=== PATIENT | female | born 1960 | race Caucasian/White ===

== ENCOUNTER → 2016-09-27 | Outpatient (CLI) | payer OTHER ==
--- NOTE | 2016-09-27 16:10 | BD ---
EXAMINATION TYPE: MG DEXA axial skeleton. DATE OF EXAM: 09/27/2016 COMPARISON: NONE CLINICAL HISTORY: post menopausal Height: 5'5 Weight: 189 FRAX RISK QUESTIONS: Alcohol (3 or more units per day): no Family History (Parent hip fracture): no Glucocorticoids (More than 3mos): no (Ex: prednisone, prednisolone, methylprednisolone, dexamethasone, and hydrocortisone). History of Fracture in Adulthood: no Secondary Osteoporosis: 1. Type 1 Diabetes: no 2. Hyperthyroidism: no 3. Menopause before 45: yes 4. Malnutrition: no 5. Chronic liver disease: no Rheumatoid Arthritis: no Current Tobacco Use: yes RISK FACTORS HISTORY OF: Surgery to Spine/ C 45 fusion When: 2006 Postmenopausal woman: MEDICATIONS: Additional Medications: blood pressure, Paxil, albuterin, Additional History: post menopausal EXAM MEASUREMENTS: Bone mineral densitometry was performed using the [facility] System. Bone mineral density as measured about the Lumbar spine is: ----- L1-L4(G/cm2): 1.206 T Score Values are as follows: ----- L2: -0.4 ----- L3: -0.1 ----- L4: 0.5 ----- L1-L4:0.1 Bone mineral density about the R hip (g/cm2): 0.781 Bone mineral density about the L hip (g/cm2): 0.756 T Score values are as follows: -----R Neck: -1.9 -----L Neck: -2.0 -----R Total: -1.6 -----L Total: -1.8 IMPRESSION: Osteopenia (T Score between -2.5 and -1 as noted by T score values: [place] Hips There is slightly increased risk of fracture and the patient may be considered for treatment. Re-Screen 2-5 years. NOTE: T-SCORE=SD OF THE YOUNG ADULT MEAN.
--- NOTE | 2016-09-28 13:11 | MM ---
Reason for exam: screening (asymptomatic). Last mammogram was performed 2 years and 8 months ago. History: Patient is postmenopausal. Family history of breast cancer in maternal grandmother, breast cancer in paternal aunt, and breast cancer in paternal grandmother. Took estrogen for 7 years. Physical Findings: A clinical breast exam by your physician is recommended on an annual basis and results should be correlated with mammographic findings. MG Screening Mammo w CAD Bilateral CC and MLO view(s) were taken. Prior study comparison: January 29, 2014, bilateral MG screening mammo w CAD. April 21, 2011, bilateral digital screening mammo w/CAD. There are scattered fibroglandular densities. No significant changes when compared with prior studies. ASSESSMENT: Negative, BI-RAD 1 RECOMMENDATION: Routine screening mammogram of both breasts in 1 year.
== END | disposition home or self-care (01) ==
LOC: RADMAMWWP 15:14
PROVIDERS: ATTEND Family Medicine
DX: Z12.31 Encounter for screening mammogram for malignant neoplasm of breast (principal); N95.1 Menopausal and female climacteric states; M85.80 Other specified disorders of bone density and structure, unspecified site
CPT/HCPCS: 77080; G0202

== ENCOUNTER 2017-05-11 20:27 | Inpatient (IN) | payer MEDICAID, OTHER ==
[2017-05-11] MEDS ORDERED: SODIUM CHLORIDE 0.9% 1,000 ML IV STA (20:42)
[2017-05-11] MEDS: SODIUM CHLORIDE 0.9% 1,000 ML IV SCH (20:55)
[2017-05-11 20:56] LABS: Basophils % (A) 1 %; Eosinophils # (A) 0.1 k/uL (0-0.7); Eosinophils % (A) 3 %; HGB 12.3 gm/dL (11.4-16.0); Lymphocytes # (A) 2.2 k/uL (1.0-4.8); Lymphocytes % (A) 43 %; MCH 31.4 pg (25.0-35.0); MCHC 33.3 g/dL (31.0-37.0); MCV 94.4 fL (80.0-100.0); Mean Platelet Volume 7.9; Monocytes # (A) 0.3 k/uL (0-1.0); Monocytes % (A) 5 %; Neutrophils # (A) 2.4 k/uL (1.3-7.7); Neutrophils % (A) 47 %; Platelet Count 135 k/uL (150-450); RBC 3.92 m/uL (3.80-5.40); RDW 13.2 % (11.5-15.5); WBC 5.1 k/uL (3.8-10.6)
--- NOTE | 2017-05-11 20:57 | ED ---
General Adult HPI - General Source: patient, EMS, RN notes reviewed, old records reviewed Mode of arrival: EMS Limitations: altered mental status <Rd Concepcion - Last Filed: 05/11/17 21:59> <Giancarlo Cornell - Last Filed: 05/12/17 06:51> - General Chief complaint: Overdose Stated complaint: overdose Time Seen by Provider: 05/11/17 20:36 - History of Present Illness Initial comments: 57-year-old female presents with suspected overdose. Patient To her boyfriend lisette walden, she was found by EMS with an empty prescription bottle for trazodone. These were 100 mg tablets, initial troponin was 30. Patient admits that she took 3 or 4 tablets. She also admits to drinking alcohol. At the time my evaluation she states this was an attempt to sleep. She denies any pain complaints. She is alert and oriented 3. (Rd Concepcion) - Related Data Home Medications Medication Instructions Recorded Confirmed Bisoprolol-Hctz 2.5-6.25 mg [Ziac 1 tab PO DAILY 05/11/17 05/11/17 2.5-6.25] Ergocalciferol (Vitamin D2) 50,000 unit PO Q30D 05/11/17 05/11/17 [Vitamin D2] Ibuprofen [Motrin] 800 mg PO TID PRN 05/11/17 05/11/17 Loratadine [Claritin] 10 mg PO DAILY 05/11/17 05/11/17 PARoxetine HCL [Paxil] 40 mg PO DAILY 05/11/17 05/11/17 traZODone HCL [Desyrel] 100 mg PO HS 05/11/17 05/11/17 Allergies Allergy/AdvReac Type Severity Reaction Status Date / Time codeine Allergy Unknown Verified 05/11/17 20:30 Sulfa (Sulfonamide Allergy Unknown Verified 05/11/17 20:30 Antibiotics) Review of Systems ROS Other: All systems not noted in ROS Statement are negative. <Rd Concepcion - Last Filed: 05/11/17 21:59> ROS Other: All systems not noted in ROS Statement are negative. <Giancarlo Cornell - Last Filed: 05/12/17 06:51> ROS Statement: Those systems with pertinent positive or pertinent negative responses have been documented in the HPI. Past Medical History Past Medical History: Hypertension Additional Past Medical History / Comment(s): gastric by pass in 2001 History of Any Multi-Drug Resistant Organisms: None Reported Past Surgical History: Cholecystectomy Additional Past Surgical History / Comment(s): GASTRIC BYPASS. Past Anesthesia/Blood Transfusion Reactions: No Reported Reaction Past Psychological History: Depression Smoking Status: Unknown if ever smoked Past Alcohol Use History: Heavy, Occasional Past Drug Use History: Unable to Obtain - Past Family History Father Family Medical History: Cancer Additional Family Medical History / Comment(s): both mom and dad of CA and sister has diabetes <Rd Concepcion - Last Filed: 05/11/17 21:59> General Exam Limitations: altered mental status General appearance: lethargic Head exam: Present: atraumatic, normocephalic Eye exam: Present: normal appearance, PERRL ENT exam: Present: mucous membranes dry Neck exam: Present: normal inspection. Absent: tenderness, meningismus Respiratory exam: Present: normal lung sounds bilaterally. Absent: respiratory distress Cardiovascular Exam: Present: regular rate, normal rhythm GI/Abdominal exam: Present: soft. Absent: distended, tenderness Extremities exam: Present: normal inspection, full ROM. Absent: tenderness, normal capillary refill Neurological exam: Present: alert, oriented X3, CN II-XII intact. Absent: motor sensory deficit Psychiatric exam: Present: depressed, flat affect, suicidal ideation Skin exam: Present: warm, dry, intact. Absent: cyanosis, diaphoretic <Rd Concepcion - Last Filed: 05/11/17 21:59> Course <Rd Concepcion - Last Filed: 05/11/17 21:59> <Giancarlo Cornell - Last Filed: 05/12/17 06:51> Vital Signs 05/11/17 05/11/17 05/11/17 20:30 22:01 23:18 Temperature 97.0 F L Pulse Rate 81 87 73 Respiratory 18 18 18 Rate Blood Pressure 128/70 127/75 95/57 O2 Sat by Pulse 100 95 98 Oximetry 05/12/17 05/12/17 02:00 04:15 Temperature 76 F L Pulse Rate 77 Respiratory 18 18 Rate Blood Pressure 92/50 108/55 O2 Sat by Pulse 95 94 L Oximetry - Reevaluation(s) Reevaluation #1: 05/11/17 22:00 Case discussed with poison control, recommend monitoring of QT, recommending giving magnesium sulfate for QT greater than 500. Repeat EKG does show QT at 511, she received 2 g of IV magnesium. Patient did try recommends 6 hours monitoring for trazodone overdose, and patient will be observed awaiting clinical sobriety. She will be evaluated by EPS (Rd Concepcion) Reevaluation #2: 05/12/17 0100 Patient's care is signed out to Dr. Cornell at shift change, awaiting sobriety, medical clearance, and EPS evaluation for suicide attempt. (Rd Concepcion) 05/12/17 02:45 Repeat EKG shows normal sinus rhythm 79. IA 152. QRS 90. QT or 28. QTC 490. Normal axis. Normal QRS. No acute ST change. (Giancarlo Cornell) EKG Findings - EKG Comments: EKG Findings:: Sinus rhythm with occasional PVC, ventricular rate 78, IA interval 172, QRS duration 108, QTC is prolonged at 501. No signs of acute ischemia. Repeat EKG at 2156 shows normal sinus rhythm with prolonged QT, ventricular rate 75, IA interval 166, QRS duration 100, QTC 511 which is prolonged. <Rd Concepcion - Last Filed: 05/11/17 21:59> Medical Decision Making - Lab Data Result diagrams: 05/11/17 20:40 05/11/17 20:40 <Rd Concepcion - Last Filed: 05/11/17 21:59> - Lab Data Result diagrams: 05/11/17 20:40 05/11/17 20:40 <Giancarlo Cornell - Last Filed: 05/12/17 06:51> - Medical Decision Making Patient was seen by mental health services, who will admit. (Giancarlo Cornell) - Lab Data Lab Results 05/11/17 05/11/17 05/11/17 Range/Units 20:40 20:40 20:40 WBC 5.1 (3.8-10.6) k/uL RBC 3.92 (3.80-5.40) m/uL Hgb 12.3 (11.4-16.0) gm/dL Hct 37.0 (34.0-46.0) % MCV 94.4 (80.0-100.0) fL MCH 31.4 (25.0-35.0) pg MCHC 33.3 (31.0-37.0) g/dL RDW 13.2 (11.5-15.5) % Plt Count 135 L (150-450) k/uL Neutrophils % 47 % Lymphocytes % 43 % Monocytes % 5 % Eosinophils % 3 % Basophils % 1 % Neutrophils # 2.4 (1.3-7.7) k/uL Lymphocytes # 2.2 (1.0-4.8) k/uL Monocytes # 0.3 (0-1.0) k/uL Eosinophils # 0.1 (0-0.7) k/uL Basophils # 0.0 (0-0.2) k/uL PT (9.0-12.0) sec INR (<1.2) Sodium 141 (137-145) mmol/L Potassium 3.3 L (3.5-5.1) mmol/L Chloride 104 (98-107) mmol/L Carbon Dioxide 21 L (22-30) mmol/L Anion Gap 16 mmol/L BUN 17 (7-17) mg/dL Creatinine 0.50 L (0.52-1.04) mg/dL Est GFR (CKD-EPI)AfAm >90 (>60 ml/min/1.73 sqM) Est GFR (CKD-EPI)NonAf >90 (>60 ml/min/1.73 sqM) Glucose 124 H (74-99) mg/dL Lactic Ac Sepsis Rflx Plasma Lactic Acid Jet 2.4 H* (0.7-2.0) mmol/L Calcium 8.2 L (8.4-10.2) mg/dL Phosphorus 4.3 (2.5-4.5) mg/dL Magnesium 2.0 (1.6-2.3) mg/dL Total Bilirubin <0.1 L (0.2-1.3) mg/dL AST 33 (14-36) U/L ALT 32 (9-52) U/L Alkaline Phosphatase 92 (38-126) U/L Total Protein 5.9 L (6.3-8.2) g/dL Albumin 3.6 (3.5-5.0) g/dL Lipase 152 (23-300) U/L Urine Color Urine Appearance (Clear) Urine pH (5.0-8.0) Ur Specific [place] (1.001-1.035) Urine Protein (Negative) Urine Glucose (UA) (Negative) Urine Ketones (Negative) Urine Blood (Negative) Urine Nitrite (Negative) Urine Bilirubin (Negative) Urine Urobilinogen (<2.0) mg/dL Ur Leukocyte Esterase (Negative) Urine RBC (0-5) /hpf Urine Mucus (None) /hpf Salicylates <1.0 mg/dL Urine Opiates Screen (NotDetected) Ur Oxycodone Screen (NotDetected) Urine Methadone Screen (NotDetected) Ur Propoxyphene Screen (NotDetected) Acetaminophen <10.0 ug/mL Ur Barbiturates Screen (NotDetected) U Tricyclic Antidepress (NotDetected) Ur Phencyclidine Scrn (NotDetected) Ur Amphetamines Screen (NotDetected) U Methamphetamines Scrn (NotDetected) U Benzodiazepines Scrn (NotDetected) Urine Cocaine Screen (NotDetected) U Marijuana (THC) Screen (NotDetected) Serum Alcohol 236 mg/dL 05/11/17 05/11/17 05/11/17 Range/Units 20:40 20:47 20:47 WBC (3.8-10.6) k/uL RBC (3.80-5.40) m/uL Hgb (11.4-16.0) gm/dL Hct (34.0-46.0) % MCV (80.0-100.0) fL MCH (25.0-35.0) pg MCHC (31.0-37.0) g/dL RDW (11.5-15.5) % Plt Count (150-450) k/uL Neutrophils % % Lymphocytes % % Monocytes % % Eosinophils % % Basophils % % Neutrophils # (1.3-7.7) k/uL Lymphocytes # (1.0-4.8) k/uL Monocytes # (0-1.0) k/uL Eosinophils # (0-0.7) k/uL Basophils # (0-0.2) k/uL PT 10.1 (9.0-12.0) sec INR 1.0 (<1.2) Sodium (137-145) mmol/L Potassium (3.5-5.1) mmol/L Chloride (98-107) mmol/L Carbon Dioxide (22-30) mmol/L Anion Gap mmol/L BUN (7-17) mg/dL Creatinine (0.52-1.04) mg/dL Est GFR (CKD-EPI)AfAm (>60 ml/min/1.73 sqM) Est GFR (CKD-EPI)NonAf (>60 ml/min/1.73 sqM) Glucose (74-99) mg/dL Lactic Ac Sepsis Rflx Plasma Lactic Acid Jet (0.7-2.0) mmol/L Calcium (8.4-10.2) mg/dL Phosphorus (2.5-4.5) mg/dL Magnesium (1.6-2.3) mg/dL Total Bilirubin (0.2-1.3) mg/dL AST (14-36) U/L ALT (9-52) U/L Alkaline Phosphatase (38-126) U/L Total Protein (6.3-8.2) g/dL Albumin (3.5-5.0) g/dL Lipase (23-300) U/L Urine Color Yellow Urine Appearance Clear (Clear) Urine pH 5.0 (5.0-8.0) Ur Specific [place] 1.011 (1.001-1.035) Urine Protein Negative (Negative) Urine Glucose (UA) Negative (Negative) Urine Ketones Negative (Negative) Urine Blood Trace H (Negative) Urine Nitrite Negative (Negative) Urine Bilirubin Negative (Negative) Urine Urobilinogen <2.0 (<2.0) mg/dL Ur Leukocyte Esterase Negative (Negative) Urine RBC 2 (0-5) /hpf Urine Mucus Rare H (None) /hpf Salicylates mg/dL Urine Opiates Screen Not Detected (NotDetected) Ur Oxycodone Screen Not Detected (NotDetected) Urine Methadone Screen Not Detected (NotDetected) Ur Propoxyphene Screen Not Detected (NotDetected) Acetaminophen ug/mL Ur Barbiturates Screen Not Detected (NotDetected) U Tricyclic Antidepress Not Detected (NotDetected) Ur Phencyclidine Scrn Not Detected (NotDetected) Ur Amphetamines Screen Not Detected (NotDetected) U Methamphetamines Scrn Not Detected (NotDetected) U Benzodiazepines Scrn Not Detected (NotDetected) Urine Cocaine Screen Not Detected (NotDetected) U Marijuana (THC) Screen Not Detected (NotDetected) Serum Alcohol mg/dL 05/11/17 05/12/17 Range/Units 21:22 00:32 WBC (3.8-10.6) k/uL RBC (3.80-5.40) m/uL Hgb (11.4-16.0) gm/dL Hct (34.0-46.0) % MCV (80.0-100.0) fL MCH (25.0-35.0) pg MCHC (31.0-37.0) g/dL RDW (11.5-15.5) % Plt Count (150-450) k/uL Neutrophils % % Lymphocytes % % Monocytes % % Eosinophils % % Basophils % % Neutrophils # (1.3-7.7) k/uL Lymphocytes # (1.0-4.8) k/uL Monocytes # (0-1.0) k/uL Eosinophils # (0-0.7) k/uL Basophils # (0-0.2) k/uL PT (9.0-12.0) sec INR (<1.2) Sodium (137-145) mmol/L Potassium (3.5-5.1) mmol/L Chloride (98-107) mmol/L Carbon Dioxide (22-30) mmol/L Anion Gap mmol/L BUN (7-17) mg/dL Creatinine (0.52-1.04) mg/dL Est GFR (CKD-EPI)AfAm (>60 ml/min/1.73 sqM) Est GFR (CKD-EPI)NonAf (>60 ml/min/1.73 sqM) Glucose (74-99) mg/dL Lactic Ac Sepsis Rflx Y Plasma Lactic Acid Jet 1.7 (0.7-2.0) mmol/L Calcium (8.4-10.2) mg/dL Phosphorus (2.5-4.5) mg/dL Magnesium (1.6-2.3) mg/dL Total Bilirubin (0.2-1.3) mg/dL AST (14-36) U/L ALT (9-52) U/L Alkaline Phosphatase (38-126) U/L Total Protein (6.3-8.2) g/dL Albumin (3.5-5.0) g/dL Lipase (23-300) U/L Urine Color Urine Appearance (Clear) Urine pH (5.0-8.0) Ur Specific [place] (1.001-1.035) Urine Protein (Negative) Urine Glucose (UA) (Negative) Urine Ketones (Negative) Urine Blood (Negative) Urine Nitrite (Negative) Urine Bilirubin (Negative) Urine Urobilinogen (<2.0) mg/dL Ur Leukocyte Esterase (Negative) Urine RBC (0-5) /hpf Urine Mucus (None) /hpf Salicylates mg/dL Urine Opiates Screen (NotDetected) Ur Oxycodone Screen (NotDetected) Urine Methadone Screen (NotDetected) Ur Propoxyphene Screen (NotDetected) Acetaminophen ug/mL Ur Barbiturates Screen (NotDetected) U Tricyclic Antidepress (NotDetected) Ur Phencyclidine Scrn (NotDetected) Ur Amphetamines Screen (NotDetected) U Methamphetamines Scrn (NotDetected) U Benzodiazepines Scrn (NotDetected) Urine Cocaine Screen (NotDetected) U Marijuana (THC) Screen (NotDetected) Serum Alcohol mg/dL Disposition <Rd Concepcion - Last Filed: 05/11/17 21:59> <Giancarlo Cornell - Last Filed: 05/12/17 06:51> Clinical Impression: Depression, Drug overdose Disposition: TRANSFER TO PSYCH HOSP/UNIT Referrals: None,Stated [Primary Care Provider] - 1-2 days
[2017-05-11 21:02] LABS: Prothrombin Time 10.1 sec (9.0-12.0)
[2017-05-11 21:13] LABS: ALT 32 U/L (9-52); AST 33 U/L (14-36); Acetaminophen <10.0 ug/mL; Albumin 3.6 g/dL (3.5-5.0); Alkaline Phosphatase 92 U/L (38-126); Anion Gap 16 mmol/L; Blood Urea Nitrogen 17 mg/dL (7-17); Calcium 8.2 mg/dL (8.4-10.2); Carbon Dioxide 21 mmol/L (22-30); Chloride 104 mmol/L (98-107); Glucose 124 mg/dL (74-99); Lipase 152 U/L (23-300); Phosphorus 4.3 mg/dL (2.5-4.5); Potassium 3.3 mmol/L (3.5-5.1); Salicylate <1.0 mg/dL; Sodium 141 mmol/L (137-145); Total Bilirubin <0.1 mg/dL (0.2-1.3); Total Protein 5.9 g/dL (6.3-8.2)
[2017-05-11 21:14] LABS: Appearance,Urine Clear (Clear); Bilirubin,Urine Negative (Negative); Blood,Urine Trace (Negative); Color,Urine Yellow; Glucose,Urine (UA) Negative (Negative); Ketones,Urine Negative (Negative); Leukocyte Esterase,Urine Negative (Negative); Mucus,Urine Rare /hpf; Nitrite,Urine Negative (Negative); Protein,Urine Negative (Negative); RBC,Urine 2 /hpf (0-5); Specific Gravity,Urine 1.011 (1.001-1.035); Urobilinogen,Urine <2.0 mg/dL (<2.0)
[2017-05-11 21:15] LABS: Amphetamine Screen,Urine Not Detected (NotDetected); Barbiturate Screen,Urine Not Detected (NotDetected); Benzodiazepines Screen,Urine Not Detected (NotDetected); Cocaine Screen,Urine Not Detected (NotDetected); Methadone Screen, Urine Not Detected (NotDetected); Opiate Screen,Urine Not Detected (NotDetected); Oxycodone Screen, Urine Not Detected (NotDetected); Phencyclidine Screen,Urine Not Detected (NotDetected); Tricyclic Antidepressant,Urine Not Detected (NotDetected); Urn Cannabinoid Scrn Not Detected (NotDetected)
[2017-05-11 21:24] LABS: Alcohol 236 mg/dL
[2017-05-11] MEDS ORDERED: POTASSIUM CHLORIDE ER 20 MEQ TAB.ER PO STA (22:36)
[2017-05-11] MEDS: MAGNESIUM SULFATE-D5W PMX 1 GM in DEXTROSE/WATER 1 100ML.BAG IVPB SCH ×2 (22:46→23:47)
[2017-05-12] MEDS ORDERED: SODIUM CHLORIDE 0.9% 1,000 ML IV ONE (02:28)
[2017-05-12] MEDS ORDERED: MAG HYDROX/AL HYDROX/SIMETH 30 ML CUP PO PRN (07:07)
[2017-05-12] MEDS ORDERED: MAGNESIUM HYDROXIDE 2,400 MG/10 ML CUP PO PRN (07:07)
--- NOTE | 2017-05-12 09:56 | P.HP ---
Psychiatric H&P - . H&P Date: 05/12/17 History & Physical: Allergies Allergy/AdvReac Type Severity Reaction Status Date / Time codeine Allergy Unknown Verified 05/11/17 20:30 Sulfa (Sulfonamide Allergy Unknown Verified 05/11/17 20:30 Antibiotics) Vital Signs Temp 98.8 F 05/12/17 07:46 Pulse 83 05/12/17 07:46 Resp 16 05/12/17 07:46 BP 139/88 05/12/17 07:46 Pulse Ox 96 05/12/17 07:46 Intake & Output 05/11/17 05/12/17 05/12/17 18:59 06:59 18:59 Weight 83.007 kg 85.2 kg Laboratory Last Values WBC 5.1 k/uL (3.8-10.6) 05/11/17 20:40 RBC 3.92 m/uL (3.80-5.40) 05/11/17 20:40 Hgb 12.3 gm/dL (11.4-16.0) 05/11/17 20:40 Hct 37.0 % (34.0-46.0) 05/11/17 20:40 MCV 94.4 fL (80.0-100.0) 05/11/17 20:40 MCH 31.4 pg (25.0-35.0) 05/11/17 20:40 MCHC 33.3 g/dL (31.0-37.0) 05/11/17 20:40 RDW 13.2 % (11.5-15.5) 05/11/17 20:40 Plt Count 135 k/uL (150-450) L 05/11/17 20:40 Neutrophils % 47 % 05/11/17 20:40 Lymphocytes % 43 % 05/11/17 20:40 Monocytes % 5 % 05/11/17 20:40 Eosinophils % 3 % 05/11/17 20:40 Basophils % 1 % 05/11/17 20:40 Neutrophils # 2.4 k/uL (1.3-7.7) 05/11/17 20:40 Lymphocytes # 2.2 k/uL (1.0-4.8) 05/11/17 20:40 Monocytes # 0.3 k/uL (0-1.0) 05/11/17 20:40 Eosinophils # 0.1 k/uL (0-0.7) 05/11/17 20:40 Basophils # 0.0 k/uL (0-0.2) 05/11/17 20:40 PT 10.1 sec (9.0-12.0) 05/11/17 20:40 INR 1.0 (<1.2) 05/11/17 20:40 Sodium 141 mmol/L (137-145) 05/11/17 20:40 Potassium 3.3 mmol/L (3.5-5.1) L 05/11/17 20:40 Chloride 104 mmol/L (98-107) 05/11/17 20:40 Carbon Dioxide 21 mmol/L (22-30) L 05/11/17 20:40 Anion Gap 16 mmol/L 05/11/17 20:40 BUN 17 mg/dL (7-17) 05/11/17 20:40 Creatinine 0.50 mg/dL (0.52-1.04) L 05/11/17 20:40 Est GFR (CKD-EPI)AfAm >90 (>60 ml/min/1.73 sqM) 05/11/17 20:40 Est GFR (CKD-EPI)NonAf >90 (>60 ml/min/1.73 sqM) 05/11/17 20:40 Glucose 124 mg/dL (74-99) H 05/11/17 20:40 Lactic Ac Sepsis Rflx Y 05/11/17 21:22 Plasma Lactic Acid Jet 1.7 mmol/L (0.7-2.0) 05/12/17 00:32 Calcium 8.2 mg/dL (8.4-10.2) L 05/11/17 20:40 Phosphorus 4.3 mg/dL (2.5-4.5) 05/11/17 20:40 Magnesium 2.0 mg/dL (1.6-2.3) 05/11/17 20:40 Total Bilirubin <0.1 mg/dL (0.2-1.3) L 05/11/17 20:40 AST 33 U/L (14-36) 05/11/17 20:40 ALT 32 U/L (9-52) 05/11/17 20:40 Alkaline Phosphatase 92 U/L (38-126) 05/11/17 20:40 Total Protein 5.9 g/dL (6.3-8.2) L 05/11/17 20:40 Albumin 3.6 g/dL (3.5-5.0) 05/11/17 20:40 Lipase 152 U/L (23-300) 05/11/17 20:40 Urine Color Yellow 05/11/17 20:47 Urine Appearance Clear (Clear) 05/11/17 20:47 Urine pH 5.0 (5.0-8.0) 05/11/17 20:47 Ur Specific [place] 1.011 (1.001-1.035) 05/11/17 20:47 Urine Protein Negative (Negative) 05/11/17 20:47 Urine Glucose (UA) Negative (Negative) 05/11/17 20:47 Urine Ketones Negative (Negative) 05/11/17 20:47 Urine Blood Trace (Negative) H 05/11/17 20:47 Urine Nitrite Negative (Negative) 05/11/17 20:47 Urine Bilirubin Negative (Negative) 05/11/17 20:47 Urine Urobilinogen <2.0 mg/dL (<2.0) 05/11/17 20:47 Ur Leukocyte Esterase Negative (Negative) 05/11/17 20:47 Urine RBC 2 /hpf (0-5) 05/11/17 20:47 Urine Mucus Rare /hpf (None) H 05/11/17 20:47 Salicylates <1.0 mg/dL 05/11/17 20:40 Urine Opiates Screen Not Detected (NotDetected) 05/11/17 20:47 Ur Oxycodone Screen Not Detected (NotDetected) 05/11/17 20:47 Urine Methadone Screen Not Detected (NotDetected) 05/11/17 20:47 Ur Propoxyphene Screen Not Detected (NotDetected) 05/11/17 20:47 Acetaminophen <10.0 ug/mL 05/11/17 20:40 Ur Barbiturates Screen Not Detected (NotDetected) 05/11/17 20:47 U Tricyclic Antidepress Not Detected (NotDetected) 05/11/17 20:47 Ur Phencyclidine Scrn Not Detected (NotDetected) 05/11/17 20:47 Ur Amphetamines Screen Not Detected (NotDetected) 05/11/17 20:47 U Methamphetamines Scrn Not Detected (NotDetected) 05/11/17 20:47 U Benzodiazepines Scrn Not Detected (NotDetected) 05/11/17 20:47 Urine Cocaine Screen Not Detected (NotDetected) 05/11/17 20:47 U Marijuana (THC) Screen Not Detected (NotDetected) 05/11/17 20:47 Serum Alcohol 236 mg/dL 05/11/17 20:40 05/12/17 09:35 Identification: Harika Yeh is a 57 years old white female living in [facility]. She was admitted to [facility] on under a petition stating that she is probably suicidal. History of present illness: When she was asked for the reasons for coming to hospital she said she was drinking, wanted to sleep and took a few trazodone. She does not remember anything after that. She said she has been having depression for the last more than 23 years. Initially he started only during [place] and later on it has been continuous and worse in [place]. Her symptoms of depression include sitting and standing blankly, sleeping poorly, having no energy or desire to do things, getting upset and irritable easily, getting very emotional etc. She denies hallucinations and delusional thinking. She also reports of what appears to be manic episodes lasting for a few days when she will get drunk go out and constitution party become promiscuous spend a lot of money etc. Previous psychiatric history/drug and alcohol abuse: She was in psychiatric hospitals about 5 times in the past and these were mostly related to alcoholism and detox. She does not see a psychiatrist or a therapist. She sees her family doctor who has prescribed her Paxil 40 mg a day and trazodone 100 mg at bedtime. She started to drink alcohol sometimes after graduating from high school. She drinks on binges of 4-5 days. 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 Social history: She is ALLERGIC to codeine and sulfa and shrimp. She has chronic low back pain. She has hypertension. She had 2 C-sections, tubectomy, hysterectomy in 1998, gastric bypass for weight loss. She has 2 children and had 2 elective abortions. Social history: She has 1 year of college in general studies. When she was growing up and going to school she used to talk too much was pretty outgoing, had a lot of friends, her mind is to wander, was interfering with other students schoolwork and had detentions. She played clarinet in the [employer] and was also in choir she was raised well by her parents. She liked the agitation but her mother refused to provide this. Mother did not like patient to hug her rest her head in her arms etc. Her father in 1991 from cancer of the bladder. She had a child born out of wedlock before she got in 1984 and was in . She has 1 child from that marriage she had 2 elective abortions after the divorce and her second marriage was in 1999 and was in 2003. Currently she lives with her stepfather and is currently laid off. She works for a [employer] and has been working there since about December or so. She has Medicaid and will get [employer] insurance starting for 118. She was not in the service. She is [place] and and goes to episcopal at times. She is heterosexual but does not have a boyfriend now. She denies any pending legal issues. Family history: Her father of cancer of the bladder. Mother of lymphoma. Her sister apparently has undiagnosed depression. Mental status examination: This is a white ambulatory female with adequate hygiene. She is polite and cooperative. She does not show psychomotor agitation or retardation. But she left the office twice to get some water. Her mood where he is from euthymic, sad to elated. Her affect varies from being tearful to happy and laughter. She denies hallucinations and delusional thinking. She denies suicidal and homicidal ideas. She is well oriented. She is able to recall 2 out of 3 items after 5 minutes. She is able to name the last 4 presidents correctly. She is able to spell house both forwards and backwards correctly. She is able to say 8+7 is 15 and 87 is 56 without any difficulty. Her insight is poor and judgment is impaired as evidenced by continued alcohol abuse blacking out and engaging in self-destructive behavior. Next Diagnostic impression: Other specified bipolar and related disorder F 31.89. Alcohol use disorder severe F 10.20. ALLERGY to codeine sulfa and shrimp. Hypertension. Treatment plan: She will have physical examination and psychosocial evaluation. She will receive milieu therapy group therapy individual therapy occupational therapy recreational therapy and medication education. She will be observed for withdrawal symptoms and self-destructive behavior. After discussing her condition and proposed treatment it was agreed to discontinue her axle and trazodone and start her on Seroquel 100 mg at bedtime and Trileptal 300 mg twice a day for more stabilization. Adjust the dose as necessary. Continue her home medication of Bisoprolo-HCT 2.5-6.25 daily for hypertension. Discharge with outpatient follow-up. Treatment goals: She will be free of withdrawal symptoms and suicidal thoughts. She will learn better coping skills. Her mood will be stable. Estimated length of stay: 5-10 days.
[2017-05-12] MEDS: OXcarbazepine 300 MG TAB PO SCH ×2 (10:07→21:40)
[2017-05-12] MEDS: BISOPROLOL-HCTZ 2.5-6.25 MG 1 EACH TAB PO SCH (10:36)
[2017-05-12] MEDS: ACETAMINOPHEN TAB 325 MG TAB PO PRN ×2 (10:36→21:39)
[2017-05-12] MEDS: SODIUM CHLORIDE 0.9% 1,000 ML IV SCH ×2 (12:37→17:08)
[2017-05-12] MEDS: MULTIVITAMINS, THERA 1 EACH TAB PO SCH (16:38)
[2017-05-12 19:02] LABS: Hemoglobin A1C 5.1 % (4.0-6.0)
[2017-05-12] MEDS: QUEtiapine 100 MG TAB PO SCH (21:40)
--- NOTE | 2017-05-13 09:17 | P.PN ---
Progress Note - Text Progress Note Date: 05/13/17 Patient was seen for follow-up examination. She said she talked to her stepfather and found out more about what happened to her before she came here. Apparently she had too much to drink and take state that she was going to or wished goodbye to her loved ones before passing out apparently her son came in and he saw her unconscious when he got on the latter and came inside the room through the window. Apparently he called 911 and patient was taken to Hospital. Patient is so surprised that she does not remember any of those things. She said her doctor Dr. Coleman was here to visit her yesterday and she had confessed to him that she was not quite honest with her history and she told me everything and she agrees that she has bipolar disorder and is happy that she is treated for that. She slept fairly well last night, attended groups and interacts with peers and staff. She takes her medications and does not have any adverse effects. This is a white ambulatory female with adequate hygiene. She is polite and cooperative. She does not show any psychomotor agitation or retardation. Her mood is somewhat dull and affect is appropriate. She insists that she is not suicidal or homicidal. She denies hallucinations and delusional thinking. She is well oriented with adequate memory concentration etc. Plan: Continue Seroquel 100 mg at bedtime Trileptal 300 mg twice a day for mood stabilization. Continue groups.
[2017-05-13] MEDS: LORATADINE 10 MG TAB PO SCH (09:20)
[2017-05-13] MEDS: OXcarbazepine 300 MG TAB PO SCH ×2 (09:21→20:50)
[2017-05-13] MEDS: ACETAMINOPHEN TAB 325 MG TAB PO PRN ×2 (09:21→16:30)
[2017-05-13] MEDS: BISOPROLOL-HCTZ 2.5-6.25 MG 1 EACH TAB PO SCH (09:21)
[2017-05-13 11:12] LABS: ALT 25 U/L (9-52); AST 35 U/L (14-36); Albumin 3.7 g/dL (3.5-5.0); Alkaline Phosphatase 74 U/L (38-126); Anion Gap 9 mmol/L; Blood Urea Nitrogen 12 mg/dL (7-17); Calcium 9.1 mg/dL (8.4-10.2); Carbon Dioxide 29 mmol/L (22-30); Chloride 98 mmol/L (98-107); Cholesterol 140 mg/dL (<200); Glucose 87 mg/dL (74-99); HDL Cholesterol 70 mg/dL (40-60); LDL Cholesterol,Calculated 39 mg/dL (0-99); Potassium 4.5 mmol/L (3.5-5.1); Sodium 136 mmol/L (137-145); Total Bilirubin 0.3 mg/dL (0.2-1.3); Total Protein 5.9 g/dL (6.3-8.2); Triglycerides 153 mg/dL (<150)
[2017-05-13 12:17] VITALS: BMI 30.3
[2017-05-13] MEDS: MULTIVITAMINS, THERA 1 EACH TAB PO SCH (12:47)
--- NOTE | 2017-05-13 15:47 | P.HPIM ---
History of Present Illness H&P Date: 05/13/17 Chief Complaint: Suicidal ideation. Alcoholism. This is a consultation/history and physical on a 57-year-old white female who struggled with depression for many many years. She is also struggle with alcoholism and was had during significant despondency. She binged drank alcohol and was texting to her family members that she wanted to end her life. Her son came to her rescue and she was appropriate transferred to the mental health unit. She is very very honest with psychiatry and they have diagnosed bipolar disorder. She is in agreement with this and is very positive about her recovery. Review of Systems Constitutional: Denies chills, Denies fever Eyes: denies blurred vision, denies pain Ears, nose, mouth and throat: Denies headache, Denies sore throat Respiratory: Denies cough Gastrointestinal: Denies abdominal pain, Denies diarrhea, Denies nausea, Denies vomiting Musculoskeletal: Denies myalgias Psychiatric: Reports depression, Reports hopelessness, Reports mood swings Endocrine: Denies fatigue, Denies weight change Past Medical History Past Medical History: Hypertension Additional Past Medical History / Comment(s): gastric by pass in 2001 History of Any Multi-Drug Resistant Organisms: None Reported Past Surgical History: Cholecystectomy Additional Past Surgical History / Comment(s): GASTRIC BYPASS. Past Anesthesia/Blood Transfusion Reactions: No Reported Reaction Smoking Status: Unknown if ever smoked - Past Family History Father Family Medical History: Cancer Additional Family Medical History / Comment(s): both mom and dad of CA and sister has diabetes Medications and Allergies Home Medications Medication Instructions Recorded Confirmed Type Bisoprolol-Hctz 2.5-6.25 mg [Ziac 1 tab PO DAILY 05/11/17 05/12/17 History 2.5-6.25] Ergocalciferol (Vitamin D2) 50,000 unit PO Q30D 05/11/17 05/12/17 History [Vitamin D2] Ibuprofen [Motrin] 800 mg PO TID PRN 05/11/17 05/12/17 History Loratadine [Claritin] 10 mg PO DAILY 05/11/17 05/12/17 History PARoxetine HCL [Paxil] 40 mg PO DAILY 05/11/17 05/12/17 History traZODone HCL [Desyrel] 100 mg PO HS 05/11/17 05/12/17 History Allergies Allergy/AdvReac Type Severity Reaction Status Date / Time codeine Allergy Unknown Verified 05/12/17 20:35 Sulfa (Sulfonamide Allergy Unknown Verified 05/12/17 20:35 Antibiotics) Physical Exam Vitals: Vital Signs Temp Pulse Resp BP 05/13/17 09:27 96 18 127/84 05/13/17 06:34 97.9 F 68 16 97/58 Intake and Output 05/13/17 05/13/17 05/13/17 06:59 14:59 22:59 Other: Weight 85.2 kg - Constitutional General appearance: no acute distress - EENT Eyes: EOMI - Neck Neck: no lymphadenopathy - Respiratory Respiratory: bilateral: CTA - Cardiovascular Rhythm: regular Heart sounds: normal: S1, S2 Abnormal Heart Sounds: no S3 Gallop - Gastrointestinal General gastrointestinal: soft, no tenderness - Neurologic Neurologic: CNII-XII intact - Psychiatric Psychiatric: A&O x's 3, no appropriate affect Results CBC & Chem 7: 05/11/17 20:40 05/13/17 10:29 Labs: Abnormal Lab Results - Last 24 Hours (Table) 05/13/17 Range/Units 10:29 Sodium 136 L (137-145) mmol/L Total Protein 5.9 L (6.3-8.2) g/dL Triglycerides 153 H (<150) mg/dL HDL Cholesterol 70 H (40-60) mg/dL Thrombosis Risk Factor Assmnt - Choose All That Apply Each Factor Represents 1 point: Age 41-60 years, Obesity (BMI >25) Thrombosis Risk Factor Assessment Total Risk Factor Score: 2 Thrombosis Risk Factor Assessment Level: Low Risk Assessment and Plan (1) Alcoholism Current Visit: Yes Status: Acute Code(s): F10.20 - ALCOHOL DEPENDENCE, UNCOMPLICATED SNOMED Code(s): 5956047 (2) Depression Current Visit: Yes Status: Acute Code(s): F32.9 - MAJOR DEPRESSIVE DISORDER , SINGLE EPISODE, UNSPECIFIED SNOMED Code(s): 20223763 (3) Drug overdose Current Visit: Yes Status: Acute Code(s): T50.901A - POISONING BY UNSP DRUG/ MEDS/BIOL SUBST, ACCIDENTAL, INIT SNOMED Code(s): 34568450 Plan: Reconcile her medications as necessary. We will continue follow from medical perspective. Dr. Thomas's group will be covering for the weekend. I am hopeful of a possible recovery given her chronic illnesses. See orders otherwise. Time with Patient: Greater than 30
[2017-05-13] MEDS: QUEtiapine 100 MG TAB PO SCH (20:50)
[2017-05-14] MEDS: OXcarbazepine 300 MG TAB PO SCH ×2 (09:18→20:09)
[2017-05-14] MEDS: BISOPROLOL-HCTZ 2.5-6.25 MG 1 EACH TAB PO SCH (09:18)
[2017-05-14] MEDS: LORATADINE 10 MG TAB PO SCH (09:18)
[2017-05-14] MEDS: ACETAMINOPHEN TAB 325 MG TAB PO PRN ×2 (09:20→20:08)
[2017-05-14] MEDS: MULTIVITAMINS, THERA 1 EACH TAB PO SCH (12:57)
[2017-05-14] MEDS: PHENAZOPYRIDINE 200 MG TAB PO SCH ×2 (16:08→20:08)
[2017-05-14] MEDS: QUEtiapine 100 MG TAB PO SCH (20:09)
--- NOTE | 2017-05-15 00:41 | P.PN ---
Progress Note - Text Progress Note Date: 05/15/17 Patient was seen today. She denies current symptoms of depression, psychosis and steve. She reports good sleep and appetite. She reports being compliant with her medications. No side effects reported. She reports attending and participating in all unit activities and groups. No behavioral problems reported. Mental status exam This is a 57 year old woman. She apperas in fair grooming and hygiene. She is pleasant and cooperative. She does not show any psychomotor agitation or retardation. Her mood is euthymic and affect is appropriate. She denies suicidal or homicidal ideations She denies hallucinations and delusional thinking. She is well oriented with adequate memory concentration etc. Plan: Continue Seroquel 100 mg at bedtime Continue Trileptal 300 mg twice a day Monitor symptoms
[2017-05-15] MEDS: PHENAZOPYRIDINE 200 MG TAB PO SCH ×3 (09:06→20:37)
[2017-05-15] MEDS: BISOPROLOL-HCTZ 2.5-6.25 MG 1 EACH TAB PO SCH (09:06)
[2017-05-15] MEDS: OXcarbazepine 300 MG TAB PO SCH ×2 (09:07→20:37)
[2017-05-15] MEDS: LORATADINE 10 MG TAB PO SCH (09:08)
[2017-05-15] MEDS: ACETAMINOPHEN TAB 325 MG TAB PO PRN ×2 (09:10→15:51)
--- NOTE | 2017-05-15 11:41 | P.PN ---
Progress Note - Text Progress Note Date: 05/15/17 Patient was seen today. She reports feeling tired and fuzzy and is wondering if it is due to being started on the new medications. She however states she is able to concentrate and follow through what they talk in the groups. She says over the past few days she hasnt been sleeping well and attributes it being in the hospital and other patients being noisy. She stated her room has now been changed and is hopeful that she will be able to sleep well tonight. She says she was not going to groups over the past few days, but today she said she went to group and wants to attend all her groups from now on instead of staying to herself in her room. She reports feeling apprehensive about her discharge. She states she is worried what she might do after her discharge especially with regards to staying away from alcohol. She denies current symptoms of depression , steve or psychosis. She reports eating good. Reports being complaint with her medications. Mental status exam Patient is 57 year old woman. She is dressed casually, appears in fair grooming and hygiene. She maintains good eye contact. Her speech and thought process are goal directed. She reports her mood as happy and affect constricted. She denies auditory or visual hallucinations. She denies paranoia and does not appear delusional. She denies suicidal or homicidal ideations. She is laer and oriented to time place and person. Insight and judgment are fair and improving. Plan Continue Seroquel 100 mg at bedtime Continue Trileptal 300 mg twice a day for mood stabilization. Monitor symptoms
[2017-05-15] MEDS: MULTIVITAMINS, THERA 1 EACH TAB PO SCH (13:09)
[2017-05-15] MEDS: QUEtiapine 100 MG TAB PO SCH (20:37)
[2017-05-16] MEDS: PHENAZOPYRIDINE 200 MG TAB PO SCH ×3 (09:13→20:32)
[2017-05-16] MEDS: BISOPROLOL-HCTZ 2.5-6.25 MG 1 EACH TAB PO SCH (09:15)
[2017-05-16] MEDS: ACETAMINOPHEN TAB 325 MG TAB PO PRN ×3 (09:15→20:04)
[2017-05-16] MEDS: OXcarbazepine 300 MG TAB PO SCH (09:16)
[2017-05-16] MEDS: LORATADINE 10 MG TAB PO SCH (09:16)
--- NOTE | 2017-05-16 10:49 | P.PN ---
Progress Note - Text Progress Note Date: 05/16/17 Patient was seen for a follow-up examination. She said she does not sleep well because of "restless legs"and gets foggy after taking her morning Trileptal. She also said she is not ready to go home since she is scared to go back home. She really is not able to describe why she is afraid to go back home. She said she has about 250 or 350 dollars in credit card balance and does not know how to pay it. She said she has been exploring the possibility of going to [facility] for teen care program of one year. She was counseled about her medications and eventually it was agreed to change her Trileptal and Seroquel to Zyprexa 10 mg at bedtime. This is a white ambulatory female with good hygiene. She is polite and cooperative. She does not show any psychomotor agitation or retardation. Her speech is spontaneous relevant and goal-directed. Her mood is mildly dysphoric and affect is labile. She gets tearful quite easily. She denies suicide and homicide thoughts but she feels her mind is foggy and won't be able to function at home if she goes now. She denies hallucinations and delusional thinking. She is well oriented with good memory concentration etc. Plan: Change Seroquel and Trileptal to Zyprexa 10 mg at bedtime for more stabilization. Continue milieu groups and other therapies.
[2017-05-16] MEDS: MULTIVITAMINS, THERA 1 EACH TAB PO SCH (11:48)
[2017-05-16] MEDS ORDERED: OLANZapine 10 MG TAB PO SCH (21:00)
[2017-05-17 06:24] VITALS: RESP 16; TEMP 98.1
[2017-05-17] MEDS: MULTIVITAMINS, THERA 1 EACH TAB PO SCH (08:37)
[2017-05-17] MEDS: ACETAMINOPHEN TAB 325 MG TAB PO PRN (08:37)
[2017-05-17] MEDS: LORATADINE 10 MG TAB PO SCH (08:38)
[2017-05-17] MEDS: BISOPROLOL-HCTZ 2.5-6.25 MG 1 EACH TAB PO SCH (08:39)
[2017-05-17] MEDS: PHENAZOPYRIDINE 200 MG TAB PO SCH (08:42)
--- NOTE | 2017-05-17 10:42 | P.PN ---
Progress Note - Text Progress Note Date: 05/17/17 Patient was seen for routine follow-up examination. She slept very well last night on Zyprexa 10 mg at bedtime. She does not feel foggy this morning she feels better and is planning about her rehab [facility]. She does not have any adverse effects from Zyprexa. She initially asked if she can go back on Trileptal and Seroquel since she is concerned about weight gain on Zyprexa. She was counseled about her feeling foggy and having restless leg issues while on Trileptal and Seroquel and it was agreed for her to continue Zyprexa. This is a white ambulatory female with good hygiene. She is polite and cooperative. She does not show any psychomotor agitation or retardation. Her speech is spontaneous and goal-directed. Her mood is euthymic to cheerful and affect is appropriate. She denies hallucinations delusional thinking suicidal and homicidal ideas. Her sensorium is clear. Plan: Continue Zyprexa, groups and other therapies. Increase Claritin to 10 mg a day per her request.
[2017-05-17 11:21] VITALS: BP 119/79; PULSE 95
--- NOTE | 2017-05-17 14:27 | P.DS ---
Providers Date of admission: 05/12/17 07:03 Expected date of discharge: 05/17/17 Attending physician: Juan Reeves Consults: 05/12/17 07:07 Consult Physician Routine Consulting Provider: Ajith Coleman Consult Reason/Comments: H&P Do you want consulting provider notified?: Yes Primary care physician: Stated None Hospital Course: Patient had her psychiatric evaluation, physical examination and psychosocial evaluation. After psychiatric evaluation her condition was discussed with her and it was agreed to start her on Seroquel 100 mg at bedtime and Trileptal 300 mg twice a day for mood stabilization and discontinue her home medications of Paxil and trazodone because of her diagnosis of bipolar disorder. Her other medications for physical problems where continued. Patient's mood improved. But, she was complaining of poor sleep because of restless legs and feeling rather foggy in the morning after taking Trileptal. In view of this it was agreed to discontinue these medications and start her on Zyprexa 10 mg at bedtime after discussing its effects and side effects and precautions she has to take. She slept very well on this and her mood became very stable. She continued to deny suicide thoughts. She is planning on going home and then to the rehab. In view of all these it was agreed to discharge her. Condition on discharge: This is a white ambulatory female with good hygiene. She is polite friendly and cooperative. She does not show any psychomotor agitation or retardation. Her speech is spontaneous relevant and goal- directed. Her mood is euthymic and affect is appropriate. She denies hallucinations and delusional thinking. She denies suicidal and homicidal thoughts. Her insight and judgment have improved quite a bit. She is well oriented with good memory concentration general fund of knowledge etc. Diagnosis on discharge: Other specified bipolar and related disorder F 31.89. Alcohol use disorder severe F 10.20. ALLERGY to codeine and sulfa and shrimp. Hypertension. ALLERGIC rhinitis. 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 Plan - Discharge Summary Discharge Rx Participant: No New Discharge Prescriptions: New Acetaminophen Tab [Tylenol] 650 mg PO Q4HR PRN tab PRN Reason: Pain/Discomfort Bisoprolol-Hctz 2.5-6.25 mg [Ziac 2.5-6.25 MG] 1 each PO DAILY tab Loratadine [Claritin] 10 mg PO DAILY tab Multivitamins, Thera [Multivitamin (formulary)] 1 each PO DAILY@1200 tab OLANZapine [ZyPREXA] 10 mg PO HS 30 Days #30 tab Continue Ibuprofen [Motrin] 800 mg PO TID PRN PRN Reason: Pain Ergocalciferol (Vitamin D2) [Vitamin D2] 50,000 unit PO Q30D Discontinued traZODone HCL [Desyrel] 100 mg PO HS PARoxetine HCL [Paxil] 40 mg PO DAILY Loratadine [Claritin] 10 mg PO DAILY Bisoprolol-Hctz 2.5-6.25 mg [Ziac 2.5-6.25] 1 tab PO DAILY Discharge Medication List Ergocalciferol (Vitamin D2) [Vitamin D2] 50,000 unit PO Q30D 05/11/17 [History] Ibuprofen [Motrin] 800 mg PO TID PRN 05/11/17 [History] Acetaminophen Tab [Tylenol] 650 mg PO Q4HR PRN tab 05/17/17 [Rx] Bisoprolol-Hctz 2.5-6.25 mg [Ziac 2.5-6.25 MG] 1 each PO DAILY tab 05/17/17 [Rx ] Loratadine [Claritin] 10 mg PO DAILY tab 05/17/17 [Rx] Multivitamins, Thera [Multivitamin (formulary)] 1 each PO DAILY@1200 tab [Rx] OLANZapine [ZyPREXA] 10 mg PO HS 30 Days #30 tab 05/17/17 [Rx] Follow up Appointment(s)/Referral(s): Intake, Intake [Other] - 05/19/17 12:00 pm None,Stated [Primary Care Provider] - 1-2 days
[2017-05-18] MEDS ORDERED: LORATADINE 10 MG TAB PO SCH (09:00)
== END 2017-05-17 16:38 | disposition home or self-care (01) | DRG 885 ==
LOC: EC 20:27 → 3MHU 05-12 07:03
PROVIDERS: ADMIT Psychiatry & Neurology Psychiatry; ATTEND Psychiatry & Neurology Psychiatry
DX: F31.89 Other bipolar disorder (principal); F10.20 Alcohol dependence, uncomplicated; T43.212A Poisoning by selective serotonin and norepinephrine reuptake inhibitors, intentional self-harm, initial encounter; R41.82 Altered mental status, unspecified; T51.0X2A Toxic effect of ethanol, intentional self-harm, initial encounter; Y90.7 Blood alcohol level of 200-239 mg/100 ml; G25.81 Restless legs syndrome; G89.29 Other chronic pain; M54.5 Low back pain; I10 Essential (primary) hypertension; J30.9 Allergic rhinitis, unspecified; Z90.49 Acquired absence of other specified parts of digestive tract; Z88.5 Allergy status to narcotic agent; Z98.84 Bariatric surgery status; Z90.710 Acquired absence of both cervix and uterus; Z79.899 Other long term (current) drug therapy; Z83.3 Family history of diabetes mellitus; Z80.7 Family history of other malignant neoplasms of lymphoid, hematopoietic and related tissues; Z80.52 Family history of malignant neoplasm of bladder
CPT/HCPCS: 36415; 80053; 80061; 80306; 80320; 81001; 82075; 83036; 83520; 83605; 83690; 83735; 84100; 84443; 85025; 85610; 87086; 93005; 96361; 96365; 96366; 99285

== ENCOUNTER 2018-10-15 21:21 | Emergency (ER) | payer BC, MEDICAID, OTHER ==
[2018-10-15 21:27] VITALS: TEMP 98
[2018-10-15] MEDS ORDERED: DIPH,PERTUS(ACELL)TETVAC-LF 0.5 ML VIAL IM ONE (21:36)
[2018-10-15 21:55] LABS: Basophils # (A) 0.1 k/uL (0-0.2); Basophils % (A) 1 %; Eosinophils # (A) 0.2 k/uL (0-0.7); Eosinophils % (A) 2 %; HCT 40.1 % (34.0-46.0); HGB 13.5 gm/dL (11.4-16.0); Lymphocytes # (A) 4.3 k/uL (1.0-4.8); Lymphocytes % (A) 40 %; MCH 31.4 pg (25.0-35.0); MCHC 33.7 g/dL (31.0-37.0); Mean Platelet Volume 7.5; Monocytes # (A) 0.3 k/uL (0-1.0); Monocytes % (A) 3 %; Neutrophils # (A) 5.6 k/uL (1.3-7.7); Neutrophils % (A) 53 %; Platelet Count 227 k/uL (150-450); RBC 4.31 m/uL (3.80-5.40); RDW 15.7 % (11.5-15.5); WBC 10.6 k/uL (3.8-10.6)
[2018-10-15] MEDS ORDERED: PROPOFOL 1,000 MG in EMPTY BAG 1 BAG IV ONE (21:55)
[2018-10-15] MEDS ORDERED: ETOMIDATE 2 MG/ML 10 ML VIAL IVP STA (21:55)
[2018-10-15] MEDS ORDERED: ROCURONIUM BROMIDE 10 MG/ML 10 ML VIAL IV STA (21:58)
--- NOTE | 2018-10-15 21:59 | ED ---
Alcohol HPI - General Chief Complaint: Alcohol Stated Complaint: ETOH Time Seen by Provider: 10/15/18 21:30 Source: patient, EMS Mode of arrival: EMS - History of Present Illness Initial Comments: Harika is a 58-year-old female who presents the emergency department today by EMS who were contacted by her neighbor. Apparently they found the patient out front of her home it appeared as though she had fallen down the steps, patient was belligerent and combative with EMS. Patient smelled of alcohol and admitted to drinking heavily today. Patient does state that she is a daily drinker. - Related Data Home Medications Medication Instructions Recorded Confirmed Ergocalciferol (Vitamin D2) 50,000 unit PO Q30D 05/11/17 05/12/17 [Vitamin D2] Ibuprofen [Motrin] 800 mg PO TID PRN 05/11/17 05/12/17 Bisoprolol-Hctz 2.5-6.25 mg [Ziac 2.5 - 6.25 mg PO DAILY 05/17/17 05/17/17 2.5-6.25 MG] Loratadine 10 mg PO DAILY 05/17/17 05/17/17 Previous Rx's Medication Instructions Recorded OLANZapine [ZyPREXA] 10 mg PO HS 30 Days #30 tab 05/17/17 Allergies Allergy/AdvReac Type Severity Reaction Status Date / Time codeine Allergy Unknown Verified 05/12/17 20:35 Sulfa (Sulfonamide Allergy Unknown Verified 05/12/17 20:35 Antibiotics) Review of Systems ROS Statement: Those systems with pertinent positive or pertinent negative responses have been documented in the HPI. ROS Other: All systems not noted in ROS Statement are negative. Past Medical History Past Medical History: Hypertension Additional Past Medical History / Comment(s): gastric by pass in 2001 History of Any Multi-Drug Resistant Organisms: None Reported Past Surgical History: Cholecystectomy Additional Past Surgical History / Comment(s): GASTRIC BYPASS. Past Anesthesia/Blood Transfusion Reactions: No Reported Reaction Past Psychological History: Depression Smoking Status: Current every day smoker Past Alcohol Use History: Heavy Past Drug Use History: None Reported - Past Family History Father Family Medical History: Cancer Additional Family Medical History / Comment(s): both mom and dad of CA and sister has diabetes General Exam - General Exam Comments Initial Comments: Physical Exam GENERAL: Altered, combative, abrasions to the face, bleeding from the left ear canal HENT: Normocephalic Abrasions to the left face Bleeding from the left ear canal, upon exam there appears to be a laceration in the ear canal however the TM cannot be visualized Significant trauma to the left ear with hematoma development EYES: PERRL EOMI PULMONARY: Unlabored respirations CARDIOVASCULAR: RRR ABDOMEN: Soft and nontender with normal bowel sounds. SKIN: Abrasions to face : Deferred NEUROLOGIC: Patient is alert and oriented to self, location, uncertain of events leading up to hospitalization Moving all extremities spontaneously Belligerent, combative, not following commands MUSCULOSKELETAL: Normal extremities with adequate strength and full range of motion. No lower extremity swelling or edema. No calf tenderness. PSYCHIATRIC: Combative Course Vital Signs 10/15/18 21:23 Temperature 98 F Pulse Rate 72 Respiratory 18 Rate Blood Pressure 132/81 O2 Sat by Pulse 96 Oximetry Procedures - Intubation Sedative: Etomidate Mg Given: 20 Paralytic: Rocuronium Mg Given: 50 Laryngoscope: fiber optic video scope Size: 4 ET Tube Size: 7.5 ET Tube Uncuffed: No Tube Secured Depth (cm): 22 Tube Secured Location: teeth Tube Placement Confirmation: visualized tube passing through cords, equal breath sounds bilaterally, no breath sounds over epigastrium, confirmation by capnometry Patient Tolerated Procedure: no complications Medical Decision Making - Medical Decision Making The patient was seen and evaluated, patient is resting but wakes to voice and is noncooperative and belligerent Given the physical exam findings of obvious head trauma in the state of altered mental status patient was taken directly to CT, given that she can provide no meaningful history decision was made to scan her brain and face cervical spine chest abdomen and pelvis Kefzol and Tetanus Vaccine Were Ordered Labs were obtained I accompanied the patient to CT and observed that there was obvious intracranial hemorrhage including intraparenchymal and subdural. Given the patient's altered mental status combative behavior and intracranial bleeding decision was made to intubate the patient. Patient care was discussed with at [facility] who accepts the trauma transfer head trauma with altered mental status and intracranial bleeding The patient was intubated using the kaleidoscope, etomidate and rocuronium. Intubation was non-complicated there is no episodes of hypoxia. After intubation the patient's head of bed was elevated due to intracranial bleeding. NG and Lui catheters were placed. EMS arrived at bedside report was given a patient was transferred. - Lab Data Result diagrams: 10/15/18 21:40 10/15/18 21:40 Lab Results 10/15/18 10/15/18 10/15/18 Range/Units 21:40 21:40 21:40 WBC 10.6 (3.8-10.6) k/uL RBC 4.31 (3.80-5.40) m/uL Hgb 13.5 (11.4-16.0) gm/dL Hct 40.1 (34.0-46.0) % MCV 93.0 (80.0-100.0) fL MCH 31.4 (25.0-35.0) pg MCHC 33.7 (31.0-37.0) g/dL RDW 15.7 H (11.5-15.5) % Plt Count 227 (150-450) k/uL Neutrophils % 53 % Lymphocytes % 40 % Monocytes % 3 % Eosinophils % 2 % Basophils % 1 % Neutrophils # 5.6 (1.3-7.7) k/uL Lymphocytes # 4.3 (1.0-4.8) k/uL Monocytes # 0.3 (0-1.0) k/uL Eosinophils # 0.2 (0-0.7) k/uL Basophils # 0.1 (0-0.2) k/uL PT 9.9 (9.0-12.0) sec INR 0.9 (<1.2) APTT 21.7 L (22.0-30.0) sec Sodium 139 (137-145) mmol/L Potassium 3.9 (3.5-5.1) mmol/L Chloride 104 (98-107) mmol/L Carbon Dioxide 23 (22-30) mmol/L Anion Gap 12 mmol/L BUN 11 (7-17) mg/dL Creatinine 0.51 L (0.52-1.04) mg/dL Est GFR (CKD-EPI)AfAm >90 (>60 ml/min/1.73 sqM) Est GFR (CKD-EPI)NonAf >90 (>60 ml/min/1.73 sqM) Glucose 101 H (74-99) mg/dL Calcium 8.4 (8.4-10.2) mg/dL Total Bilirubin 0.2 (0.2-1.3) mg/dL AST 50 H (14-36) U/L ALT 31 (9-52) U/L Alkaline Phosphatase 113 (38-126) U/L Total Protein 6.3 (6.3-8.2) g/dL Albumin 4.1 (3.5-5.0) g/dL Serum Alcohol 294 H* mg/dL Critical Care Time Critical Care Time: Yes Total Critical Care Time: 45 Critical Care Time: Critical Care Time Critical care time was exclusive of separately billable procedures and treating other patients and teaching time. Critical care was necessary to treat or prevent imminent or life-threatening deterioration. Given the critical condition in which the patient arrived, the patient was immediately assessed by myself and the nurse, and cardiac monitoring initiated due to the potential for rapid decompensation of the patient's clinical condition. During the course of the patients stay, I spent a considerable amount of time at the bedside performing serial re-evaluations of the patient's hemodynamic and clinical status because of the recognized potential threat to life or limb in this condition. I then had a chance to review not only all of the available current laboratory and radiographic studies obtained today, but I also reviewed old records available to me at the time. Additionally, any ancillary information available including hose sprayer records were reviewed. Sequential vital signs were obtained. Disposition Clinical Impression: Alcoholism, Intracranial bleeding, Skull fracture, Altered mental status, Subarachnoid bleed Disposition: OTHER INSTITUTION NOT DEFINED Condition: Critical Referrals: Ajith Coleman MD [Primary Care Provider] - 1-2 days - Out of Hospital Transfer - Req. Specs Out of Hospital Transfer - Requested Specifics: Other Emergency [facility] ([facility]
[2018-10-15 22:07] LABS: ALT 31 U/L (9-52); AST 50 U/L (14-36); African American GFR (CKD) >90 (>60 ml/min/1.73 sqM); Albumin 4.1 g/dL (3.5-5.0); Alkaline Phosphatase 113 U/L (38-126); Anion Gap 12 mmol/L; Blood Urea Nitrogen 11 mg/dL (7-17); Calcium 8.4 mg/dL (8.4-10.2); Carbon Dioxide 23 mmol/L (22-30); Chloride 104 mmol/L (98-107); Glucose 101 mg/dL (74-99); Potassium 3.9 mmol/L (3.5-5.1); Sodium 139 mmol/L (137-145); Total Bilirubin 0.2 mg/dL (0.2-1.3); Total Protein 6.3 g/dL (6.3-8.2)
[2018-10-15 22:10] LABS: Alcohol 294 mg/dL; INR 0.9 (<1.2); Partial Thromboplastin Time 21.7 sec (22.0-30.0); Prothrombin Time 9.9 sec (9.0-12.0)
[2018-10-15] MEDS ORDERED: SODIUM CHLORIDE 0.9% 1,000 ML IV ONE (22:14)
--- NOTE | 2018-10-15 22:24 | CT ---
EXAMINATION TYPE: CT facial bones wo con DATE OF EXAM: 10/15/2018 COMPARISON: 12/23/2012 HISTORY: 58-year-old female pain after trauma. Fall down the stairs, bleeding from the left ear. TECHNIQUE: Contiguous axial scanning of the patient or bones without IV contrast. Coronal reconstruct ions performed. CT DLP: combined DLP 1718.1 mGycm Automated exposure control for dose reduction was used. FINDINGS: Partial opacification left mastoid air cells. The left middle ear ossicles appear relatively aligned. Opacification extends into the left epitympanum and left external auditory canal. Some tiny foci of air present just superficial to the left temporal bone and additional foci of air are present within the left temporal mandibular joint tracking down the parapharyngeal/supervisor concrete stone fabricating space. The TMJs appear to be intact. No well-defined fracture lucency is identified on the left temporal bone. Orbits and globes appear intact Large bilateral superior ophthalmic veins. Trace foci of air in the right cavernous sinus. Mandible, nasal bones, facial bones, orbits and globes appear intact. IMPRESSION: 1. HEMORRHAGIC DEBRIS WITHIN THE LEFT EXTERNAL AUDITORY CANAL. PARTIAL OPACIFICATION/HEMORRHAGE LEFT MASTOID AIR CELLS AND LEFT EPITYMPANUM. NO OBVIOUS TRANSVERSE OR LONGITUDINAL TEMPORAL BONE FRACTURE IS SEEN. THE MIDDLE EAR OSSICLES APPEAR APPROPRIATELY ALIGNED. 2. GIVEN THE PRESENCE OF AIR TRACKING AT THE LEFT TMJ, LEFT PARAPHARYNGEAL AND LEFT FORM PRESSER SPACE, A SUBTLE NONDISPLACED FRACTURE COMMUNICATING WITH THE MIDDLE EAR CAVITY OR MASTOID AIR CELLS IS SUSP ECTED. 3. NO ADDITIONAL ACUTE FACIAL BONE FRACTURE SEEN. 4. ENLARGEMENT OF THE BILATERAL SUPERIOR OPHTHALMIC VEINS IS NONSPECIFIC BUT CAN BE SEEN IN THE SETTI NG OF ELEVATED INTRACRANIAL PRESSURES. FOLLOW-UP AFTER MANAGEMENT OF PATIENT'S ACUTE PRESENTATION TO ENSURE RETURN TO NORMAL CALIBER. FURTHER ANGIOGRAPHIC ASSESSMENT MAY BE INDICATED IF THE FINDING PERS ISTS. 5. TRACE AIR IN THE RIGHT CAVERNOUS SINUS COULD BE FROM AIR INTRODUCED DURING IV PLACEMENT. Findings called to Dr. Mena in the ER at 10:20 PM.
[2018-10-15 22:25] VITALS: BP 154/85; PULSE 74; RESP 20
--- NOTE | 2018-10-15 22:25 | CT ---
EXAMINATION TYPE: CT brain morenita wo con DATE OF EXAM: 10/15/2018 COMPARISON: 12/23/2012 HISTORY: 58-year-old female with pain after trauma CT DLP: combined DLP 1718.1 mGycm Automated exposure control for dose reduction was used. Technique: Examination of the head was done in axial plane without intravenous contrast. Coronal and sagittal reconstructions performed. CT of the cervical spine was obtained in axial plane without intravenous injection of contrast mater ial. Coronal and sagittal reformatted images were obtained from the axial views for evaluation of f ractures, spinal alignment and canal. FINDINGS: Head: There is subarachnoid hemorrhage along the right lateral frontal and temporal convexity. Minimal piyush tional scattered subarachnoid hemorrhage along the left sylvian fissure. Additional acute hemorrhage within the left ventricle. Possible tiny cortical contusion left lateral temporal lobe. There is thin acute subdural hematoma measuring up to 6 mm along the mid and posterior falx. Minimal additional subarachnoid blood median left posterior frontal lobe, axial image 51. Also, along the floor of the right anterior cranial fossa. No effacement of basal subarachnoid cisterns. No midline shift or hydrocephalus. Graham-white matter di fferentiation is maintained. Cervical spine: No craniocervical junction abnormality, predental space widening, or prevertebral soft tissue swellin g. Preserved alignment of the cervical spine. Prior ACDF at C4-C5. Moderate degenerative disc disease below the fusion at C5-C6 with disc osteophyt e complex which may contribute to mild canal narrowing. Sagittal and coronal reformatted images confirm above findings. COMBINED IMPRESSION: 1. Sites of acute intracranial hemorrhage with scattered subarachnoid blood, greatest along the later al right frontal and temporal convexity. Intraventricular hemorrhage on the left. 6 mm thick posterio r subdural hematoma along the falx. Some additional scattered scant subarachnoid blood also noted. 2. No midline shift, herniation, or hydrocephalus. 3. No acute fracture or malalignment of the cervical spine. Prior C4-C5 ACDF. 4. Facial and temporal bones reported separately. Findings called to Dr. Mena in the ER at 10:20 PM.
--- NOTE | 2018-10-15 22:25 | CT ---
History: ITS.REASON CT Reason: Trauma, fell down stairs Exam: CT CHEST With Contrast Technique more: CTDI is 15.97 mGy and DLP is 1181.2 mGy-cm. Technique more: This CT exam was performed using one or more of the following dose reduction techniques: automated exposure control, adjustment of the mA and/or kV according to patient size, and/or use of iterative reconstruction technique. Comparison: None available FINDINGS: Thoracic aorta within limits. No pericardial or pleural effusion. The central airways appear patent. Patchy areas of dependent basilar atelectasis. No pneumothorax. Question possible nondisplaced acute anterolateral left fourth rib fracture axial 28 series 404. Nonacute right fifth anterolateral rib fracture with callus formation. IMPRESSION: Patchy areas of dependent basilar atelectasis. Question possible nondisplaced acute anterolateral left fourth rib fracture axial 28 series 404. Exam: CT ABDOMEN + PELVIS With Contrast Technique more: CTDI is 15.97 mGy and DLP is 1181.2 mGy-cm. Technique more: This CT exam was performed using one or more of the following dose reduction techniques: automated exposure control, adjustment of the mA and/or kV according to patient size, and/or use of iterative reconstruction technique. Comparison: None available FINDINGS: Status post gastric bypass surgery and cholecystectomy. Abdominal solid organs and abdominal aorta appear intact. No bowel dilation or free air. Multiple small ventral hernias with one containing a small portion of the transverse colon without associated obstructive change. Normal caliber appendix without secondary signs. The bladder appears within limits. No free fluid. No acute fracture identified. Nonacute appearing superior endplate compression deformities T12 and L1. Spondylosis/discogenic change appears greatest at L3-4 with bilateral foraminal stenosis. IMPRESSION: No evidence of acute intra-abdominal traumatic injury.
--- NOTE | 2018-10-15 22:27 | XR ---
EXAMINATION TYPE: XR chest 1V portable DATE OF EXAM: 10/15/2018 Comparison: None Clinical History: 58-year-old female pain after trauma Findings: Hypoventilatory changes with cardiac vascular markings. Mild patchy interstitial densities are presen t on the right. Heart upper limits of normal in size. Some bulbous prominence to the proximal right h umerus. Impression: Patchy interstitial changes, right greater than left. Findings could reflect hypoventilatory changes or mild scattered pulmonary contusions. Follow-up high quality PA and lateral views when patient able . Bulbous prominence proximal right humeral shaft could represent old healed fracture deformity. This i s only partially visualized.
--- NOTE | 2018-10-15 22:28 | XR ---
EXAMINATION TYPE: XR pelvis AP view DATE OF EXAM: 10/15/2018 COMPARISON: NONE HISTORY: 58-year-old female pain after TECHNIQUE: AP view FINDINGS: Limited assessment of the lower femoral neck regions due to external rotation of the hips. Degenerative changes lower lumbar spine. No displaced fracture seen. Limitation due to large body hab itus. IMPRESSION: Limitations due to large patient body habitus and external rotation of the hips. No displaced fractur e seen.
== END 2018-10-15 22:56 | disposition other institution (70) ==
LOC: EC 21:21
DX: S02.91XA Unspecified fracture of skull, initial encounter for closed fracture (principal); S06.6X0A Traumatic subarachnoid hemorrhage without loss of consciousness, initial encounter; S06.5X0A Traumatic subdural hemorrhage without loss of consciousness, initial encounter; S00.432A Contusion of left ear, initial encounter; S00.81XA Abrasion of other part of head, initial encounter; I10 Essential (primary) hypertension; F17.200 Nicotine dependence, unspecified, uncomplicated; Z79.899 Other long term (current) drug therapy; Z88.5 Allergy status to narcotic agent; Z88.2 Allergy status to sulfonamides; Z23 Encounter for immunization; Y92.89 Other specified places as the place of occurrence of the external cause
CPT/HCPCS: 99291; 31500; 96365; 90471; 36415; 86900; 86901; 80053; 84484; 85025; 85610; 85730; 86850; 80320; 72170; 71045; 72125; 70486; 70450; 71260; 74177; 90715; J0690; J2704; Q9967; 94002

== ENCOUNTER 2018-10-25 13:48 | Emergency (ER) | payer BC ==
[2018-10-25 13:59] VITALS: TEMP 98.2
[2018-10-25] MEDS ORDERED: ONDANSETRON 4 MG/2 ML VIAL IVP STA (14:27)
[2018-10-25] MEDS ORDERED: HYDROmorphone 0.5 MG/0.5 ML SYRINGE IVP STA (14:28)
--- NOTE | 2018-10-25 15:14 | ED ---
General Adult HPI - General Chief complaint: Headache Stated complaint: HEADACHE Time Seen by Provider: 10/25/18 15:13 Source: patient, EMS, RN notes reviewed Mode of arrival: EMS Limitations: no limitations - History of Present Illness Initial comments: This is a 58-year-old female who recently was diagnosed with subarachnoid hemorrhage since transferred to [facility]. Patient was discharged from the hospital yesterday and she comes in today because her headache is worse and she is nauseous and vomiting. Patient denies any additional trauma. Patient does have a history of alcoholism. Patient denies any numbness weakness visual disturbance or any speech disturbance. Patient denies any chest pain palpitations difficulty breathing shortness of breath per patient denies any lightheadedness or dizziness. - Related Data Home Medications Medication Instructions Recorded Confirmed Bisoprolol-Hctz 2.5-6.25 mg [Ziac 1 mg PO DAILY 05/17/17 10/25/18 2.5-6.25 MG] Acetaminophen Tab [Tylenol Tab] 650 mg PO Q4H PRN 10/25/18 10/25/18 Multivitamins, Thera [Multivitamin 1 tab PO BID 10/25/18 10/25/18 (formulary)] PARoxetine HCL [Paxil] 40 mg PO DAILY 10/25/18 10/25/18 Vitamin B Complex 1 cap PO BID 10/25/18 10/25/18 Allergies Allergy/AdvReac Type Severity Reaction Status Date / Time codeine Allergy Unknown Verified 10/25/18 14:02 shellfish derived [Shrimp] Allergy Unknown Verified 10/25/18 14:02 Sulfa (Sulfonamide Allergy Unknown Verified 10/25/18 14:02 Antibiotics) Review of Systems ROS Statement: Those systems with pertinent positive or pertinent negative responses have been documented in the HPI. ROS Other: All systems not noted in ROS Statement are negative. Past Medical History Past Medical History: Hypertension Additional Past Medical History / Comment(s): gastric by pass in 2001 History of Any Multi-Drug Resistant Organisms: None Reported Past Surgical History: Cholecystectomy Additional Past Surgical History / Comment(s): GASTRIC BYPASS. Past Anesthesia/Blood Transfusion Reactions: No Reported Reaction Past Psychological History: Depression Smoking Status: Former smoker Past Alcohol Use History: None Reported, Heavy Past Drug Use History: None Reported - Past Family History Father Family Medical History: Cancer Additional Family Medical History / Comment(s): both mom and dad of CA and sister has diabetes General Exam - General Exam Comments Initial Comments: GENERAL: Patient is well-developed and well-nourished. Patient is nontoxic and well- hydrated and is in mild distress. ENT: Neck is soft and supple. No significant lymphadenopathy is noted. Oropharynx is clear. Moist mucous membranes. Neck has full range of motion without eliciting any pain. EYES: The sclera were anicteric and conjunctiva were pink and moist. Extraocular movements were intact and pupils were equal round and reactive to light. Eyelids were unremarkable. PULMONARY: Unlabored respirations. Good breath sounds bilaterally. No audible rales rhonchi or wheezing was noted. CARDIOVASCULAR: There is a regular rate and rhythm without any murmurs gallops or rubs. ABDOMEN: Soft and nontender with normal bowel sounds. SKIN: Skin is clear with no lesions or rashes and otherwise unremarkable. NEUROLOGIC: Patient is alert and oriented x3. Cranial nerves II through XII are grossly intact. Motor and sensory are also intact. Normal speech, volume and content. Symmetrical smile. MUSCULOSKELETAL: Normal extremities with adequate strength and full range of motion. LYMPHATICS: No significant lymphadenopathy is noted PSYCHIATRIC: Normal psychiatric evaluation. Limitations: no limitations Course Vital Signs 10/25/18 13:56 Temperature 98.2 F Pulse Rate 65 Respiratory 18 Rate Blood Pressure 158/65 O2 Sat by Pulse 97 Oximetry Medical Decision Making - Medical Decision Making CT of the brain shows in addition to the subarachnoid hemorrhage a intraparenchymal hemorrhage which was not seen before on the previous trauma there is midline shift of 9 mm. I will back into reevaluate the patient the patient's nausea had dissipated after Zofran. Patient also got pain medicine and she was feeling considerably better. [facility] and they accepted the patient I transfer the patient to their facility. Also received Decadron and Keppra Critical Care Time Critical Care Time: Yes Total Critical Care Time: 35 Disposition Clinical Impression: Intraparenchymal hemorrhage of brain Disposition: OTHER INSTITUTION NOT DEFINED Referrals: Ajith Coleman MD [Primary Care Provider] - 1-2 days Time of Disposition: 15:33 - Out of Hospital Transfer - Req. Specs Out of Hospital Transfer - Requested Specifics: Other Emergency Center ([facility])
[2018-10-25] MEDS ORDERED: levETIRAcetam IV 1,000 MG in SALINE 1 100ML.BAG IVPB STA (15:15)
[2018-10-25] MEDS ORDERED: DEXAMETHASONE SOD PHOSPHATE 10 MG/ML 1 ML VIAL IV STA (15:16)
--- NOTE | 2018-10-25 15:26 | CT ---
EXAMINATION TYPE: CT brain wo con DATE OF EXAM: 10/25/2018 COMPARISON: 10/15/2018 HISTORY: 58-year-old female Headache. History of subarachnoid hemorrhage . TECHNIQUE: Examination was done in axial plane without intravenous contrast. Coronal and sagittal r econstructions performed. CT DLP: 1099.4 mGycm Automated exposure control for dose reduction was used. FINDINGS: Previous subarachnoid hemorrhage along the right lateral convexity may be more subacute now is not we ll-seen. However, there is acute intraparenchymal hematoma along the right frontotemporal junction me asuring 3.7 x 2.9 cm with surrounding vasogenic edema. There is sulcal effacement throughout the righ t cerebral hemisphere secondary to mass effect and 9 mm of leftward midline shift. Subfalcine herniat ion and early right-sided uncal herniation, axial image 14 is noted. Mass effect partially effaces th e right lateral ventricle. No effacement of the suprasellar cistern at this time. The previously seen intraventricular hemorrhage on the left appears to have cleared. Relatively similar 6 mm thick subdural hematoma along the posterior falx. IMPRESSION: 1. Acute intraparenchymal hematoma measuring 3.7 x 2.9 cm with extensive surrounding vasogenic edema resulting in partial effacement of the right lateral ventricle and 9 mm of leftward midline shift. 2. Mild subfalcine herniation and early medial uncal herniation. 3. Previously seen right-sided subarachnoid hemorrhage has either resolved or is now subacute and dif ficult to visualize on CT. Previous intraventricular blood on the left has resolved. 4. Similar 6 mm thick acute subdural hematoma along the posterior falx. Critical findings called to Dr. Mcgee in the ER at 3:20 PM.
[2018-10-25] MEDS ORDERED: hydrALAZINE HCL 20 MG/ML 1 ML VIAL IVP STA (15:33)
[2018-10-25 16:00] LABS: Basophils % (A) 1 %; Eosinophils # (A) 0.1 k/uL (0-0.7); Eosinophils % (A) 2 %; HCT 37.7 % (34.0-46.0); HGB 12.5 gm/dL (11.4-16.0); Lymphocytes # (A) 1.4 k/uL (1.0-4.8); Lymphocytes % (A) 18 %; MCH 31.2 pg (25.0-35.0); MCHC 33.2 g/dL (31.0-37.0); Mean Platelet Volume 7.5; Monocytes # (A) 0.5 k/uL (0-1.0); Monocytes % (A) 7 %; Neutrophils # (A) 5.6 k/uL (1.3-7.7); Neutrophils % (A) 72 %; Platelet Count 293 k/uL (150-450); RBC 4.01 m/uL (3.80-5.40); RDW 15.4 % (11.5-15.5); WBC 7.8 k/uL (3.8-10.6)
[2018-10-25 16:11] LABS: ALT 28 U/L (9-52); AST 40 U/L (14-36); African American GFR (CKD) >90 (>60 ml/min/1.73 sqM); Albumin 4.1 g/dL (3.5-5.0); Alkaline Phosphatase 147 U/L (38-126); Anion Gap 10 mmol/L; Blood Urea Nitrogen 8 mg/dL (7-17); Calcium 9.1 mg/dL (8.4-10.2); Carbon Dioxide 25 mmol/L (22-30); Chloride 95 mmol/L (98-107); Glucose 118 mg/dL (74-99); Sodium 130 mmol/L (137-145); Total Bilirubin 0.5 mg/dL (0.2-1.3); Total Protein 6.7 g/dL (6.3-8.2)
[2018-10-25 16:12] VITALS: BP 150/81; PULSE 66; RESP 20
[2018-10-25 16:28] LABS: INR 0.9 (<1.2); Partial Thromboplastin Time 22.9 sec (22.0-30.0); Prothrombin Time 10.1 sec (9.0-12.0)
== END 2018-10-25 16:11 | disposition other institution (70) ==
LOC: EC 13:48
DX: I61.9 Nontraumatic intracerebral hemorrhage, unspecified (principal); I10 Essential (primary) hypertension; F32.9 Major depressive disorder, single episode, unspecified; F10.21 Alcohol dependence, in remission; Z79.899 Other long term (current) drug therapy; Z88.2 Allergy status to sulfonamides; Z88.5 Allergy status to narcotic agent; Z91.013 Allergy to seafood; Z87.891 Personal history of nicotine dependence
CPT/HCPCS: 36415; 80053; 85025; 85610; 85730; 70450; 99291; 96374; 96375 ×4; J0360; J1100; J2405; J1953; J1170

== ENCOUNTER 2018-11-05 17:14 | Emergency (ER) | payer BC ==
[2018-11-05] MEDS ORDERED: SODIUM CHLORIDE 0.9% 1,000 ML IV STA (17:38)
--- NOTE | 2018-11-05 17:49 | ED ---
Altered Mental Status HPI - General Chief Complaint: Headache Stated Complaint: Headache Time Seen by Provider: 11/05/18 17:36 Source: patient, RN notes reviewed, old records reviewed Mode of arrival: ambulatory Limitations: no limitations - History of Present Illness Initial Comments: This is a 58-year-old female the ER for evaluation. Patient very with worsening altered mental status, inability to remember acute new and old events. Patient denies any recent history of trauma. Patient had a fall about a month ago was diagnosed with renal hemorrhage, had a repeat evaluation here in the ER with worsening bleeding. Patient was discharged from [facility] both times. She was stable but her mental status is significantly worsening she complains of headache and inability to function. Patient's very emotional during questioning. Denies recent traumatic injury fevers. No recent change in medications. MD Complaint: altered mental status, confusion -: month(s) (1) Consistency of Symptoms: waxing and waning, getting worse Context: alcohol abuse, history of similar presentation Associated Symptoms: headaches, weakness, other (Altered mental status) - Related Data Home Medications Medication Instructions Recorded Confirmed Bisoprolol-Hctz 2.5-6.25 mg [Ziac 1 tab PO DAILY 05/17/17 11/05/18 2.5-6.25 MG] Acetaminophen Tab [Tylenol Tab] 650 mg PO Q4H PRN 10/25/18 11/05/18 Multivitamins, Thera [Multivitamin 2 tab PO DAILY 10/25/18 11/05/18 (formulary)] Vitamin B Complex 2 cap PO DAILY 10/25/18 11/05/18 HYDROcodone/APAP 5-325MG [Haddock 1 tab PO Q4-6H PRN 11/05/18 11/05/18 5-325] PARoxetine [Paxil] 20 mg PO DAILY 11/05/18 11/05/18 Sodium Chloride Tab 1 gm PO BID 11/05/18 11/05/18 levETIRAcetam [Keppra] 500 mg PO BID 11/05/18 11/05/18 Allergies Allergy/AdvReac Type Severity Reaction Status Date / Time codeine Allergy Unknown Verified 11/05/18 18:21 shellfish derived [Shrimp] Allergy Unknown Verified 11/05/18 18:21 Sulfa (Sulfonamide Allergy Unknown Verified 11/05/18 18:21 Antibiotics) Review of Systems ROS Statement: Those systems with pertinent positive or pertinent negative responses have been documented in the HPI. ROS Other: All systems not noted in ROS Statement are negative. Past Medical History Past Medical History: Hypertension Additional Past Medical History / Comment(s): gastric by pass in 2001 History of Any Multi-Drug Resistant Organisms: None Reported Past Surgical History: Cholecystectomy Additional Past Surgical History / Comment(s): GASTRIC BYPASS. Past Anesthesia/Blood Transfusion Reactions: No Reported Reaction Past Psychological History: Depression Smoking Status: Former smoker Past Alcohol Use History: None Reported, Heavy Past Drug Use History: None Reported - Past Family History Father Family Medical History: Cancer Additional Family Medical History / Comment(s): both mom and dad of CA and sister has diabetes General Exam Limitations: no limitations General appearance: alert, in no apparent distress Head exam: Present: atraumatic, normocephalic, normal inspection Eye exam: Present: normal appearance, PERRL, EOMI. Absent: scleral icterus, conjunctival injection, periorbital swelling ENT exam: Present: normal exam, mucous membranes moist Neck exam: Present: normal inspection. Absent: tenderness, meningismus, lymphadenopathy Respiratory exam: Present: normal lung sounds bilaterally. Absent: respiratory distress, wheezes, rales, rhonchi, stridor Cardiovascular Exam: Present: regular rate, normal rhythm, normal heart sounds. Absent: systolic murmur, diastolic murmur, rubs, gallop, clicks GI/Abdominal exam: Present: soft, normal bowel sounds. Absent: distended, tenderness, guarding, rebound, rigid Extremities exam: Present: normal inspection, full ROM, normal capillary refill. Absent: tenderness, pedal edema, joint swelling, calf tenderness Back exam: Present: normal inspection Neurological exam: Present: alert, oriented X3, CN II-XII intact Psychiatric exam: Present: normal affect, normal mood Skin exam: Present: warm, dry, intact, normal color. Absent: rash Course Vital Signs 11/05/18 17:33 Temperature 98.7 F Pulse Rate 100 Respiratory 16 Rate Blood Pressure 102/76 O2 Sat by Pulse 97 Oximetry - Reevaluation(s) Reevaluation #1: 11/05/18 17:58 From both prior ER visits resulting in transfer secondary to intracranial hemorrhage or reviewed Reevaluation #2: 11/05/18 19:24 patient very emotional, over living status, job status. Medical Decision Making - Medical Decision Making 58 female to the ED co sotelo and some depression worried about recent history of SOTELO, SAH, inability to sleep and deression over possible job loss, asking for medical records. - Lab Data Result diagrams: 11/05/18 18:00 11/05/18 18:00 Lab Results 11/05/18 11/05/18 Range/Units 18:00 18:00 WBC 6.7 (3.8-10.6) k/uL RBC 4.40 (3.80-5.40) m/uL Hgb 14.0 (11.4-16.0) gm/dL Hct 40.9 (34.0-46.0) % MCV 93.0 (80.0-100.0) fL MCH 31.9 (25.0-35.0) pg MCHC 34.3 (31.0-37.0) g/dL RDW 14.0 (11.5-15.5) % Plt Count 309 (150-450) k/uL Neutrophils % 54 % Lymphocytes % 35 % Monocytes % 5 % Eosinophils % 3 % Basophils % 1 % Neutrophils # 3.6 (1.3-7.7) k/uL Lymphocytes # 2.3 (1.0-4.8) k/uL Monocytes # 0.3 (0-1.0) k/uL Eosinophils # 0.2 (0-0.7) k/uL Basophils # 0.1 (0-0.2) k/uL Sodium 133 L (137-145) mmol/L Potassium 3.8 (3.5-5.1) mmol/L Chloride 96 L (98-107) mmol/L Carbon Dioxide 28 (22-30) mmol/L Anion Gap 9 mmol/L BUN 7 (7-17) mg/dL Creatinine 0.53 (0.52-1.04) mg/dL Est GFR (CKD-EPI)AfAm >90 (>60 ml/min/1.73 sqM) Est GFR (CKD-EPI)NonAf >90 (>60 ml/min/1.73 sqM) Glucose 101 H (74-99) mg/dL Calcium 9.4 (8.4-10.2) mg/dL Phosphorus 4.1 (2.5-4.5) mg/dL Magnesium 1.9 (1.6-2.3) mg/dL Total Bilirubin 0.3 (0.2-1.3) mg/dL AST 47 H (14-36) U/L ALT 34 (9-52) U/L Alkaline Phosphatase 144 H (38-126) U/L Total Protein 6.5 (6.3-8.2) g/dL Albumin 4.0 (3.5-5.0) g/dL Lipase 75 (23-300) U/L Serum Alcohol <10 mg/dL - Radiology Data Radiology results: report reviewed (CT brain is improved from prior), image reviewed Disposition Clinical Impression: Depression, Headache Disposition: HOME SELF-CARE Condition: Good Instructions (If sedation given, give patient instructions): Depression (ED), Acute Headache (ED) Is patient prescribed a controlled substance at d/c from ED?: No Referrals: Ajith Coleman MD [Primary Care Provider] - 1-2 days
--- NOTE | 2018-11-05 18:16 | CT ---
EXAMINATION TYPE: CT brain wo con DATE OF EXAM: 11/05/2018 COMPARISON: 10/25/2018 HISTORY: PT c/o headache. Was here 10/25/[address] DLP: 1145.4 mGycm Automated exposure control for dose reduction was used. FINDINGS: There is mixed attenuation in the right temporal lobe consistent with old hemorrhagic temporal lobe i nfarct. There is very slight shift of the third ventricle to the left side. There is some linear hypo density in the right parietal lobe meza-white matter. IMPRESSION: SUBACUTE RIGHT TEMPORAL LOBE HEMORRHAGIC INFARCT WITHOUT INCREASE IN SIZE COMPARED TO LAST CT SCAN. T HERE IS CLEARING OF THE HEMORRHAGE ALONG THE POSTERIOR INTERHEMISPHERIC FISSURE COMPARED TO OLD EXAM. NO EVIDENCE OF ANY NEW HEMORRHAGE. THERE IS DECREASED MASS EFFECT COMPARED TO OLD EXAM.
[2018-11-05 18:22] LABS: Basophils # (A) 0.1 k/uL (0-0.2); Basophils % (A) 1 %; Eosinophils # (A) 0.2 k/uL (0-0.7); Eosinophils % (A) 3 %; HCT 40.9 % (34.0-46.0); Lymphocytes # (A) 2.3 k/uL (1.0-4.8); Lymphocytes % (A) 35 %; MCH 31.9 pg (25.0-35.0); MCHC 34.3 g/dL (31.0-37.0); Mean Platelet Volume 6.7; Monocytes # (A) 0.3 k/uL (0-1.0); Monocytes % (A) 5 %; Neutrophils # (A) 3.6 k/uL (1.3-7.7); Neutrophils % (A) 54 %; Platelet Count 309 k/uL (150-450); WBC 6.7 k/uL (3.8-10.6)
[2018-11-05 18:36] LABS: ALT 34 U/L (9-52); AST 47 U/L (14-36); African American GFR (CKD) >90 (>60 ml/min/1.73 sqM); Alcohol <10 mg/dL; Alkaline Phosphatase 144 U/L (38-126); Anion Gap 9 mmol/L; Blood Urea Nitrogen 7 mg/dL (7-17); Calcium 9.4 mg/dL (8.4-10.2); Carbon Dioxide 28 mmol/L (22-30); Chloride 96 mmol/L (98-107); Glucose 101 mg/dL (74-99); Magnesium 1.9 mg/dL (1.6-2.3); Phosphorus 4.1 mg/dL (2.5-4.5); Potassium 3.8 mmol/L (3.5-5.1); Sodium 133 mmol/L (137-145); Total Bilirubin 0.3 mg/dL (0.2-1.3); Total Protein 6.5 g/dL (6.3-8.2)
[2018-11-05 19:30] VITALS: RESP 18; TEMP 98.8
[2018-11-05] MEDS ORDERED: DIAZEPAM 5 MG TAB PO STA (20:06)
[2018-11-05 20:10] VITALS: BP 136/93; PULSE 70
== END 2018-11-05 20:10 | disposition home or self-care (01) ==
LOC: EC 17:14
DX: R51 Headache (principal); F32.9 Major depressive disorder, single episode, unspecified; R53.1 Weakness; R41.82 Altered mental status, unspecified; I10 Essential (primary) hypertension; Z86.69 Personal history of other diseases of the nervous system and sense organs; Z90.49 Acquired absence of other specified parts of digestive tract; Z98.84 Bariatric surgery status; Z79.899 Other long term (current) drug therapy; Z88.2 Allergy status to sulfonamides; Z88.5 Allergy status to narcotic agent; Z91.013 Allergy to seafood
CPT/HCPCS: 36415; 70450; 80053; 80320; 83690; 83735; 84100; 85025; 96360; 99284

== ENCOUNTER → 2018-11-27 | Outpatient (CLI) | payer BC ==
--- NOTE | 2018-11-27 14:55 | CT ---
EXAMINATION TYPE: CT brain wo con DATE OF EXAM: 11/27/2018 COMPARISON: 11/05/2018 INDICATION: Hx of bleed after fall injury DLP: 1106 mGycm, Automated exposure control for dose reduction was used. CONTRAST: None CT of the brain is performed utilizing 3 mm thick sections through the posterior fossa and 3 mm thick sections through the remaining calvarium. Study is performed within 24 hours of arrival to the hosp ital. There are changes compatible with the subacute hemorrhage which is maturing normally within the right proximal temporal lobe. No new interval hemorrhage is evident. No increasing mass effect is evident. No mass lesion is evident. No acute infarcts are evident. Ventricles and sulci are appropriate for the patient age. Paranasal sinuses and mastoid air cells within the [id number] are clear. IMPRESSIONS: 1. Maturing proximal right temporal lobe intraparenchymal hemorrhage with adjacent edema. This is m aturing normally.
== END | disposition home or self-care (01) ==
LOC: RADCTMAIN 14:28
PROVIDERS: ATTEND Neurological Surgery
DX: I61.8 Other nontraumatic intracerebral hemorrhage (principal)
CPT/HCPCS: 70450

== ENCOUNTER 2019-03-03 14:47 | Inpatient (IN) | payer BC, MEDICAID, OTHER ==
[2019-03-03] MEDS ORDERED: SODIUM CHLORIDE 0.9% 1,000 ML IV ONE (15:05)
[2019-03-03] MEDS ORDERED: SODIUM CHLORIDE 0.9% 1,000 ML with MVI, ADULT NO.4 WITH VIT K 10 ML, THIAMINE 100 MG, F... IV ONE ×4 (15:06)
[2019-03-03] MEDS ORDERED: ONDANSETRON 4 MG/2 ML VIAL IVP STA (15:06)
--- NOTE | 2019-03-03 15:12 | ED ---
General Adult HPI - General Source: patient, EMS, RN notes reviewed, old records reviewed Mode of arrival: EMS Limitations: no limitations <Caleb Mcgee - Last Filed: 03/03/19 16:47> <Silvio Cr - Last Filed: 03/05/19 18:34> - General Chief complaint: Psychiatric Symptoms Stated complaint: mental health Time Seen by Provider: 03/03/19 14:50 - History of Present Illness Initial comments: This a 58-year-old female presents emergency Department stating she's been drinking heavily and she has not drank since . Patient states she is at the point where she thinks maybe she be better off and considers drinking herself to so she decided come and get some help because she does have a couple of adult children and if she can get some help she would like it. Patient states she has made an appointment with [facility] on . Denies any drug use. Patient denies any other attempt to harm herself. Patient states again she hasn't drank since and she hasn't eaten except for her and ensure since then and she is very nauseated and has the dry heaves. Patient denies any recent fever chills per patient denies any chest pain difficulty breathing first breath per patient denies any lightheadedness or dizziness. Patient denies any abdominal pain. Patient denies any diarrhea. (Caleb Mcgee) - Related Data Home Medications Medication Instructions Recorded Confirmed Bisoprolol-Hctz 2.5-6.25 mg [Ziac 1 tab PO DAILY 05/17/17 03/03/19 2.5-6.25 MG] Acetaminophen Tab [Tylenol Tab] 650 mg PO Q4H PRN 10/25/18 03/03/19 Multivitamins, Thera [Multivitamin 2 tab PO DAILY 10/25/18 03/03/19 (formulary)] Vitamin B Complex 2 cap PO DAILY 10/25/18 03/03/19 Ibuprofen [Motrin] 800 mg PO AC-TID PRN 03/03/19 03/03/19 traZODone HCL [Desyrel] 100 mg PO HS 03/03/19 03/03/19 Allergies Allergy/AdvReac Type Severity Reaction Status Date / Time bisoprolol [From Ziac] Allergy Severe Anaphylaxis Verified 03/05/19 17:53 hydrochlorothiazide Allergy Severe Anaphylaxis Verified 03/05/19 17:53 [From Ziac] codeine Allergy Unknown Verified 03/05/19 17:53 Latex, Natural Rubber Allergy Rash/Hives Verified 03/05/19 17:53 shellfish derived [Shrimp] Allergy Unknown Verified 03/05/19 17:53 Sulfa (Sulfonamide Allergy Unknown Verified 03/05/19 17:53 Antibiotics) Review of Systems ROS Other: All systems not noted in ROS Statement are negative. <Caleb Mcgee - Last Filed: 03/03/19 16:47> ROS Other: All systems not noted in ROS Statement are negative. <Silvio Cr - Last Filed: 03/05/19 18:34> ROS Statement: Those systems with pertinent positive or pertinent negative responses have been documented in the HPI. Past Medical History Past Medical History: Hypertension Additional Past Medical History / Comment(s): gastric by pass in 2001 History of Any Multi-Drug Resistant Organisms: None Reported Past Surgical History: Cholecystectomy Additional Past Surgical History / Comment(s): GASTRIC BYPASS. Past Anesthesia/Blood Transfusion Reactions: No Reported Reaction Past Psychological History: Bipolar, Depression Smoking Status: Former smoker Past Alcohol Use History: Heavy Past Drug Use History: None Reported - Past Family History Father Family Medical History: Cancer Additional Family Medical History / Comment(s): both mom and dad of CA and sister has diabetes <Caleb Mcgee - Last Filed: 03/03/19 16:47> General Exam Limitations: no limitations <Caleb Mcgee - Last Filed: 03/03/19 16:47> - General Exam Comments Initial Comments: GENERAL: Patient is well-developed and well-nourished. Patient is nontoxic and well-h ydrated and is in mild distress. ENT: Neck is soft and supple. No significant lymphadenopathy is noted. Oropharynx is clear. Moist mucous membranes. Neck has full range of motion without eliciting any pain. EYES: The sclera were anicteric and conjunctiva were pink and moist. Extraocular move ments were intact and pupils were equal round and reactive to light. Eyelids were unremarkable. PULMONARY: Unlabored respirations. Good breath sounds bilaterally. No audible rales rhonchi or wheezing was noted. CARDIOVASCULAR: There is a regular rate and rhythm without any murmurs gallops or rubs. ABDOMEN: Soft and nontender with normal bowel sounds. No palpable organomegaly was noted. There is no palpable pulsatile mass. SKIN: Skin is clear with no lesions or rashes and otherwise unremarkable. NEUROLOGIC: Patient is alert and oriented x3. Cranial nerves II through XII are grossly intact. Motor and sensory are also intact. Normal speech, volume and content. Symmetrical smile. MUSCULOSKELETAL: Normal extremities with adequate strength and full range of motion. LYMPHATICS: No significant lymphadenopathy is noted PSYCHIATRIC: Patient is very depressed and states she does contemplate suicide. Patient states she has not made any attempt (Caleb Mcgee) Course Vital Signs 03/03/19 03/03/19 03/03/19 14:52 15:03 16:03 Temperature 98.2 F Pulse Rate 87 Respiratory 20 20 20 Rate Blood Pressure 141/95 O2 Sat by Pulse 98 Oximetry Medical Decision Making - Lab Data Result diagrams: 03/03/19 16:03 03/03/19 15:27 <Caleb Mcgee - Last Filed: 03/03/19 16:47> - Lab Data Result diagrams: 03/04/19 08:15 03/05/19 07:26 <Silvio Cr - Last Filed: 03/05/19 18:34> - Medical Decision Making The care of this patient will be taking over by Dr. Cr at 5 PM (Rohan Mcgee) Patient care was signed out to me by previous physician Dr. Mcgee. Briefly, dianna veloz is a 58-year-old female who presents with suicidal ideation. She has long history of alcohol abuse. According to signing out physician patient does not appear to be having any withdrawal type symptoms. Her labs shows normal CBC. She does have metabolic abnormalities with sodium 128, mild anion gap acidosis. Glucose 127. Patient was ordered for intravenous fluids and an anxiolytic. Plan at sign out was to follow up with EPS recommendations. Patient evaluated at bedside she is well-appearing. Patient medically stable at this time. Patient states she has not eaten in 6 days. Patient is evaluated by EPS. She'll be admitted to inpatient psychiatry (Silvio Cr) - Lab Data Lab Results 03/03/19 03/03/19 03/03/19 Range/Units 15:27 15:27 15:27 WBC (3.8-10.6) k/uL RBC (3.80-5.40) m/uL Hgb (11.4-16.0) gm/dL Hct (34.0-46.0) % MCV (80.0-100.0) fL MCH (25.0-35.0) pg MCHC (31.0-37.0) g/dL RDW (11.5-15.5) % Plt Count (150-450) k/uL Neutrophils % % Neutrophils % (Manual) % Band Neutrophils % % Lymphocytes % % Lymphocytes % (Manual) % Monocytes % % Monocytes % (Manual) % Eosinophils % % Basophils % % Metamyelocytes % % Neutrophils # (1.3-7.7) k/uL Neutrophils # (Manual) (1.3-7.7) k/uL Lymphocytes # (1.0-4.8) k/uL Lymphocytes # (Manual) (1.0-4.8) k/uL Monocytes # (0-1.0) k/uL Monocytes # (Manual) (0-1.0) k/uL Eosinophils # (0-0.7) k/uL Basophils # (0-0.2) k/uL Metamyelocytes # (Man) (0) k/uL Nucleated RBCs (0-0) /100 WBC Manual Slide Review Toxic Vacuolation Sodium 128 L (137-145) mmol/L Potassium 4.8 (3.5-5.1) mmol/L Chloride 93 L (98-107) mmol/L Carbon Dioxide 18 L (22-30) mmol/L Anion Gap 17 mmol/L BUN 10 (7-17) mg/dL Creatinine 0.57 (0.52-1.04) mg/dL Est GFR (CKD-EPI)AfAm >90 (>60 ml/min/1.73 sqM) Est GFR (CKD-EPI)NonAf >90 (>60 ml/min/1.73 sqM) Glucose 127 H (74-99) mg/dL Calcium 9.8 (8.4-10.2) mg/dL Magnesium 1.9 (1.6-2.3) mg/dL Total Bilirubin 1.0 (0.2-1.3) mg/dL AST 75 H (14-36) U/L ALT 39 H (4-34) U/L Alkaline Phosphatase 123 (38-126) U/L Total Protein 7.2 (6.3-8.2) g/dL Albumin 4.4 (3.5-5.0) g/dL Urine Opiates Screen Not Detected (NotDetected) Ur Oxycodone Screen Not Detected (NotDetected) Urine Methadone Screen Not Detected (NotDetected) Ur Propoxyphene Screen Not Detected (NotDetected) Ur Barbiturates Screen Not Detected (NotDetected) U Tricyclic Antidepress Not Detected (NotDetected) Ur Phencyclidine Scrn Not Detected (NotDetected) Ur Amphetamines Screen Not Detected (NotDetected) U Methamphetamines Scrn Not Detected (NotDetected) U Benzodiazepines Scrn Not Detected (NotDetected) Urine Cocaine Screen Not Detected (NotDetected) U Marijuana (THC) Screen Not Detected (NotDetected) Serum Alcohol <10 mg/dL 03/03/19 Range/Units 16:03 WBC 8.8 (3.8-10.6) k/uL RBC 4.30 (3.80-5.40) m/uL Hgb 13.4 (11.4-16.0) gm/dL Hct 41.0 (34.0-46.0) % MCV 95.3 (80.0-100.0) fL MCH 31.1 (25.0-35.0) pg MCHC 32.6 (31.0-37.0) g/dL RDW 14.1 (11.5-15.5) % Plt Count 123 L (150-450) k/uL Neutrophils % % Neutrophils % (Manual) 45 % Band Neutrophils % 33 % Lymphocytes % % Lymphocytes % (Manual) 15 % Monocytes % % Monocytes % (Manual) 6 % Eosinophils % % Basophils % % Metamyelocytes % 2 % Neutrophils # (1.3-7.7) k/uL Neutrophils # (Manual) 6.80 (1.3-7.7) k/uL Lymphocytes # (1.0-4.8) k/uL Lymphocytes # (Manual) 1.32 (1.0-4.8) k/uL Monocytes # (0-1.0) k/uL Monocytes # (Manual) 0.53 (0-1.0) k/uL Eosinophils # (0-0.7) k/uL Basophils # (0-0.2) k/uL Metamyelocytes # (Man) 0.18 H (0) k/uL Nucleated RBCs 0 (0-0) /100 WBC Manual Slide Review Performed Toxic Vacuolation Present Sodium (137-145) mmol/L Potassium (3.5-5.1) mmol/L Chloride (98-107) mmol/L Carbon Dioxide (22-30) mmol/L Anion Gap mmol/L BUN (7-17) mg/dL Creatinine (0.52-1.04) mg/dL Est GFR (CKD-EPI)AfAm (>60 ml/min/1.73 sqM) Est GFR (CKD-EPI)NonAf (>60 ml/min/1.73 sqM) Glucose (74-99) mg/dL Calcium (8.4-10.2) mg/dL Magnesium (1.6-2.3) mg/dL Total Bilirubin (0.2-1.3) mg/dL AST (14-36) U/L ALT (4-34) U/L Alkaline Phosphatase (38-126) U/L Total Protein (6.3-8.2) g/dL Albumin (3.5-5.0) g/dL Urine Opiates Screen (NotDetected) Ur Oxycodone Screen (NotDetected) Urine Methadone Screen (NotDetected) Ur Propoxyphene Screen (NotDetected) Ur Barbiturates Screen (NotDetected) U Tricyclic Antidepress (NotDetected) Ur Phencyclidine Scrn (NotDetected) Ur Amphetamines Screen (NotDetected) U Methamphetamines Scrn (NotDetected) U Benzodiazepines Scrn (NotDetected) Urine Cocaine Screen (NotDetected) U Marijuana (THC) Screen (NotDetected) Serum Alcohol mg/dL Disposition <Caleb Mcgee - Last Filed: 03/03/19 16:47> Decision Time: 18:34 <Silvio Cr - Last Filed: 03/05/19 18:34> Clinical Impression: Suicidal ideation Disposition: ADMITTED IP TO THIS HOSP Condition: Fair
[2019-03-03 16:05] LABS: ALT 39 U/L (4-34); AST 75 U/L (14-36); African American GFR (CKD) >90 (>60 ml/min/1.73 sqM); Albumin 4.4 g/dL (3.5-5.0); Alcohol <10 mg/dL; Alkaline Phosphatase 123 U/L (38-126); Anion Gap 17 mmol/L; Blood Urea Nitrogen 10 mg/dL (7-17); Calcium 9.8 mg/dL (8.4-10.2); Carbon Dioxide 18 mmol/L (22-30); Chloride 93 mmol/L (98-107); Glucose 127 mg/dL (74-99); Magnesium 1.9 mg/dL (1.6-2.3); Non-African American GFR(CKD) >90 (>60 ml/min/1.73 sqM); Potassium 4.8 mmol/L (3.5-5.1); Sodium 128 mmol/L (137-145); Total Protein 7.2 g/dL (6.3-8.2)
[2019-03-03 16:16] LABS: Amphetamine Screen,Urine Not Detected (NotDetected); Barbiturate Screen,Urine Not Detected (NotDetected); Benzodiazepines Screen,Urine Not Detected (NotDetected); Cocaine Screen,Urine Not Detected (NotDetected); Methadone Screen, Urine Not Detected (NotDetected); Opiate Screen,Urine Not Detected (NotDetected); Oxycodone Screen, Urine Not Detected (NotDetected); Phencyclidine Screen,Urine Not Detected (NotDetected); Tricyclic Antidepressant,Urine Not Detected (NotDetected); Urn Cannabinoid Scrn Not Detected (NotDetected)
[2019-03-03 16:22] LABS: HGB 13.4 gm/dL (11.4-16.0); MCH 31.1 pg (25.0-35.0); MCHC 32.6 g/dL (31.0-37.0); MCV 95.3 fL (80.0-100.0); Mean Platelet Volume 8.8; Platelet Count 123 k/uL (150-450); RDW 14.1 % (11.5-15.5); WBC 8.8 k/uL (3.8-10.6)
[2019-03-03 17:10] LABS: Band Neutrophils % 33 %; Lymphocytes # (M) 1.32 k/uL (1.0-4.8); Metamyelocytes # (M) 0.18 k/uL (0); Metamyelocytes % 2 %; Monocytes # (M) 0.53 k/uL (0-1.0); Neutrophils % (M) 45 %; Nucleated Red Blood Cells 0 /100 WBC (0-0); Total Cells Counted 200; Toxic Vacuolation Present
[2019-03-03] MEDS ORDERED: LORazepam 1 MG TAB PO ONE (19:10)
[2019-03-03] MEDS ORDERED: MAGNESIUM HYDROXIDE 2,400 MG/10 ML CUP PO PRN (20:14)
[2019-03-03] MEDS ORDERED: ZIPRASIDONE 20 MG VIAL IM PRN (20:14)
[2019-03-03] MEDS ORDERED: MAG HYDROX/AL HYDROX/SIMETH 30 ML CUP PO PRN (20:14)
[2019-03-03] MEDS: LORazepam 1 MG TAB PO PRN (20:51)
[2019-03-03] MEDS: ACETAMINOPHEN TAB 325 MG TAB PO PRN (20:51)
[2019-03-04 08:39] LABS: Basophils % (A) 0 %; Eosinophils # (A) 0.1 k/uL (0-0.7); Eosinophils % (A) 1 %; HCT 40.1 % (34.0-46.0); HGB 13.3 gm/dL (11.4-16.0); Lymphocytes # (A) 2.1 k/uL (1.0-4.8); Lymphocytes % (A) 24 %; MCH 31.7 pg (25.0-35.0); MCHC 33.2 g/dL (31.0-37.0); MCV 95.6 fL (80.0-100.0); Mean Platelet Volume 8.5; Monocytes # (A) 0.4 k/uL (0-1.0); Monocytes % (A) 4 %; Neutrophils # (A) 6.1 k/uL (1.3-7.7); Neutrophils % (A) 69 %; Platelet Count 137 k/uL (150-450); RDW 14.2 % (11.5-15.5); WBC 8.8 k/uL (3.8-10.6)
[2019-03-04 08:45] LABS: ALT 33 U/L (4-34); AST 56 U/L (14-36); African American GFR (CKD) >90 (>60 ml/min/1.73 sqM); Albumin 3.9 g/dL (3.5-5.0); Alkaline Phosphatase 115 U/L (38-126); Anion Gap 7 mmol/L; Blood Urea Nitrogen 4 mg/dL (7-17); Calcium 9.1 mg/dL (8.4-10.2); Carbon Dioxide 26 mmol/L (22-30); Chloride 99 mmol/L (98-107); Cholesterol 161 mg/dL (<200); Glucose 103 mg/dL (74-99); HDL Cholesterol 94 mg/dL (40-60); LDL Cholesterol,Calculated 48 mg/dL (0-99); Non-African American GFR(CKD) >90 (>60 ml/min/1.73 sqM); Potassium 3.8 mmol/L (3.5-5.1); Sodium 132 mmol/L (137-145); Total Bilirubin 0.7 mg/dL (0.2-1.3); Total Protein 6.4 g/dL (6.3-8.2); Triglycerides 97 mg/dL (<150)
[2019-03-04] MEDS: BISOPROLOL-HCTZ 2.5-6.25 MG 1 EACH TAB PO SCH ×2 (09:04→09:06)
[2019-03-04] MEDS: ACETAMINOPHEN TAB 325 MG TAB PO PRN ×2 (09:10→20:26)
[2019-03-04] MEDS: LORazepam 1 MG TAB PO PRN (09:10)
--- NOTE | 2019-03-04 13:08 | P.HP ---
Psychiatric H&P - . H&P Date: 03/04/19 History & Physical: Allergies Allergy/AdvReac Type Severity Reaction Status Date / Time bisoprolol [From Ziac] Allergy Severe Anaphylaxis Verified 03/04/19 09:07 hydrochlorothiazide Allergy Severe Anaphylaxis Verified 03/04/19 09:07 [From Ziac] codeine Allergy Unknown Verified 03/03/19 17:38 shellfish derived [Shrimp] Allergy Unknown Verified 03/03/19 17:38 Sulfa (Sulfonamide Allergy Unknown Verified 03/03/19 17:38 Antibiotics) Vital Signs Temp 98.7 F 03/04/19 05:32 Pulse 112 H 03/04/19 05:32 Resp 18 03/04/19 05:32 BP 118/66 03/04/19 05:32 Pulse Ox 98 03/03/19 14:52 Intake & Output 03/03/19 03/04/19 03/04/19 18:59 06:59 18:59 Weight 78.471 kg Laboratory Last Values WBC 8.8 k/uL (3.8-10.6) 03/04/19 08:15 RBC 4.20 m/uL (3.80-5.40) 03/04/19 08:15 Hgb 13.3 gm/dL (11.4-16.0) 03/04/19 08:15 Hct 40.1 % (34.0-46.0) 03/04/19 08:15 MCV 95.6 fL (80.0-100.0) 03/04/19 08:15 MCH 31.7 pg (25.0-35.0) 03/04/19 08:15 MCHC 33.2 g/dL (31.0-37.0) 03/04/19 08:15 RDW 14.2 % (11.5-15.5) 03/04/19 08:15 Plt Count 137 k/uL (150-450) L 03/04/19 08:15 Neutrophils % 69 % 03/04/19 08:15 Neutrophils % (Manual) 45 % 03/03/19 16:03 Band Neutrophils % 33 % 03/03/19 16:03 Lymphocytes % 24 % 03/04/19 08:15 Lymphocytes % (Manual) 15 % 03/03/19 16:03 Monocytes % 4 % 03/04/19 08:15 Monocytes % (Manual) 6 % 03/03/19 16:03 Eosinophils % 1 % 03/04/19 08:15 Basophils % 0 % 03/04/19 08:15 Metamyelocytes % 2 % 03/03/19 16:03 Neutrophils # 6.1 k/uL (1.3-7.7) 03/04/19 08:15 Neutrophils # (Manual) 6.80 k/uL (1.3-7.7) 03/03/19 16:03 Lymphocytes # 2.1 k/uL (1.0-4.8) 03/04/19 08:15 Lymphocytes # (Manual) 1.32 k/uL (1.0-4.8) 03/03/19 16:03 Monocytes # 0.4 k/uL (0-1.0) 03/04/19 08:15 Monocytes # (Manual) 0.53 k/uL (0-1.0) 03/03/19 16:03 Eosinophils # 0.1 k/uL (0-0.7) 03/04/19 08:15 Basophils # 0.0 k/uL (0-0.2) 03/04/19 08:15 Metamyelocytes # (Man) 0.18 k/uL (0) H 03/03/19 16:03 Nucleated RBCs 0 /100 WBC (0-0) 03/03/19 16:03 Manual Slide Review Performed 03/03/19 16:03 Toxic Vacuolation Present 03/03/19 16:03 Sodium 132 mmol/L (137-145) L 03/04/19 08:15 Potassium 3.8 mmol/L (3.5-5.1) 03/04/19 08:15 Chloride 99 mmol/L (98-107) 03/04/19 08:15 Carbon Dioxide 26 mmol/L (22-30) 03/04/19 08:15 Anion Gap 7 mmol/L 03/04/19 08:15 BUN 4 mg/dL (7-17) L 03/04/19 08:15 Creatinine 0.48 mg/dL (0.52-1.04) L 03/04/19 08:15 Est GFR (CKD-EPI)AfAm >90 (>60 ml/min/1.73 sqM) 03/04/19 08:15 Est GFR (CKD-EPI)NonAf >90 (>60 ml/min/1.73 sqM) 03/04/19 08:15 Glucose 103 mg/dL (74-99) H 03/04/19 08:15 Calcium 9.1 mg/dL (8.4-10.2) 03/04/19 08:15 Magnesium 1.9 mg/dL (1.6-2.3) 03/03/19 15:27 Total Bilirubin 0.7 mg/dL (0.2-1.3) 03/04/19 08:15 AST 56 U/L (14-36) H 03/04/19 08:15 ALT 33 U/L (4-34) 03/04/19 08:15 Alkaline Phosphatase 115 U/L (38-126) 03/04/19 08:15 Total Protein 6.4 g/dL (6.3-8.2) 03/04/19 08:15 Albumin 3.9 g/dL (3.5-5.0) 03/04/19 08:15 Triglycerides 97 mg/dL (<150) 03/04/19 08:15 Cholesterol 161 mg/dL (<200) 03/04/19 08:15 LDL Cholesterol, Calc 48 mg/dL (0-99) 03/04/19 08:15 HDL Cholesterol 94 mg/dL (40-60) H 03/04/19 08:15 TSH 2.310 mIU/L (0.465-4.680) 03/04/19 08:15 Urine Opiates Screen Not Detected (NotDetected) 03/03/19 15:27 Ur Oxycodone Screen Not Detected (NotDetected) 03/03/19 15:27 Urine Methadone Screen Not Detected (NotDetected) 03/03/19 15:27 Ur Propoxyphene Screen Not Detected (NotDetected) 03/03/19 15:27 Ur Barbiturates Screen Not Detected (NotDetected) 03/03/19 15:27 U Tricyclic Antidepress Not Detected (NotDetected) 03/03/19 15:27 Ur Phencyclidine Scrn Not Detected (NotDetected) 03/03/19 15:27 Ur Amphetamines Screen Not Detected (NotDetected) 03/03/19 15:27 U Methamphetamines Scrn Not Detected (NotDetected) 03/03/19 15:27 U Benzodiazepines Scrn Not Detected (NotDetected) 03/03/19 15:27 Urine Cocaine Screen Not Detected (NotDetected) 03/03/19 15:27 U Marijuana (THC) Screen Not Detected (NotDetected) 03/03/19 15:27 Serum Alcohol <10 mg/dL 03/03/19 15:27 03/04/19 13:03 IDENTIFYING DATA: 58-year-old female patient. HPI: Patient admitted to the inpatient psychiatric unit on a voluntary basis with concerns regarding thoughts of suicide. Patient states that recently she had been on a binge alcohol pattern. She states she had her own alliance party on and then daily recently had been drinking a fifth of vodka. She said she called Tuesday to get into [place] but she came into the hospital because she was afraid to be alone and felt like she would go buy alcohol. She admits to having some thoughts of suicide prompting her admission and admits to quite a bit of depression lately she says winter is her most depressed time. PAST PSYCHIATRIC HISTORY: Patient has recently been on Paxil 40 mg daily she was going to talk to her primary doctor about a different medication. She's had 2 prior admissions to the inpatient psychiatric unit, denies any history of suicide attempts. She has taken Wellbutrin in the past but did not like how it made her feel. She denies any history of hallucinations. She denies any history of manic episodes but she says bipolar disorder has been mentioned to her. She does her mood can drop very quickly. Being a worrier she says "yes and no." She denies any OCD type symptomatology. PMH: Body aches, hypertension ALLERGIES: Ziac, codeine, shrimp, sulfa MEDICATIONS: Tylenol when necessary, Maalox when necessary, Ativan when necessary, milk of magnesia when necessary, Geodon when necessary CHEMICAL DEPENDENCY HISTORY: Patient states she has been in a binge alcohol pattern and then more recently has been drinking a fifth of vodka daily. She denies any drug use, relay she used marijuana many years ago. FAMILY PSYCHIATRIC HISTORY: None that she is aware of. FAMILY CHEMICAL DEPENDENCY HISTORY: None known at this time. SOCIAL HISTORY: Says that she lives by herself in a trailer. She has 2 children and 5 grandchildren. She's been twice and twice. MENTAL STATUS EXAM: She is alert and cooperative with the interview. Her speech is fluent, not rapid or pressured. Her thought processes organized. Her mood is described as "hopeful." She denies any current thoughts of harm to self and does not verbalize any thoughts of harm to others. There is no evidence of any active psychosis. She is not displaying any agitation. Cognitively she appears to be grossly intact. I do not note any significant disorientation or memory disturbance. Her insight is adequate, judgment shows evidence of recent impairment. STRENGTHS/WEAKNESSES: Strengthsseeking treatment; weaknessescoping skills, substance use INTELLECTUAL FUNCTIONING: Average IMPRESSIONS: Major depressive disorder recurrent; unspecified anxiety disorder, rule out generalized anxiety disorder; alcohol use disorder PLAN: And is admitted to the inpatient psychiatric unit [facility] on a voluntary basis. She'll be placed on SP 15 minute precautions. She'll participate in group and activity therapies. Baseline laboratory workup will be done the patient and medical consultation will be ordered. She will be restarted on her Paxil 40 MOM daily for depression and anxiety and we will initiate Abilify 2 mg daily to help her augmentation for depression. Trazodone for insomnia will be maintained. Ativan when necessary as ordered for any alcohol withdrawal symptoms estimated length of stay is 3-5 days. Prognosis is guarded.
[2019-03-04] MEDS: ARIPiprazole 2 MG TAB PO SCH (13:31)
[2019-03-04] MEDS: PARoxetine 20 MG TAB PO SCH (13:32)
[2019-03-04] MEDS: THIAMINE 100 MG TAB PO SCH (18:14)
[2019-03-04] MEDS: traZODone HCL 100 MG TAB PO SCH (20:26)
--- NOTE | 2019-03-04 22:02 | P.CONS ---
History of Present Illness - History of Present Illness This is a pleasant 58 years old female with past medical history of hyperten filipe, gastric bypass surgery, depression, alcohol abuse. Patient was admitted to the mental health unit with signs and symptoms of depression and anxiety as well as alcohol use disorder. Medical consult was requested for medical management. Patient denies specific symptoms, she denies chest pain or dyspnea. No abdominal pain. No change in urine bowel habits. No fever. however recently over the last 2-3 days she had s/s of gastroenteritis which is resolved now and she is tolerating diet now. she drinks alcohol about one fifth of smirnoff liquor but not every day instead 3-4 days per week, Vitals are stable. Labs are unremarkable. Urine ataxic and is negative, serum alcohol less than 10. Liver enzymes mildly elevated coming back to normal except AST back to 56 which is close to normal. Sodium was 128 on admission went up to 132. CBC is unremarkable. At home she was taking this. bisoprolol-hydrochlorothiazide 2.5- 6.25 which is a small dose. Review of Systems CONSTITUTIONAL: No fever, no malaise, no fatigue. HEENT: No recent visual problems or hearing problems. Denied any sore throat. CARDIOVASCULAR: No orthopnea, PND, no palpitations, no syncope. PULMONARY: No shortness of breath, no cough, no hemoptysis. GASTROINTESTINAL: No diarrhea, no nausea, no vomiting, no abdominal pain. Normoactive bowel sounds. NEUROLOGICAL: No headaches, no weakness, no numbness. HEMATOLOGICAL: Denies any bleeding or petechiae. GENITOURINARY: Denies any burning micturition, frequency, or urgency. MUSCULOSKELETAL/RHEUMATOLOGICAL: Denies any joint pain, swelling, or any muscle pain. ENDOCRINE: Denies any polyuria or polydipsia. Past Medical History Past Medical History: Hypertension Additional Past Medical History / Comment(s): gastric by pass in 2001 History of Any Multi-Drug Resistant Organisms: None Reported Past Surgical History: Cholecystectomy Additional Past Surgical History / Comment(s): GASTRIC BYPASS. Past Anesthesia/Blood Transfusion Reactions: No Reported Reaction Past Psychological History: Bipolar, Depression Smoking Status: Former smoker Past Alcohol Use History: Heavy Past Drug Use History: None Reported - Past Family History Father Family Medical History: Cancer Additional Family Medical History / Comment(s): both mom and dad of CA and sister has diabetes Medications and Allergies Home Medications Medication Instructions Recorded Confirmed Type Bisoprolol-Hctz 2.5-6.25 mg [Ziac 1 tab PO DAILY 05/17/17 03/03/19 History 2.5-6.25 MG] Acetaminophen Tab [Tylenol Tab] 650 mg PO Q4H PRN 10/25/18 03/03/19 History Multivitamins, Thera [Multivitamin 2 tab PO DAILY 10/25/18 03/03/19 History (formulary)] Vitamin B Complex 2 cap PO DAILY 10/25/18 03/03/19 History Ibuprofen [Motrin] 800 mg PO AC-TID PRN 03/03/19 03/03/19 History traZODone HCL [Desyrel] 100 mg PO HS 03/03/19 03/03/19 History Allergies Allergy/AdvReac Type Severity Reaction Status Date / Time bisoprolol [From Ziac] Allergy Severe Anaphylaxis Verified 03/04/19 09:07 hydrochlorothiazide Allergy Severe Anaphylaxis Verified 03/04/19 09:07 [From Ziac] codeine Allergy Unknown Verified 03/03/19 17:38 shellfish derived [Shrimp] Allergy Unknown Verified 03/03/19 17:38 Sulfa (Sulfonamide Allergy Unknown Verified 03/03/19 17:38 Antibiotics) Physical Exam Vitals: Vital Signs Temp Pulse Resp BP 03/04/19 05:32 98.7 F 112 H 18 118/66 03/03/19 20:43 98.1 F 93 16 129/86 03/03/19 16:03 20 GENERAL: The patient is alert and oriented x3, not in any acute distress. Well developed, well nourished. HEENT: Pupils are round and equally reacting to light. EOMI. No scleral icterus. No conjunctival pallor. Normocephalic, atraumatic. No pharyngeal erythema. No thyromegaly. CARDIOVASCULAR: S1 and S2 present. No murmurs, rubs, or gallops. PULMONARY: Chest is clear to auscultation, no wheezing or crackles. ABDOMEN: Soft, nontender, nondistended, normoactive bowel sounds. No palpable organomegaly. MUSCULOSKELETAL: No joint swelling or deformity. EXTREMITIES: No cyanosis, clubbing, or pedal edema. NEUROLOGICAL: Gross neurological examination did not reveal any focal deficits. SKIN: No rashes. No petechiae Results CBC & Chem 7: 03/04/19 08:15 03/04/19 08:15 Labs: Abnormal Lab Results - Last 24 Hours (Table) 03/03/19 03/03/19 03/04/19 Range/Units 15:27 16:03 08:15 Plt Count 123 L 137 L (150-450) k/uL Metamyelocytes # (Man) 0.18 H (0) k/uL Sodium 128 L (137-145) mmol/L Chloride 93 L (98-107) mmol/L Carbon Dioxide 18 L (22-30) mmol/L BUN (7-17) mg/dL Creatinine (0.52-1.04) mg/dL Glucose 127 H (74-99) mg/dL AST 75 H (14-36) U/L ALT 39 H (4-34) U/L HDL Cholesterol (40-60) mg/dL 03/04/19 Range/Units 08:15 Plt Count (150-450) k/uL Metamyelocytes # (Man) (0) k/uL Sodium 132 L (137-145) mmol/L Chloride (98-107) mmol/L Carbon Dioxide (22-30) mmol/L BUN 4 L (7-17) mg/dL Creatinine 0.48 L (0.52-1.04) mg/dL Glucose 103 H (74-99) mg/dL AST 56 H (14-36) U/L ALT (4-34) U/L HDL Cholesterol 94 H (40-60) mg/dL Assessment and Plan Assessment: Hypertension Alcohol abuse at-risk of alcohol withdrawal mildly elevated liver enzymes, mostly related to alcohol abuse, improving Depression, management as per primary team. Mild hyponatremia, improving, Could be related to alcohol on medication Plan: This is a pleasant 58 years old female who presents with depression, alcohol abuse. Management of the psychiatric illnesses as per the primary psychiatrist team. Her sodium and high liver enzymes mostly likely due to alcohol , drugs and recent Gastroenteritis like signs and symptoms, and they are improving. Also her low sodium could be closed by hydrochlorothiazide which is a small dose. We will stop bisoprolol-hydrochlorothiazide, start small dose of amlodipine. Blood pressure is controlled . Continue with Ativan as needed for alcohol withdrawal, start thiamine, c/w CIWA pt counseled to quit alcohol , she confirmed to me she already made her mind to quit, she has plan to go to [place] and participate in AA groups. Labs and medication were reviewed.. Continue same treatment. Continue with symptomatic treatment. Resume home medication. Monitor lytes and vitals. DVT and GI prophylaxis. Further recommendations of the clinical course of the patient Please refer for discharge instruction upon discharge for more recommendation We recommend patient follow up with her PCP Dr. Coleman in one week Thank you for consulting us
[2019-03-05 07:55] LABS: AST 58 U/L (14-36); African American GFR (CKD) >90 (>60 ml/min/1.73 sqM); Anion Gap 5 mmol/L; Blood Urea Nitrogen 8 mg/dL (7-17); Calcium 9.5 mg/dL (8.4-10.2); Carbon Dioxide 31 mmol/L (22-30); Chloride 99 mmol/L (98-107); Glucose 96 mg/dL (74-99); Non-African American GFR(CKD) >90 (>60 ml/min/1.73 sqM); Potassium 3.8 mmol/L (3.5-5.1); Sodium 135 mmol/L (137-145)
[2019-03-05] MEDS: ACETAMINOPHEN TAB 325 MG TAB PO PRN ×2 (08:55→17:40)
[2019-03-05] MEDS: PARoxetine 20 MG TAB PO SCH (08:56)
[2019-03-05] MEDS: amLODIPine 2.5 MG TAB PO SCH (08:56)
[2019-03-05] MEDS: THIAMINE 100 MG TAB PO SCH (08:56)
[2019-03-05] MEDS: ARIPiprazole 2 MG TAB PO SCH ×2 (08:56→20:28)
[2019-03-05] MEDS ORDERED: THIAMINE 100 MG TAB PO SCH (09:00)
[2019-03-05 11:16] LABS: Hemoglobin A1C 5.2 % (4.0-6.0)
--- NOTE | 2019-03-05 12:32 | P.PN ---
Subjective Progress Note Date: 03/05/19 The patient has been seen today as follow-up, chart reviewed, case discussed with the treatment team. Patient has been going to selected groups and other unit activities. Patient reports fair sleep and appetite. She denies any crying spells or panic attacks but reports feeling anxious all the time. The patient denies any auditory or visual hallucinations. Also the patient denies any paranoid ideation. The patient denies any suicidal or homicidal ideations. The patient is compliant with his medications and denies any adverse reactions. Objective - Vital Signs Vital signs: Vital Signs Temp 98.5 F 03/05/19 06:58 Pulse 130 H 03/05/19 08:50 Resp 16 03/05/19 06:58 BP 120/82 03/05/19 08:50 Pulse Ox 92 L 03/05/19 06:58 - Exam Objective: Vitals has been reviewed. Mental status examination; Appearance: The patient appears stated age, casually dressed, no specific features. Gait/posture: Normal gait, Normal arm swinging: No abnormal movements. Attitude and behavior: engaged, cooperative, eye contact. Motor activity: Normal psychomotor activity Speech: Normal rate, tone. Mood: ''Alright'' Affect: Constricted Thought form: goal-directed, linear, coherent. Somatically focussed. Thought content: Non-delusional, denies suicidal or homicidal thoughts, denies intentions or plans. Perception: Denies any auditory or visual hallucinations Orientation: Patient patient was fully oriented to time place person and situation. Insight: Patient has fair insight about his psychiatric disorder. Judgment: Patient has fair judgment about his psychiatric treatment. - Labs CBC & Chem 7: 03/04/19 08:15 03/05/19 07:26 Labs: Abnormal Lab Results - Last 24 Hours (Table) 03/05/19 Range/Units 07:26 Sodium 135 L (137-145) mmol/L Carbon Dioxide 31 H (22-30) mmol/L AST 58 H (14-36) U/L Assessment and Plan Assessment: Major depressive disorder recurrent; unspecified anxiety disorder, rule out generalized anxiety disorder; alcohol use disorder Plan: PLAN: Continue inpatient level of care due to need for further stabilization on medications Precautions: Continue 15 minutes check for safety. Consults internal medicine team for management of medical problems. Provide the patient individual, group therapy, substance use disorder counseling to give better insight and learn coping skills. Medications: Major change Abilify to 2 mg by mouth daily at bedtime. Continue Paxil 40 mg by mouth every morning. Continue trazodone 100 mg by mouth daily at bedtime. Will continue CIWA protocol. Discharge patient to OUTPATIENT services upon a stabilization Expected LOS: 3-5 days
[2019-03-05] MEDS: IBUPROFEN 200 MG TAB PO PRN (13:46)
[2019-03-05] MEDS: LORazepam 1 MG TAB PO PRN (17:40)
[2019-03-05] MEDS ORDERED: INFLUENZA VACCINE (6 MOS+) 60 MCG/0.5 ML SYRINGE IM ONE (17:48)
[2019-03-05] MEDS ORDERED: PNEUMOCOCCAL VACC-PNEUMOVAX 23 25 MCG/0.5 ML VIAL IM ONE (17:48)
[2019-03-05] MEDS: traZODone HCL 100 MG TAB PO SCH (20:28)
[2019-03-06] MEDS: PARoxetine 20 MG TAB PO SCH (08:54)
[2019-03-06] MEDS: THIAMINE 100 MG TAB PO SCH (08:54)
[2019-03-06] MEDS: amLODIPine 2.5 MG TAB PO SCH (08:54)
[2019-03-06] MEDS ORDERED: INFLUENZA VACCINE (6 MOS+) 60 MCG/0.5 ML SYRINGE IM ONE (10:00)
[2019-03-06] MEDS ORDERED: PNEUMOCOCCAL VACC-PNEUMOVAX 23 25 MCG/0.5 ML VIAL IM ONE (10:00)
--- NOTE | 2019-03-06 11:25 | P.PN ---
Subjective Progress Note Date: 03/06/19 The patient seen in the chart was reviewed. The case was discussed with the staff in the team meeting. The patient continues to report feeling depressed and anxious. She reports improved sleep last night. She denies any crying spells or panic attacks. The patient remained somatically focused and compl ained of feeling tired during the day. The patient insists that she needs to be in the hospital for her medical issues. The patient also reports urges and cravings for alcohol and is afraid that if she would go home she would relapse. The patient denies any auditory or visual hallucinations at this time. She denies any active suicidal or homicidal ideations at this time. Objective - Vital Signs Vital signs: Vital Signs Temp 96.8 F L 03/06/19 06:35 Pulse 132 H 03/06/19 08:55 Resp 16 03/06/19 08:55 BP 116/73 03/06/19 08:55 Pulse Ox 97 03/06/19 06:35 Intake & Output 03/05/19 03/06/19 03/06/19 18:59 06:59 18:59 Weight 78.471 kg - Exam Objective: Vitals has been reviewed. Mental status examination; Appearance: The patient appears stated age, casually dressed, no specific features. Gait/posture: Normal gait, Normal arm swinging: No abnormal movements. Attitude and behavior: engaged, cooperative, eye contact. Motor activity: Normal psychomotor activity Speech: Normal rate, tone. Mood: ''Alright'' Affect: Constricted Thought form: goal-directed, linear, coherent. Somatically focussed. Thought content: Non-delusional, denies suicidal or homicidal thoughts, denies intentions or plans. Perception: Denies any auditory or visual hallucinations Orientation: Patient patient was fully oriented to time place person and situation. Insight: Patient has fair insight about his psychiatric disorder. Judgment: Patient has fair judgment about his psychiatric treatment. - Labs CBC & Chem 7: 03/04/19 08:15 03/05/19 07:26 Assessment and Plan Assessment: Major depressive disorder recurrent; unspecified anxiety disorder, rule out generalized anxiety disorder; alcohol use disorder Plan: PLAN: Continue inpatient level of care due to need for further stabilization on medications Precautions: Continue 15 minutes check for safety. Consults internal medicine team for management of medical problems. Provide the patient individual, group therapy, substance use disorder counseling to give better insight and learn coping skills. Medications: Continue Abilify to 2 mg by mouth daily at bedtime. Continue Paxil 40 mg by mouth every morning. Continue trazodone 100 mg by mouth daily at bedtime. Will continue CIWA protocol. Discharge patient to OUTPATIENT services upon a stabilization Expected LOS: 3-5 days
[2019-03-06] MEDS: ACETAMINOPHEN TAB 325 MG TAB PO PRN ×2 (11:36→17:47)
[2019-03-06 14:58] VITALS: BMI 27.1
[2019-03-06] MEDS: traZODone HCL 100 MG TAB PO SCH (20:46)
[2019-03-06] MEDS: ARIPiprazole 2 MG TAB PO SCH (20:46)
[2019-03-06] MEDS: LORazepam 1 MG TAB PO PRN (20:46)
[2019-03-07] MEDS: amLODIPine 2.5 MG TAB PO SCH (08:48)
[2019-03-07] MEDS: LORazepam 1 MG TAB PO PRN (08:48)
[2019-03-07] MEDS: PARoxetine 20 MG TAB PO SCH (08:48)
[2019-03-07] MEDS: THIAMINE 100 MG TAB PO SCH (08:48)
[2019-03-07] MEDS: IBUPROFEN 200 MG TAB PO PRN ×2 (09:30→20:07)
--- NOTE | 2019-03-07 11:58 | P.PN ---
Subjective Progress Note Date: 03/07/19 The patient seen in the chart was reviewed. The case was discussed with the staff in the team meeting. The patient continues to report feeling depressed. She reports feelings of hopelessness and helplessness. The patient reports fair appetite but reports poor sleep because of the disturbance and noise on the unit. The patient reports feeling a little bit better physically today the patient reports she attends milieu therapy. She denies any crying spells. She denies any active suicidal or homicidal ideations but reports feeling overwhelmed and reports lack of desire to live anymore. The patient denies any auditory or visual hallucinations. The patient has been tolerating medications without any side effects. Objective - Vital Signs Vital signs: Vital Signs Temp 98.3 F 03/07/19 06:54 Pulse 87 03/07/19 06:54 Resp 18 03/07/19 06:54 BP 112/68 03/07/19 06:54 Pulse Ox 97 03/06/19 06:35 Intake & Output 03/06/19 03/07/19 03/07/19 18:59 06:59 18:59 Weight 78.471 kg - Exam Objective: Vitals has been reviewed. Mental status examination; Appearance: The patient appears stated age, casually dressed, no specific features. Gait/posture: Normal gait, Normal arm swinging: No abnormal movements. Attitude and behavior: engaged, cooperative, eye contact. Motor activity: Normal psychomotor activity Speech: Normal rate, tone. Mood: ''Alright'' Affect: Constricted Thought form: goal-directed, linear, coherent. Somatically focussed. Thought content: Non-delusional, denies suicidal or homicidal thoughts, denies intentions or plans. Perception: Denies any auditory or visual hallucinations Orientation: Patient patient was fully oriented to time place person and situation. Insight: Patient has fair insight about his psychiatric disorder. Judgment: Patient has fair judgment about his psychiatric treatment. - Labs CBC & Chem 7: 03/04/19 08:15 03/05/19 07:26 Assessment and Plan Assessment: Major depressive disorder recurrent; unspecified anxiety disorder, rule out ge neralized anxiety disorder; alcohol use disorder Plan: PLAN: Continue inpatient level of care due to need for further stabilization on medications Precautions: Continue 15 minutes check for safety. Consults internal medicine team for management of medical problems. Provide the patient individual, group therapy, substance use disorder counseling to give better insight and learn coping skills. Medications: Increase Abilify to 5 mg by mouth daily at bedtime. Continue Paxil 40 mg by mouth every morning. Continue trazodone 100 mg by mouth daily at bedtime. Will continue CIWA protocol. Discharge patient to OUTPATIENT services upon a stabilization Expected LOS: 3-5 days
[2019-03-07 12:14] LABS: Appearance,Urine Clear (Clear); Bilirubin,Urine Negative (Negative); Blood,Urine Negative (Negative); Color,Urine Light Yellow; Glucose,Urine (UA) Negative (Negative); Ketones,Urine Negative (Negative); Leukocyte Esterase,Urine Negative (Negative); Nitrite,Urine Negative (Negative); PH, Urine 6.5 (5.0-8.0); Protein,Urine Negative (Negative); Specific Gravity,Urine 1.003 (1.001-1.035); Urobilinogen,Urine <2.0 mg/dL (<2.0)
[2019-03-07 18:23] LABS: Urine Alcohol Negative (Negative); Urine Barbiturate Negative (Negative); Urine Cocaine Negative (Negative); Urine Methadone Negative (Negative); Urine Opiates Negative (Negative); Urine Phencyclidine Negative (Negative)
[2019-03-07] MEDS: ACETAMINOPHEN TAB 325 MG TAB PO PRN (18:44)
[2019-03-07] MEDS: traZODone HCL 100 MG TAB PO SCH (20:06)
[2019-03-07] MEDS: ARIPiprazole 5 MG TAB PO SCH (20:06)
[2019-03-08] MEDS: PARoxetine 20 MG TAB PO SCH (08:53)
[2019-03-08] MEDS: amLODIPine 2.5 MG TAB PO SCH (08:53)
[2019-03-08] MEDS: LORazepam 1 MG TAB PO PRN ×2 (08:54→20:19)
[2019-03-08] MEDS: IBUPROFEN 200 MG TAB PO PRN (08:54)
[2019-03-08] MEDS: THIAMINE 100 MG TAB PO SCH (08:54)
[2019-03-08] MEDS: ACETAMINOPHEN TAB 325 MG TAB PO PRN ×2 (09:59→20:18)
--- NOTE | 2019-03-08 12:10 | P.PN ---
Subjective Progress Note Date: 03/08/19 The patient seen in the chart was reviewed. The case was discussed with the staff in the team meeting. The patient continues to report feeling depressed and irritable but reports that she is working on it. The patient has been attending milieu therapy. The patient reports fair appetite and sleep. The p atient reports feeling a little bit better physically today the patient reports she attends milieu therapy. She denies any crying spells but reports feeling panicky at times. She denies any active suicidal or homicidal ideations at this time. The patient denies any auditory or visual hallucinations. The patient has been tolerating medications without any side effects. Objective - Vital Signs Vital signs: Vital Signs Temp 98.2 F 03/08/19 05:02 Pulse 105 H 03/08/19 05:02 Resp 16 03/08/19 05:02 BP 146/75 03/08/19 05:02 Pulse Ox 97 03/06/19 06:35 - Exam Objective: Vitals has been reviewed. Mental status examination; Appearance: The patient appears stated age, casually dressed, no specific features. Gait/posture: Normal gait, Normal arm swinging: No abnormal movements. Attitude and behavior: engaged, cooperative, eye contact. Motor activity: Normal psychomotor activity Speech: Hyperverbal and circumstantial but redirectable. Mood: 'OK'' Affect: Constricted Thought form: goal-directed, linear, coherent. Somatically focussed. Thought content: Non-delusional, denies suicidal or homicidal thoughts, denies intentions or plans. Perception: Denies any auditory or visual hallucinations Orientation: Patient patient was fully oriented to time place person and si tuation. Insight: Patient has fair insight about his psychiatric disorder. Judgment: Patient has fair judgment about his psychiatric treatment. - Labs CBC & Chem 7: 03/04/19 08:15 03/05/19 07:26 Assessment and Plan Assessment: Major depressive disorder recurrent; unspecified anxiety disorder, rule out generalized anxiety disorder; alcohol use disorder Plan: PLAN: Continue inpatient level of care due to need for further stabilization on medications Precautions: Continue 15 minutes check for safety. Consults internal medicine team for management of medical problems. Provide the patient individual, group therapy, substance use disorder counseling to give better insight and learn coping skills. Medications: Continue Abilify to 5 mg by mouth daily at bedtime. Continue Paxil 40 mg by mouth every morning. Continue trazodone 100 mg by mouth daily at bedtime. Will continue CIWA protocol. Discharge patient to OUTPATIENT services upon a stabilization Expected LOS: 3-5 days
[2019-03-08] MEDS: IBUPROFEN 400 MG TAB PO PRN (14:56)
[2019-03-08] MEDS: traZODone HCL 100 MG TAB PO SCH (20:17)
[2019-03-08] MEDS: ARIPiprazole 5 MG TAB PO SCH (20:17)
[2019-03-09] MEDS: LORazepam 1 MG TAB PO PRN ×3 (08:07→20:28)
[2019-03-09] MEDS: IBUPROFEN 400 MG TAB PO PRN (08:07)
[2019-03-09] MEDS: THIAMINE 100 MG TAB PO SCH (08:08)
[2019-03-09] MEDS: PARoxetine 20 MG TAB PO SCH (08:08)
[2019-03-09] MEDS: amLODIPine 2.5 MG TAB PO SCH (08:08)
--- NOTE | 2019-03-09 12:50 | P.PN ---
Subjective Progress Note Date: 03/09/19 The patient seen in the chart was reviewed. The case was discussed with the staff in the team meeting. The patient reports feeling better. She reports improved mood and functioning. The patient continues to report periods of anxiety at times and is anxious about her discharge. The patient remained arianna atically focused but is directable the patient reports that her sons are going to be supportive and would be helping her with the rent. The patient has been attending milieu therapy. The patient reports fair appetite and sleep. The patient attends milieu therapy. She denies any crying spells but reports feeling panicky at times. She denies any active suicidal or homicidal ideations at this time. The patient denies any auditory or visual hallucinations. The patient has been tolerating medications without any side effects. Objective - Vital Signs Vital signs: Vital Signs Temp 98.8 F 03/09/19 06:01 Pulse 109 H 03/09/19 08:05 Resp 15 03/09/19 06:01 BP 119/70 03/09/19 08:05 Pulse Ox 97 03/06/19 06:35 - Exam Objective: Vitals has been reviewed. Mental status examination; Appearance: The patient appears stated age, casually dressed, no specific features. Gait/posture: Normal gait, Normal arm swinging: No abnormal movements. Attitude and behavior: engaged, cooperative, eye contact. Motor activity: Normal psychomotor activity Speech: Hyperverbal and circumstantial but redirectable. Mood: 'OK'' Affect: Constricted Thought form: goal-directed, linear, coherent. Somatically focussed. Thought content: Non-delusional, denies suicidal or homicidal thoughts, denies intentions or plans. Perception: Denies any auditory or visual hallucinations Orientation: Patient patient was fully oriented to time place person and situation. Insight: Patient has fair insight about his psychiatric disorder. Judgment: Patient has fair judgment about his psychiatric treatment. - Labs CBC & Chem 7: 03/04/19 08:15 03/05/19 07:26 Assessment and Plan Assessment: Major depressive disorder recurrent; unspecified anxiety disorder, rule out generalized anxiety disorder; alcohol use disorder Plan: PLAN: Continue inpatient level of care due to need for further stabilization on medications Precautions: Continue 15 minutes check for safety. Consults internal medicine team for management of medical problems. Provide the patient individual, group therapy, substance use disorder counseling to give better insight and learn coping skills. Medications: Continue Abilify to 5 mg by mouth daily at bedtime. Continue Paxil 40 mg by mouth every morning. Continue trazodone 100 mg by mouth daily at bedtime. Discharge patient to OUTPATIENT services upon a stabilization Expected LOS: 3-5 days
[2019-03-09] MEDS: LORATADINE 10 MG TAB PO PRN (13:04)
[2019-03-09] MEDS: ACETAMINOPHEN TAB 325 MG TAB PO PRN (13:04)
[2019-03-09] MEDS: traZODone HCL 100 MG TAB PO SCH (20:28)
[2019-03-09] MEDS: ARIPiprazole 5 MG TAB PO SCH (20:28)
--- NOTE | 2019-03-10 07:44 | P.PN ---
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 She indicates that her mood is improving. She was admitted several days ago for suicidal ideation in the context of alcohol use disorder. CIWA scores have been minimal. She states that her medicines seem to be helping she has been on Paxil for numerous years Abilify was added as an augmentation strategy. She feels that is making a beneficial difference. She is hoping to be discharged early next week and plans to attend [facility] for alcohol use disorder treatment. She has been attending groups. She did have questions regarding her medications and those were addressed. Mental status exam: The patient is alert she is dressed in her own clothing hygiene grooming adequate. Eye contact is appropriate speech is fluent and spontaneous nonpressured. She indicates her mood is improving. She is reporting no suicidal ideation intent or plan she is reporting no homicidal ideation intent or plan. She is reporting no auditory or visual hallucinations or any specific delusions. There is no observed evidence of psychosis. She demonstrates no tangential thinking loose associations or flight of ideas. She does not appear hypomanic or manic. Insight and judgment appear to be improving. She is oriented to person place and date. Affect is appropriate expresses. She demonstrates no verbal or physical aggressiveness. She demonstrates no involuntary repetitive movements. Plan the patient will continue on her current psychotropic medications we will monitor her for safety. She is encouraged to participate in groups. Vital signs reviewed they're within normal limits. CIWA scores are normal. She anticipates being discharged early next week she appears to be clinically stabilizing.
[2019-03-10] MEDS: PARoxetine 20 MG TAB PO SCH (08:45)
[2019-03-10] MEDS: THIAMINE 100 MG TAB PO SCH (08:45)
[2019-03-10] MEDS: amLODIPine 2.5 MG TAB PO SCH (08:46)
[2019-03-10] MEDS: ACETAMINOPHEN TAB 325 MG TAB PO PRN ×2 (08:47→19:34)
[2019-03-10] MEDS: LORazepam 1 MG TAB PO PRN ×2 (09:10→21:09)
[2019-03-10] MEDS: IBUPROFEN 400 MG TAB PO PRN ×2 (12:45→21:09)
[2019-03-10] MEDS: ARIPiprazole 5 MG TAB PO SCH (21:09)
[2019-03-10] MEDS: LORATADINE 10 MG TAB PO PRN (21:09)
[2019-03-10] MEDS: traZODone HCL 100 MG TAB PO SCH (21:09)
[2019-03-11] MEDS: IBUPROFEN 400 MG TAB PO PRN ×2 (07:14→16:42)
[2019-03-11] MEDS: THIAMINE 100 MG TAB PO SCH (08:56)
[2019-03-11] MEDS: PARoxetine 20 MG TAB PO SCH (08:56)
[2019-03-11] MEDS: amLODIPine 2.5 MG TAB PO SCH (08:56)
[2019-03-11] MEDS: LORATADINE 10 MG TAB PO PRN (09:54)
[2019-03-11] MEDS: ACETAMINOPHEN TAB 325 MG TAB PO PRN ×2 (13:52→20:57)
[2019-03-11] MEDS: LORazepam 1 MG TAB PO PRN ×2 (13:52→20:57)
--- NOTE | 2019-03-11 14:34 | P.PN ---
Progress Note - Text Interval history: The patient is found in her room she follows me to an interview room. She indicates her mood is stable. She is hoping to be discharged soon. She has been talking with her sons and she plans to move once she is done with rehab. One possibility is to move down to [place]. She is hoping that she will be able to be discharged tomorrow or Tuesday so that she can make arrangements before starting rehab on . She has no questions or concerns regarding medication. She has been attending groups. No reports of any behavioral disturbance him staff. Mental status exam: The patient is alert she is pleasant and cooperative she demonstrated adequate hygiene grooming. Speech is fluent spontaneous nonpre ssured. She readily engages in conversation. She is reporting no suicidal ideation intent or plan. She reports no homicidal ideation intent or plan. She is reporting no auditory or visual hallucinations and there is no objective evidence of psychosis. She does not appear to be hypomanic or manic. She demonstrates no verbal or physical aggressiveness. She demonstrates no involuntary repetitive movements. Insight and judgment improving. Affect is pleasant and cooperative she demonstrates appropriate smiling. Plan: The patient will continue on her current psychotropic medications. She appears to be clinically stabilizing. We will continue to monitor vital signs she is encouraged to continue participating in the milieu.
[2019-03-11] MEDS: traZODone HCL 100 MG TAB PO SCH (20:56)
[2019-03-11] MEDS: ARIPiprazole 5 MG TAB PO SCH (20:57)
[2019-03-12 05:10] VITALS: BP 121/76; PULSE 103; RESP 16; TEMP 98.4
[2019-03-12] MEDS: IBUPROFEN 400 MG TAB PO PRN (06:30)
[2019-03-12] MEDS: PARoxetine 20 MG TAB PO SCH (08:56)
[2019-03-12] MEDS: THIAMINE 100 MG TAB PO SCH (08:56)
[2019-03-12] MEDS: amLODIPine 2.5 MG TAB PO SCH (08:56)
[2019-03-12] MEDS: ACETAMINOPHEN TAB 325 MG TAB PO PRN (08:57)
[2019-03-12] MEDS ORDERED: LORATADINE 10 MG TAB PO SCH (09:00)
[2019-03-12] MEDS: LORazepam 1 MG TAB PO PRN (10:58)
--- NOTE | 2019-03-12 15:06 | P.DS ---
Providers Date of admission: 03/03/19 20:08 Attending physician: Ajith Coleman Consults: 03/03/19 20:14 Consult Physician Routine Consulting Provider: Dimple Thomas Consult Reason/Comments: medical management Do you want consulting provider notified?: Yes 03/05/19 16:02 Consult Physician Routine Consulting Provider: Ajith Coleman Consult Reason/Comments: weakness and SOB Do you want consulting provider notified?: Yes Primary care physician: Ajith Coleman - Discharge Diagnosis(es) (1) Suicidal ideation Current Visit: Yes Status: Resolved Priority: Low (2) Alcoholism Current Visit: No Status: Chronic Priority: High (3) Depression Current Visit: No Status: Chronic Priority: Low Hospital Course: She is a 59-year-old female presenting the psychiatric unit voluntarily with suicidal ideation. She has history of an alcohol use disorder and described a 6 day rodriguez where she is drinking approximately a fifth of vodka per day. She presented to the emergency room with thoughts of suicide and increasing depression that developed during this rodriguez. We admitted her to the psychiatric unit initially under the care of Dr. Leonardo. We provided a biopsychosocial assessment. The [employer] consultant environmental health technician completed initial physical exam and medical history. The environmental health technician diagnosed hypert ension, alcohol abuse, mildly elevated liver enzymes, in mild hyponatremia. The [employer] [facility] consultant recommended to discontinue her outpatient antihypertensive (bisoprolol-hydrochlorothiazide) and start amlodipine 2.5 mg daily. We treated her alcohol withdrawal with Ativan using the CIWA scale. She had minimal to mild alcohol withdrawal symptoms. We continued her outpatient Paxil 40 mg daily and trazodone 100 mg at bedtime. We augmented the antidepressant with Abilify 5 mg at bedtime. With the assistance of the social service worker she arranged for admission to [facility]. At the time of discharge she denied thoughts of or suicide. She was neatly groomed, pleasant and cooperative. Her speech was spontaneous with normal rate, rhythm and volume. Her thinking was organized, coherent and goal directed. She denied hallucinations and did not appear to be responding to internal stimuli. Patient Condition at Discharge: Fair Plan - Discharge Summary Discharge Rx Participant: No New Discharge Prescriptions: New ARIPiprazole [Abilify] 5 mg PO HS 30 Days #30 tab amLODIPine [Norvasc] 2.5 mg PO DAILY 30 Days #30 tab PARoxetine [Paxil] 40 mg PO DAILY 30 Days #60 tab Continue Vitamin B Complex 2 cap PO DAILY Multivitamins, Thera [Multivitamin (formulary)] 2 tab PO DAILY Acetaminophen Tab [Tylenol] 650 mg PO Q4H PRN PRN Reason: Pain Ibuprofen [Motrin] 800 mg PO AC-TID PRN PRN Reason: Pain traZODone HCL [Desyrel] 100 mg PO HS 30 Days #30 tab Discontinued Bisoprolol-Hctz 2.5-6.25 mg [Ziac 2.5-6.25 MG] 1 tab PO DAILY Discharge Medication List Acetaminophen Tab [Tylenol] 650 mg PO Q4H PRN 10/25/18 [History] Multivitamins, Thera [Multivitamin (formulary)] 2 tab PO DAILY 10/25/18 [History] Vitamin B Complex 2 cap PO DAILY 10/25/18 [History] Ibuprofen [Motrin] 800 mg PO AC-TID PRN 03/03/19 [History] ARIPiprazole [Abilify] 5 mg PO HS 30 Days #30 tab 03/12/19 [Rx] PARoxetine [Paxil] 40 mg PO DAILY 30 Days #60 tab 03/12/19 [Rx] amLODIPine [Norvasc] 2.5 mg PO DAILY 30 Days #30 tab 03/12/19 [Rx] traZODone HCL [Desyrel] 100 mg PO HS 30 Days #30 tab 03/12/19 [Rx] Follow up [facility]ment[facility]Ref[facility] - [facility]15/19 10:30 am (Intake) Ajith Coleman MD [Primary Care Provider] - 1-2 days Patient Instructions/Handouts: Depression (DC), Help Prevent Suicide (DC) Activity/Diet/Wound Care/Special Instructions: Discontinue bisoprolol-hydrochlorothiazide upon discharge Activity and diet as tolerated. Avoid the use of street drugs and alcohol. Take all medications as prescribed. When you are in need of refills on your medications please contact your medical provider and/or outpatient psychiatrist to have this done. Please go to scheduled outpatient appointment for aftercare treatment. If symptoms return or become worse, call the crisis line at and/or go to the nearest emergency room for evaluation. Discharge Disposition: HOME SELF-CARE
== END 2019-03-12 17:25 | disposition home or self-care (01) | DRG 885 ==
LOC: EC 14:47 → 3MHU 20:08
PROVIDERS: ADMIT Family Medicine; ATTEND Family Medicine
DX: F33.9 Major depressive disorder, recurrent, unspecified (principal); E87.1 Hypo-osmolality and hyponatremia; E87.2 Acidosis; R45.851 Suicidal ideations; F10.230 Alcohol dependence with withdrawal, uncomplicated; F41.9 Anxiety disorder, unspecified; I10 Essential (primary) hypertension; G47.00 Insomnia, unspecified; R74.8 Abnormal levels of other serum enzymes; Y90.0 Blood alcohol level of less than 20 mg/100 ml; Z71.3 Dietary counseling and surveillance; Z79.899 Other long term (current) drug therapy; Z88.2 Allergy status to sulfonamides; Z88.8 Allergy status to other drugs, medicaments and biological substances; Z91.040 Latex allergy status; Z88.5 Allergy status to narcotic agent; Z91.013 Allergy to seafood; Z90.49 Acquired absence of other specified parts of digestive tract; Z98.84 Bariatric surgery status; Z87.891 Personal history of nicotine dependence; Z83.3 Family history of diabetes mellitus; Z80.9 Family history of malignant neoplasm, unspecified
CPT/HCPCS: 36415; 80048; 80053; 80061; 80306; 80320; 81003; 82075; 83036; 83735; 84443; 84450; 85025; 90686; 90732; 96361; 96365; 96366; 96375; 99285

== ENCOUNTER 2019-04-09 14:16 | Emergency (ER) | payer BC, OTHER ==
[2019-04-09 14:42] VITALS: RESP 18
[2019-04-09] MEDS ORDERED: ONDANSETRON 4 MG/2 ML VIAL IVP STA (14:54)
[2019-04-09] MEDS ORDERED: MORPHINE SULFATE 2 MG/ML SYRINGE IVP STA (14:54)
--- NOTE | 2019-04-09 15:50 | CT ---
EXAMINATION TYPE: CT brain morenita lau con DATE OF EXAM: 04/09/2019 COMPARISON: 11/27/2018 HISTORY: Fall with posterior injury and memory loss. CT DLP: 1426.[address] of the brain was performed. The ventricles, basal cisterns and sulci overlying the cerebral convexities demonstrate enlargement. There is no evidence for intracranial hemorrhage or sulcal effacement. There is decreased attenuatio n about the periventricular white matter and deep white matter of both cerebral hemispheres, compatib le with chronic small vessel ischemia. No mass effects are seen. If symptoms persist consider MRI. Osseous calvarium is intact. Posterior right parietal scalp hematoma. IMPRESSION: 1. Age related atrophic and chronic small vessel ischemic change without acute intracranial process seen at this time. CT Cervical Spine: Unenhanced CT of the cervical spine was performed with bone and soft tissue window settings submitted . Coronal and sagittal reconstruction is obtained. There is normal alignment and prevertebral soft tissues. No evidence for acute cervical fracture . Scattered degenerative disc disease and spondylosis. Biapical scarring. IMPRESSION: 1. No evidence for acute fracture or subluxation of the cervical spine.
--- NOTE | 2019-04-09 17:06 | ED ---
Fall HPI - General Chief Complaint: Fall Stated Complaint: Fall Time Seen by Provider: 04/09/19 14:36 Source: patient, EMS Mode of arrival: EMS - History of Present Illness Initial Comments: 59-year-old female patient presents to the emergency department today for evaluation of head injury. Patient does admit to drinking alcohol today. States that she woke up and had pain and bleeding from her head. She does not number where she was in her house when this occurred. Patient believes she may have called the ambulance because there is no else in her home. She denies any current headache, blurred vision, or double vision. She denies dizziness or weakness. She denies any neck or back pain. Denies any other injuries. She denies any nausea or vomiting with this. States her last tetanus vaccine was given within the last few months. Patient denies any recent rash, fever, chills, shortness breath, chest pain, abdominal pain, diarrhea, constipation, numbness, tingling, hematuria, dysuria, urinary urgency, urinary frequency, or any other complaints. - Related Data Home Medications Medication Instructions Recorded Confirmed Acetaminophen Tab [Tylenol] 650 mg PO Q4H PRN 10/25/18 03/03/19 Multivitamins, Thera [Multivitamin 2 tab PO DAILY 10/25/18 03/03/19 (formulary)] Vitamin B Complex 2 cap PO DAILY 10/25/18 03/03/19 Ibuprofen [Motrin] 800 mg PO AC-TID PRN 03/03/19 03/03/19 Previous Rx's Medication Instructions Recorded ARIPiprazole [Abilify] 5 mg PO HS 30 Days #30 tab 03/12/19 PARoxetine [Paxil] 40 mg PO DAILY 30 Days #60 tab 03/12/19 amLODIPine [Norvasc] 2.5 mg PO DAILY 30 Days #30 tab 03/12/19 traZODone HCL [Desyrel] 100 mg PO HS 30 Days #30 tab 03/12/19 Allergies Allergy/AdvReac Type Severity Reaction Status Date / Time bisoprolol [From Ziac] Allergy Severe Anaphylaxis Verified 03/05/19 17:53 hydrochlorothiazide Allergy Severe Anaphylaxis Verified 03/05/19 17:53 [From Ziac] codeine Allergy Unknown Verified 03/05/19 17:53 Latex, Natural Rubber Allergy Rash/Hives Verified 03/05/19 17:53 shellfish derived [Shrimp] Allergy Unknown Verified 03/05/19 17:53 Sulfa (Sulfonamide Allergy Unknown Verified 03/05/19 17:53 Antibiotics) Review of Systems ROS Statement: Those systems with pertinent positive or pertinent negative responses have been documented in the HPI. ROS Other: All systems not noted in ROS Statement are negative. Past Medical History Past Medical History: Hypertension Additional Past Medical History / Comment(s): gastric by pass in 2001 History of Any Multi-Drug Resistant Organisms: None Reported Past Surgical History: Section, Cholecystectomy, Hysterectomy Additional Past Surgical History / Comment(s): GASTRIC BYPASS, c4 c5 fusion in 2006, benign thryoid lesion removed 2008 Past Anesthesia/Blood Transfusion Reactions: No Reported Reaction Past Psychological History: Bipolar, Depression Smoking Status: Former smoker Past Alcohol Use History: Heavy Past Drug Use History: None Reported - Past Family History Father Family Medical History: Cancer Additional Family Medical History / Comment(s): both mom and dad of [place] and sister has diabetes General Exam Limitations: no limitations General appearance: alert, in no apparent distress, other (This is a well- developed, well-nourished adult female patient in no acute distress. Vital signs upon presentation are temperature 98.2F, pulse 94, respirations 18, blood pressure 115/71, pulse ox 98% on room air.) Head exam: Present: other (There is soft tissue swelling over the right occipital scalp with a very small skin puncture, no active bleeding. There is dried matted blood in her hair. There is no bony step-off or deformity noted to palpation around the site.) Eye exam: Present: normal appearance, PERRL, EOMI. Absent: scleral icterus, conjunctival injection, nystagmus, periorbital swelling ENT exam: Present: normal exam, normal oropharynx, mucous membranes moist, TM's normal bilaterally (No hemotympanum) Neck exam: Present: normal inspection, full ROM, other (Nontender, no step-off, no deformity to firm midline palpation of the posterior cervical spine. Full range of motion without pain or limitation.). Absent: tenderness, meningismus, lymphadenopathy Respiratory exam: Present: normal lung sounds bilaterally. Absent: respiratory distress, wheezes, rales, rhonchi, stridor Cardiovascular Exam: Present: regular rate, normal rhythm, normal heart sounds. Absent: systolic murmur, diastolic murmur, rubs, gallop, clicks GI/Abdominal exam: Present: soft, normal bowel sounds. Absent: distended, tenderness, guarding, rebound, rigid Extremities exam: Present: normal inspection, full ROM, normal capillary refill. Absent: tenderness, pedal edema, joint swelling, calf tenderness Back exam: Present: normal inspection, other (Nontender, no step-off, no deformity to firm midline palpation of the thoracic and lumbar vertebrae. Full range of motion without pain or limitation.). Absent: vertebral tenderness Neurological exam: Present: alert, oriented X3, CN II-XII intact Psychiatric exam: Present: normal affect, normal mood Skin exam: Present: warm, dry, intact, normal color. Absent: rash Course Vital Signs 04/09/19 04/09/19 04/09/19 14:38 17:28 19:51 Temperature 98.0 F 98.6 F Pulse Rate 94 76 85 Respiratory 18 18 18 Rate Blood Pressure 115/71 119/71 125/73 O2 Sat by Pulse 98 97 94 L Oximetry 04/09/19 21:56 Temperature 97.7 F Pulse Rate 95 Respiratory 18 Rate Blood Pressure 140/86 O2 Sat by Pulse 96 Oximetry Medical Decision Making - Medical Decision Making 59-year-old female patient presented to the emergency department today for evaluation after head injury at home. Physical examination did reveal soft tissue swelling to the right occipital scalp with a small puncture wound noted with no bleeding. No bony step-off or deformity was noted. Patient is neurologically intact with no focal deficits. She was intoxicated. Patient CT brain and C-spine was negative. We did have to wait for patient to be sober prior to discharge as she had no ride home. Patient remained neurologically intact throughout visit. She is ambulatory and stable for discharge. She is instructed to follow-up with her primary care physician for recheck in 1-2 days. Return parameters were discussed in detail. She verbalizes understanding and agrees with this plan. - Radiology Data Radiology results: report reviewed, image reviewed CT of the brain and C-spine without contrast was obtained. Report is reviewed in its entirety. Impression by Dr. Singer shows age-related atrophic and chronic small vessel ischemic change without acute intracranial process seen at this time. No evidence for acute fracture or subluxation of the cervical spine. Disposition Clinical Impression: Alcohol intoxication, Head injury Disposition: HOME SELF-CARE Condition: Good Instructions (If sedation given, give patient instructions): Head Injury (ED), Alcohol Intoxication (ED) Additional Instructions: Follow-up with your primary care physician for recheck in 1-2 days. Return to the emergency department immediately for any new, worsening, or concerning symptoms. Is patient prescribed a controlled substance at d/c from ED?: No Referrals: Rajesh Herron DO [Primary Care Provider] - 1-2 days Time of Disposition: 21:32
[2019-04-09] MEDS ORDERED: ACETAMINOPHEN TAB 500 MG TAB PO STA (17:22)
[2019-04-09] MEDS ORDERED: IBUPROFEN 600 MG TAB PO STA (20:22)
[2019-04-09 21:57] VITALS: BP 140/86; PULSE 95; TEMP 97.7
== END 2019-04-09 21:57 | disposition home or self-care (01) ==
LOC: EC 14:16
DX: S01.03XA Puncture wound without foreign body of scalp, initial encounter (principal); F10.129 Alcohol abuse with intoxication, unspecified; I10 Essential (primary) hypertension; F31.9 Bipolar disorder, unspecified; Z88.5 Allergy status to narcotic agent; Z91.040 Latex allergy status; Z91.048 Other nonmedicinal substance allergy status; Z88.8 Allergy status to other drugs, medicaments and biological substances; Z88.2 Allergy status to sulfonamides; Z90.13 Acquired absence of bilateral breasts and nipples; Z98.84 Bariatric surgery status; Z98.1 Arthrodesis status; Z87.891 Personal history of nicotine dependence; W19.XXXA Unspecified fall, initial encounter
CPT/HCPCS: 82075; 72125; 70450; 99284; 96374; 96375; J2405; J2270

== ENCOUNTER 2019-08-24 14:16 | Inpatient (IN) | payer MEDICAID, OTHER ==
--- NOTE | 2019-08-24 15:15 | ED ---
General Adult HPI - General Chief complaint: Psychiatric Symptoms Stated complaint: Mental Health Time Seen by Provider: 08/24/19 14:25 Source: patient, EMS, RN notes reviewed, old records reviewed Mode of arrival: EMS Limitations: no limitations - History of Present Illness Initial comments: This a 59-year-old female presents emergency department stating she wants to . Patient states she's been drinking daily and she's either Benadryl herself to or she's been a cut her wrist with a negative echo night. Patient states she has been depressed for quite a while and she's taken medication for but she doesn't believe is working. Patient states she's been to rehab for different times but she continues to drink per patient denies any drug use. Patient denies any physical complaints today. Patient denies headache patient denies numbness weakness. Patient denies any difficulty breathing shortest breath. Patient denies any chest pain or palpitations. Patient denies any abdominal pain patient denies nausea vomiting or diarrhea. - Related Data Home Medications Medication Instructions Recorded Confirmed Multivitamins, Thera [Multivitamin 2 tab PO DAILY 10/25/18 08/24/19 (formulary)] Vitamin B Complex 2 cap PO DAILY 10/25/18 08/24/19 EPINEPHrine (Auto Inject) [Epipen] 0.3 mg IM ONCE PRN 08/24/19 08/24/19 Loratadine 10 mg PO DAILY 08/24/19 08/24/19 PARoxetine HCL 40 mg PO DAILY 08/24/19 08/24/19 PARoxetine [Paxil] 20 mg PO DAILY 08/24/19 08/24/19 traZODone HCL 150 mg PO HS PRN 08/24/19 08/24/19 Previous Rx's Medication Instructions Recorded amLODIPine [Norvasc] 2.5 mg PO DAILY 30 Days #30 tab 03/12/19 Allergies Allergy/AdvReac Type Severity Reaction Status Date / Time bisoprolol [From Ziac] Allergy Severe Anaphylaxis Verified 08/24/19 15:49 hydrochlorothiazide Allergy Severe Anaphylaxis Verified 08/24/19 15:49 [From Ziac] codeine Allergy Unknown Verified 08/24/19 15:49 Latex, Natural Rubber Allergy Rash/Hives Verified 08/24/19 15:49 shellfish derived [Shrimp] Allergy Unknown Verified 08/24/19 15:49 Sulfa (Sulfonamide Allergy Unknown Verified 08/24/19 15:49 Antibiotics) Review of Systems ROS Statement: Those systems with pertinent positive or pertinent negative responses have been documented in the HPI. ROS Other: All systems not noted in ROS Statement are negative. Past Medical History Past Medical History: Hypertension Additional Past Medical History / Comment(s): gastric by pass in 2001 History of Any Multi-Drug Resistant Organisms: None Reported Past Surgical History: Section, Cholecystectomy, Hysterectomy Additional Past Surgical History / Comment(s): GASTRIC BYPASS, c4 c5 fusion in 2006, benign thryoid lesion removed 2008 Past Anesthesia/Blood Transfusion Reactions: No Reported Reaction Past Psychological History: Bipolar, Depression Smoking Status: Former smoker Past Alcohol Use History: Heavy Past Drug Use History: None Reported - Past Family History Father Family Medical History: Cancer Additional Family Medical History / Comment(s): both mom and dad of [place] and sister has diabetes General Exam - General Exam Comments Initial Comments: GENERAL: Patient is well-developed and well-nourished. Patient is nontoxic and well- hydrated and is in no acute distress. ENT: Neck is soft and supple. No significant lymphadenopathy is noted. Oropharynx i s clear. Moist mucous membranes. Neck has full range of motion without eliciting any pain. EYES: The sclera were anicteric and conjunctiva were pink and moist. Extraocular movements were intact and pupils were equal round and reactive to light. Eyelids were unremarkable. PULMONARY: Unlabored respirations. Good breath sounds bilaterally. No audible rales rhonchi or wheezing was noted. CARDIOVASCULAR: There is a regular rate and rhythm without any murmurs gallops or rubs. ABDOMEN: Soft and nontender with normal bowel sounds. SKIN: Skin is clear with no lesions or rashes and otherwise unremarkable. NEUROLOGIC: Patient is alert and oriented x3. Cranial nerves II through XII are grossly intact. Motor and sensory are also intact. Normal speech, volume and content. Symmetrical smile. MUSCULOSKELETAL: Normal extremities with adequate strength and full range of motion. No lower extremity swelling or edema. No calf tenderness. LYMPHATICS: No significant lymphadenopathy is noted PSYCHIATRIC: Patient states she is depressed and she doesn't have a purpose in life anymore and she would like to kill herself. Limitations: no limitations Course Vital Signs 08/24/19 08/24/19 14:23 18:08 Temperature 98.4 F Pulse Rate 112 H 106 H Respiratory 18 Rate Blood Pressure 139/87 O2 Sat by Pulse 94 L Oximetry Medical Decision Making - Medical Decision Making EKG shows sinus tachycardia at 101 bpm PA interval 240 QRS is 86 QT interval 346 QTC is 448. Patient's EKG shows no ST segment elevation or depression. - Lab Data Lab Results 08/24/19 Range/Units 16:16 Urine Opiates Screen Not Detected (NotDetected) Ur Oxycodone Screen Not Detected (NotDetected) Urine Methadone Screen Not Detected (NotDetected) Ur Propoxyphene Screen Not Detected (NotDetected) Ur Barbiturates Screen Not Detected (NotDetected) U Tricyclic Antidepress Not Detected (NotDetected) Ur Phencyclidine Scrn Not Detected (NotDetected) Ur Amphetamines Screen Not Detected (NotDetected) U Methamphetamines Scrn Not Detected (NotDetected) U Benzodiazepines Scrn Not Detected (NotDetected) Urine Cocaine Screen Not Detected (NotDetected) U Marijuana (THC) Screen Not Detected (NotDetected) Disposition Clinical Impression: Suicidal ideation, Depression, Alcoholism Disposition: ADMITTED IP TO THIS HOSP Referrals: Darion Ramirez MD [Primary Care Provider] - 1-2 days Time of Disposition: 20:19
[2019-08-24] MEDS ORDERED: ACETAMINOPHEN TAB 500 MG TAB PO STA (16:17)
[2019-08-24 17:19] LABS: Amphetamine Screen,Urine Not Detected (NotDetected); Barbiturate Screen,Urine Not Detected (NotDetected); Benzodiazepines Screen,Urine Not Detected (NotDetected); Cocaine Screen,Urine Not Detected (NotDetected); Methadone Screen, Urine Not Detected (NotDetected); Opiate Screen,Urine Not Detected (NotDetected); Oxycodone Screen, Urine Not Detected (NotDetected); Phencyclidine Screen,Urine Not Detected (NotDetected); Tricyclic Antidepressant,Urine Not Detected (NotDetected); Urn Cannabinoid Scrn Not Detected (NotDetected)
[2019-08-24] MEDS ORDERED: LORazepam 1 MG TAB PO STA (21:18)
[2019-08-25] MEDS ORDERED: MAGNESIUM HYDROXIDE 2,400 MG/10 ML CUP PO PRN (00:41)
[2019-08-25] MEDS ORDERED: ACETAMINOPHEN TAB 325 MG TAB PO PRN (03:06)
[2019-08-25] MEDS: LORazepam 1 MG TAB PO PRN ×4 (03:15→15:49)
[2019-08-25] MEDS: ACETAMINOPHEN TAB 325 MG TAB PO PRN ×4 (03:43→20:35)
[2019-08-25 07:57] LABS: Anisocytosis Slight; Basophils % (A) 0 %; Eosinophils # (A) 0.2 k/uL (0-0.7); Eosinophils % (A) 3 %; HCT 39.3 % (34.0-46.0); Lymphocytes % (A) 28 %; MCH 30.8 pg (25.0-35.0); MCV 93.3 fL (80.0-100.0); Mean Platelet Volume 8.2; Monocytes # (A) 0.4 k/uL (0-1.0); Monocytes % (A) 6 %; Neutrophils # (A) 4.5 k/uL (1.3-7.7); Neutrophils % (A) 62 %; Platelet Count 156 k/uL (150-450); RBC 4.21 m/uL (3.80-5.40); RDW 16.4 % (11.5-15.5); WBC 7.2 k/uL (3.8-10.6)
[2019-08-25 08:13] LABS: ALT 31 U/L (4-34); AST 66 U/L (14-36); African American GFR (CKD) >90 (>60 ml/min/1.73 sqM); Albumin 4.4 g/dL (3.5-5.0); Alkaline Phosphatase 138 U/L (38-126); Anion Gap 9 mmol/L; Blood Urea Nitrogen 13 mg/dL (7-17); Calcium 9.3 mg/dL (8.4-10.2); Carbon Dioxide 29 mmol/L (22-30); Chloride 93 mmol/L (98-107); Cholesterol 175 mg/dL (<200); Glucose 124 mg/dL (74-99); HDL Cholesterol 97 mg/dL (40-60); LDL Cholesterol,Calculated 63 mg/dL (0-99); Non-African American GFR(CKD) >90 (>60 ml/min/1.73 sqM); Potassium 4.2 mmol/L (3.5-5.1); Sodium 131 mmol/L (137-145); Total Bilirubin 0.8 mg/dL (0.2-1.3); Total Protein 6.4 g/dL (6.3-8.2); Triglycerides 75 mg/dL (<150)
--- NOTE | 2019-08-25 09:13 | XR ---
EXAMINATION TYPE: XR shoulder complete RT DATE OF EXAM: 08/25/2019 CLINICAL HISTORY: pain TECHNIQUE: Three views of the right shoulder are obtained. COMPARISON: None FINDINGS: There is no acute fracture/dislocation evident. There is healed fracture noted of the righ t humeral neck and proximal diaphysis. The acromioclavicular and glenohumeral joint spaces appear wi thin normal limits. The visualized ribs are intact and unremarkable. IMPRESSION: 1. There is no acute fracture or dislocation. ICD 10 NO FRACTURE, INITIAL EVALUATION
[2019-08-25 14:49] LABS: Hemoglobin A1C 5.5 % (4.0-6.0)
--- NOTE | 2019-08-25 17:08 | CONS ---
CONSULTATION CHIEF COMPLAINT: Major depression. HISTORY OF PRESENT ILLNESS: This lady is brought to the emergency room with extreme depression and thoughts of suicide. She is also complaining of pain in the left shoulder. REVIEW OF SYSTEMS: She denied any difficulty with headaches, visual changes, chest pain, shortness of breath, hypertension, murmurs, rheumatic fever, abdominal pain, nausea, vomiting, hematemesis, melena, hematochezia, jaundice, hepatitis, renal failure, dysuria, frequency, urgency, hematuria, or incontinence. She is not diabetic. Past medical history, family history and personal and social histories reveal that she is allergic to IODINE, LATEX, CODEINE AND SULFA. MEDICATIONS: Buspirone 5 mg 1 or 2 tablets t.i.d. p.r.n., vitamin D 50,000 units a month, Paxil 20 mg once a day, trazodone 150 mg HS p.r.n. sleep, amlodipine 2.5 mg once a day. The remainder of her history is unremarkable. She used to smoke but does not any longer. She does not drink. PHYSICAL EXAMINATION: Blood pressure 132/88, pulse of 90, respirations 16 and she is afebrile. In general, she appeared to be in discomfort due to her left shoulder pain. Head, ears, eyes, nose, mouth, and throat normal. The chest is clear. Cardiac exam is normal. The abdomen is soft and nontender. The extremities are normal except for the left shoulder which is irritable. IMPRESSION: 1. Major depression. 2. Left shoulder pain. 3. Hypertension. RECOMMENDATION: None. Her shoulder will be x-rayed. MMODL / IJN: [id number] /
--- NOTE | 2019-08-25 18:56 | P.HP ---
Psychiatric H&P - . H&P Date: 08/25/19 History & Physical: IDENTIFYING Data: The patient is a 59-year-old female who currently lives by herself, unemployed, has psychiatric history of depression, alcohol use disorder, and medical history of and hypertension and ALLERGIC reaction. The patient has been admitted to our inpatient psychiatric services after been transferred from ED. Patient was initially brought herself to ED because of alcohol intoxication and suicidal ideation. The patient has been admitted on voluntary basis to our service. CHIEF COMPLAINT: "Feeling depressed and tired of drinking." HISTORY OF PRESENT ILLNESS: The patient presents to the ED the cause of alcohol intoxication, not able to stop drinking, and suicidal ideation. He was talking about cutting herself and reports failed multiple trials to stop drinking including inpatient rehab with the last time was few month ago. Patient was evaluated today, reports has been feeling more depressed lately after relapsing on alcohol after she came back from last inpatient treatment which was in March of this year. She reports has been feeling more depressed and she became suicidal when she was intoxicated with alcohol. She reports loss of her suicidal thoughts during intoxication and he denies previous suicidal attempts. She reports previous depressive episodes and current depression symptoms including depressed mood, lack of motivation, diminished pleasure, and sometimes hopeless and worthless. Reports her suicidal thoughts only when she is intoxicated, and he denies any previous suicidal attempts. Reports very poor sleep because of drinking alcohol and variable appetite based on her mood. Denies severe persistent unexplained anxiety, and reports very remote history of panic attacks. She reports her anxiety lately related to being at home after she lost her job because of cognitive 19 pandemic. She denies any psychological trauma or PTSD symptoms. She denies any current or previous symptoms of steve including euphoric mood, grandiosity, absence need to sleep due to unusual increase in activities, or irrational behavior. She denies any current or previous symptoms of psychosis including hallucinations, paranoid ideation, or delusions. She denies any history of severe mood swings, outbursts of anger/rage, or severe agitation besides times been intoxicated. She denies any history of self-injurious behavior. Patient reports last alcohol drink was yesterday, and for the last few months has been drinking 2 times weekly with average one fifth of liquor per occasion. Reports current withdrawal symptoms including shaking, irritability, and anxiety. PAST PSYCHIATRIC HISTORY: Previous diagnoses: Depressive disorder Previous psychiatric hospitalizations: Reports 3-4 previous psychiatric hospitalization, and multiple inpatient rehab treatment. Previous suicide attempts: Denies any previous attempts. Previous outpatient psychiatric treatment: Reports previous outpatient counseling for alcohol use disorder, denies outpatient psychiatric treatment with psychiatrist, but continued to receive medications for depression by her PCP. Current psychiatric medications: Currently on Paxil 60 mg daily, and trazodone as needed for insomnia. Previous medication trials: Reports previous trial of Abilify which caused her to feel "funny" and she doesn't like it. Previous treatments with naltrexone injection for alcohol craving prescribed by her PCP. SUBSTANCE ABUSE HISTORY: Nicotine: Quit smoking 1 week ago, prior to that used to smoke 6-7 cigarettes daily. Alcohol: Started to drink at age 20, with her drinking pattern was socially. Developed alcohol drinking problem in her mid 40s. Reports her drinking pattern mainly binges on alcohol was 2 binges every week and average one fifth of liquor per occasion. Last drink was yesterday. Reports history of severe multiple inpatient detoxification, and history of severe withdrawal symptoms. She has one DUI in 2013. Reports multiple inpatient rehab treatment with the last time was March this year. She had previous 3 years of sobriety and she used to go to AA meetings and received long-acting naltrexone injection. Denies any history of using marijuana or other street drugs. Social History: Patient was born in [place] and raised up by her parents. Denies any history of a childhood problem or abuse Housing: Currently lives by herself. The patient is currently , has 2 children Work history: Currently unemployed. Education: Patient reports attaining an educational level of high school. Legal history: Denies any current legal problems History of psychological trauma: Denies FAMILY HISTORY: Psychiatric Illness: Mother suffered from depression symptoms but never diagnosed. Substance abuse: Paternal grandfather was alcoholic. Completed Suicides: Denies. Medical History: Hypertension, ALLERGIC reaction MENTAL STATUS EVALUATION: Appearance: Appears stated age, fairly groomed, average body built, and no specific features. Gait/ posture: Steady gait, normal arm swinging, no abnormal movements, with relaxed posture. Attitude and Behavior: Engaged, related to the interviewer in socially accepted manner, fair eye contact during course of interview. Motor Activity: Normal psychomotor activity. Speech: spontaneous, normal rate, rhythm, and articulation. Normal volume. Not pressured. Language: Articulating, naming objects and repeat phrases. Mood: Depressed Affect: constricted. Thought process: Linear goal-directed. Association: intact. Thought content: Denies delusions, denies current suicidal thoughts, eyes homicidal thoughts, no intentions, or plans. Perception: Denies any hallucinations Alertness: No impairment. Concentration: Intact Orientation: Patient was oriented to time, place, person, and situation Insight regarding psychiatric condition: Patient has fair insight about her psychiatric condition Judgment regarding daily activities and social situation: Patient has fair judgment about need for treatment Impulse control: Fair Strengths: Housing. Stable general medical condition. Previous sobriety. Challenges: Financial. Severe alcohol drinking. Allergies Allergy/AdvReac Type Severity Reaction Status Date / Time bisoprolol [From Ziac] Allergy Severe Anaphylaxis Verified 08/24/19 15:49 hydrochlorothiazide Allergy Severe Anaphylaxis Verified 08/24/19 15:49 [From Ziac] codeine Allergy Unknown Verified 08/24/19 15:49 Latex, Natural Rubber Allergy Rash/Hives Verified 08/24/19 15:49 shellfish derived [Shrimp] Allergy Unknown Verified 08/24/19 15:49 Sulfa (Sulfonamide Allergy Unknown Verified 08/24/19 15:49 Antibiotics) Vital Signs Temp 99.0 F 08/25/19 08:38 Pulse 117 H 08/25/19 15:46 Resp 18 08/25/19 08:38 BP 134/78 08/25/19 15:46 Pulse Ox 96 08/25/19 08:38 Intake & Output 08/24/19 08/25/19 08/25/19 18:59 06:59 18:59 Weight 78.925 kg 75.296 kg Review of Lab results: Laboratory Last Values WBC 7.2 k/uL (3.8-10.6) 08/25/19 07:20 RBC 4.21 m/uL (3.80-5.40) 08/25/19 07:20 Hgb 13.0 gm/dL (11.4-16.0) 08/25/19 07:20 Hct 39.3 % (34.0-46.0) 08/25/19 07:20 MCV 93.3 fL (80.0-100.0) 08/25/19 07:20 MCH 30.8 pg (25.0-35.0) 08/25/19 07:20 MCHC 33.0 g/dL (31.0-37.0) 08/25/19 07:20 RDW 16.4 % (11.5-15.5) H 08/25/19 07:20 Plt Count 156 k/uL (150-450) 08/25/19 07:20 Neutrophils % 62 % 08/25/19 07:20 Lymphocytes % 28 % 08/25/19 07:20 Monocytes % 6 % 08/25/19 07:20 Eosinophils % 3 % 08/25/19 07:20 Basophils % 0 % 08/25/19 07:20 Neutrophils # 4.5 k/uL (1.3-7.7) 08/25/19 07:20 Lymphocytes # 2.0 k/uL (1.0-4.8) 08/25/19 07: Monocytes # 0.4 k/uL (0-1.0) 08/25/19 07:20 Eosinophils # 0.2 k/uL (0-0.7) 08/25/19 07: Basophils # 0.0 k/uL (0-0.2) 08/25/19 07:20 Anisocytosis Slight 08/25/19 07:20 Sodium 131 mmol/L (137-145) L 08/25/19 07:20 Potassium 4.2 mmol/L (3.5-5.1) 08/25/19 07:20 Chloride 93 mmol/L (98-107) L 08/25/19 07:20 Carbon Dioxide 29 mmol/L (22-30) 08/25/19 07:20 Anion Gap 9 mmol/L 08/25/19 07:20 BUN 13 mg/dL (7-17) 08/25/19 07:20 Creatinine 0.54 mg/dL (0.52-1.04) 08/25/19 07:20 Est GFR (CKD-EPI)AfAm >90 (>60 ml/min/1.73 sqM) 08/25/19 07:20 Est GFR (CKD-EPI)NonAf >90 (>60 ml/min/1.73 sqM) 08/25/19 07:20 Glucose 124 mg/dL (74-99) H 08/25/19 07:[address] Glu mg/dL 111 08/25/19 07:20 Hemoglobin A1c 5.5 % (4.0-6.0) 08/25/19 07:20 Calcium 9.3 mg/dL (8.4-10.2) 08/25/19 07:20 Total Bilirubin 0.8 mg/dL (0.2-1.3) 08/25/19 07:20 AST 66 U/L (14-36) H 08/25/19 07:20 ALT 31 U/L (4-34) 08/25/19 07:20 Alkaline Phosphatase 138 U/L (38-126) H 08/25/19 07:20 Total Protein 6.4 g/dL (6.3-8.2) 08/25/19 07:20 Albumin 4.4 g/dL (3.5-5.0) 08/25/19 07:20 Triglycerides 75 mg/dL (<150) 08/25/19 07:20 Cholesterol 175 mg/dL (<200) 08/25/19 07:20 LDL Cholesterol, Calc 63 mg/dL (0-99) 08/25/19 07:20 HDL Cholesterol 97 mg/dL (40-60) H 08/25/19 07:20 TSH 1.720 mIU/L (0.465-4.680) 08/25/19 07:20 Urine Opiates Screen Not Detected (NotDetected) 08/24/19 16:16 Ur Oxycodone Screen Not Detected (NotDetected) 08/24/19 16:16 Urine Methadone Screen Not Detected (NotDetected) 08/24/19 16:16 Ur Propoxyphene Screen Not Detected (NotDetected) 08/24/19 16:16 Ur Barbiturates Screen Not Detected (NotDetected) 08/24/19 16:16 U Tricyclic Antidepress Not Detected (NotDetected) 08/24/19 16:16 Ur Phencyclidine Scrn Not Detected (NotDetected) 08/24/19 16:16 Ur Amphetamines Screen Not Detected (NotDetected) 08/24/19 16:16 U Methamphetamines Scrn Not Detected (NotDetected) 08/24/19 16:16 U Benzodiazepines Scrn Not Detected (NotDetected) 08/24/19 16:16 Urine Cocaine Screen Not Detected (NotDetected) 08/24/19 16:16 U Marijuana (THC) Screen Not Detected (NotDetected) 08/24/19 16:16 Assessment: Major depressive disorder, recurrent, severe, without psychotic features. Alcohol use disorder, severe. Alcohol withdrawal. TREATMENT PLAN/RECOMMENDATIONS: Medical Decision making: The patient presented with worsening depression symptoms, and suicidal ideation. The patient at high risk to hurt herself if she is not in the inpatient setting. The patient's psychiatric symptoms are not stable and she needs further management of psychiatric medications and further planning for discharge. Therefore, inpatient level of care is needed. Continue the patient inpatient for safety. Continue the patient under 15 minutes safe check for safety. Continue treatment of depression and alcohol use disorder. Psych education regarding her diagnosis, and treatment option. The patient will also be provided with individual therapy, group therapy, substance abuse counseling, gain insight, and coping skills. Consider medical consultation if any acute medical issue arise. Medications: Start Paxil 60 mg daily for depression and anxiety. Trazodone 150 mg at bedtime as needed for insomnia. Consider Vivitrol injection for alcohol craving. Refer patient for outpatient counseling for substance use disorder after discharge Prognosis is fair, contingent on patient has been compliant with his medications and has been followed up closely with outpatient mental health provider after discharge. The patient will be assessed on daily basis, and will be discharged back to his outpatient mental health provider upon stabilization. EXPECTED LENGTH OF STAY: 7 days. 08/25/19 18:36
[2019-08-25] MEDS: PARoxetine 20 MG TAB PO SCH (20:18)
[2019-08-25] MEDS: traZODone HCL 50 MG TAB PO PRN (20:35)
[2019-08-26] MEDS: ACETAMINOPHEN TAB 325 MG TAB PO PRN ×5 (03:04→22:53)
[2019-08-26] MEDS: LORazepam 1 MG TAB PO PRN ×2 (03:05→09:39)
[2019-08-26] MEDS ORDERED: VITAMIN B COMPLEX PO SCH (09:00)
[2019-08-26] MEDS: amLODIPine 2.5 MG TAB PO SCH (09:30)
[2019-08-26] MEDS: MULTIVITAMINS, THERA 1 EACH TAB PO SCH (09:31)
[2019-08-26] MEDS: LORATADINE 10 MG TAB PO SCH (09:33)
[2019-08-26] MEDS: IBUPROFEN 600 MG TAB PO PRN (15:07)
[2019-08-26] MEDS: CYCLOBENZAPRINE 5 MG TAB PO PRN (15:07)
--- NOTE | 2019-08-26 15:49 | P.PN ---
Progress Note - Text Progress Note Date: 08/26/19 Subjective: Patient was seen today as a cross coverage for Dr. Vargas. The patient was evaluated, chart reviewed, case discussed with the treatment team. Patient reported better sleep last night and eating more today. Patient has been going to groups and other unit activities. The patient is compliant with her medications and denies any adverse reactions. She reports generally feeling better and minimizes depression. She denies feeling hopeless or suicidal today. Patient reports had severe right shoulder pain which is related to an injury happened a few weeks ago which caused her limited range of movement. She denies any manic or psychotic symptoms, and minimizes alcohol withdrawal symptoms. Objective: Vitals has been reviewed. Mental status examination; Appearance: Appears stated age, fairly groomed, average body built, and no specific features. Gait/ posture: Steady gait, normal arm swinging, no abnormal movements, with relaxed posture. Attitude and Behavior: Engaged, related to the interviewer in socially accepted manner, fair eye contact during course of interview. Motor Activity: Normal psychomotor activity. Speech: spontaneous, normal rate, rhythm, and articulation. Normal volume. Not pressured. Language: Articulating, naming objects and repeat phrases. Mood: Depressed Affect: constricted. Thought process: Linear goal-directed. Association: intact. Thought content: Denies delusions, denies current suicidal thoughts, eyes homicidal thoughts, no intentions, or plans. Perception: Denies any hallucinations Alertness: No impairment. Concentration: Intact Orientation: Patient was oriented to time, place, person, and situation Insight regarding psychiatric condition: Patient has fair insight about her psychiatric condition Judgment regarding daily activities and social situation: Patient has fair judgment about need for treatment Impulse control: Fair Assessment: Major depressive disorder, recurrent, severe, without psychotic features. Alcohol use disorder, severe. Alcohol withdrawal. Plan: Continue inpatient level of care due to further need for stabilization Precautions: Continue 15 minutes check for safety. Consider medical consultation if any acute medical issues arise. Provide the patient individual, group therapy, substance use disorder counseling to give better insight and learn coping skills. Continue follow-up with the patient daily to monitor progress of depression and alcohol withdrawal. Medications: Paxil 60 mg daily for depression and anxiety. Trazodone 150 mg at bedtime as needed for insomnia. Consider Vivitrol injection for alcohol craving. Non-psychiatric medications including Flexeril as needed for muscle relaxation, Motrin as needed for pain. Discharge patient to OUTPATIENT services upon a stabilization
[2019-08-26] MEDS: MAG HYDROX/AL HYDROX/SIMETH 30 ML CUP PO PRN (19:34)
[2019-08-26] MEDS: PARoxetine 20 MG TAB PO SCH (20:30)
[2019-08-26] MEDS: traZODone HCL 50 MG TAB PO PRN (20:32)
[2019-08-27] MEDS: CYCLOBENZAPRINE 5 MG TAB PO PRN ×3 (03:17→20:09)
[2019-08-27] MEDS: IBUPROFEN 600 MG TAB PO PRN ×2 (03:19→09:33)
[2019-08-27] MEDS: ACETAMINOPHEN TAB 325 MG TAB PO PRN ×3 (06:46→18:39)
[2019-08-27] MEDS: amLODIPine 2.5 MG TAB PO SCH (09:31)
[2019-08-27] MEDS: LORATADINE 10 MG TAB PO SCH (09:31)
[2019-08-27] MEDS: MULTIVITAMINS, THERA 1 EACH TAB PO SCH (09:33)
--- NOTE | 2019-08-27 14:38 | P.PN ---
Progress Note - Text Progress Note Date: 08/27/19 Clinical Problems: Suicidal ideation, unspecified depressive disorder, rule out major depressive disorder severe recurrent without psychotic features, alcohol use disorder severe, alcohol withdrawal, employment problems, financial problems Interim history: I reviewed the medical record, interviewed the patient and discussed her treatment and treatment plan during team meeting. She is a 59-year-old female known to this service from prior admissions. We discharge her in February 2019 with a diagnosis of suicidal ideation, alcohol use disorder and a depressive disorder. She described a 4 day rodriguez during which she developed increasing depression and suicidal ideation. She talked about "becoming frightened" by the suicidal thoughts and calling emergency services. She described relapsed to alcohol in context of mounting interpersonal and financial difficulties. 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 She is concerned that she will no longer be receiving unemployment income and may face eviction. She talked about the frustration with finding employment alleging that she was suspended "multiple" applications to no success. She also talked about the difficulties he had with the loss of friends many of whom have distanced themselves from her because of her alcohol use problems and the lack of Alcoholics Anonymous meetings as result of the pandemic. She is participated in therapeutic groups and activities. She is had minimal to mild alcohol withdrawal symptoms as measured by the CIWA. Mental status exam: She presented as a casually groomed 59-year-old female who had her right arm in a sling. She made eye contact and attended to the interview She had no prominent physical abnormalities. She had a sad facial expression. She was alert and oriented to person, place and time. She had psychomotor retardation but no abnormal movements. Her speech was spontaneous with normal rate and rhythm. Her affect was depressed. She denied current suicidal ideation or wishes. She expressed feelings of hopelessness and helplessness but denied worthlessness. She ruminated about her financial and employment problems. She did not express ideas reference, paranoid ideation or delusions. Her thinking was abstract and associations were coherent and logical. She denied hallucinations did not appear to be responding to internal stimuli. Assessment: She is having minimal alcohol withdrawal symptoms. She has signs and symptoms of a depressive disorder as well as severe and ongoing social issues. Plan: Continue hospitalization. Continue safety precautions. Continue Paxil 60 mg daily and trazodone 150 mg at bedtime when necessary for sleep. Continue Ativan when necessary for alcohol withdrawal symptoms. Increase Motrin 800 mg 3 times a day when necessary for pain and continue Flexeril 5 mg by mouth 3 times a day when necessary. Consider depression augmentation strategies. Discuss a referral for another substance abuse treatment episode. Refer for outpatient mental health services after discharge. Review of her treatment history. Encourage participation in therapeutic groups and activities. Evaluate clinical status response to treatment daily basis.
[2019-08-27] MEDS: IBUPROFEN 800 MG TAB PO PRN ×2 (15:03→23:23)
--- NOTE | 2019-08-27 15:29 | P.CNOR ---
History of Present Illness - [facility] Consult date: 08/27/19 Consult reason: joint pain History of present illness: Patient is a 59-year-old female who was admitted to the mental health unit at [facility] with depression and suicidal ideation. Since being admitted she has complained of right shoulder pain. Her orthopedic and was counseled for that. Patient Susanna shoulder pain for the last 2 weeks. She states that it initially started hurting when she was working on her lawnmower trying to get started. After the lawnmower incident, she did have a slip and fall getting out of her chair where she did land on the shoulder. She has been utilizing a sling on and off with some improvement. She admits to hurting the shoulder in the past, but has never seen an orthopedic doctor. She has no other orthopedic complaints at this time Review of Systems Constitutional: Reports as per [facility] Past Medical History Past Medical History: Hypertension Additional Past Medical History / Comment(s): gastric by pass in 2001 History of Any Multi-Drug Resistant Organisms: None Reported Past Surgical History: Section, Cholecystectomy, Hysterectomy Additional Past Surgical History / Comment(s): GASTRIC BYPASS, c4 c5 fusion in 2006, benign thryoid lesion removed 2008 Past Anesthesia/Blood Transfusion Reactions: No Reported Reaction Past Psychological History: Bipolar, Depression Smoking Status: Former smoker Past Alcohol Use History: Heavy Past Drug Use History: None Reported - Past Family History Father Family Medical History: Cancer Additional Family Medical History / Comment(s): both mom and dad of CA and sister has diabetes Medications and Allergies Home Medications Medication Instructions Recorded Confirmed Type Multivitamins, Thera [Multivitamin 2 tab PO DAILY 10/25/18 08/24/19 History (formulary)] Vitamin B Complex 2 cap PO DAILY 10/25/18 08/24/19 History amLODIPine [Norvasc] 2.5 mg PO DAILY 30 Days #30 tab 03/12/19 08/24/19 Rx EPINEPHrine (Auto Inject) [Epipen] 0.3 mg IM ONCE PRN 08/24/19 08/24/19 History Loratadine 10 mg PO DAILY 08/24/19 08/24/19 History PARoxetine HCL 40 mg PO DAILY 08/24/19 08/24/19 History PARoxetine [Paxil] 20 mg PO DAILY 08/24/19 08/24/19 History traZODone HCL 150 mg PO HS PRN 08/24/19 08/24/19 History Allergies Allergy/AdvReac Type Severity Reaction Status Date / Time bisoprolol [From Ziac] Allergy Severe Anaphylaxis Verified 08/24/19 15:49 hydrochlorothiazide Allergy Severe Anaphylaxis Verified 08/24/19 15:49 [From Ziac] codeine Allergy Unknown Verified 08/24/19 15:49 Latex, Natural Rubber Allergy Rash/Hives Verified 08/24/19 15:49 shellfish derived [Shrimp] Allergy Unknown Verified 08/24/19 15:49 Sulfa (Sulfonamide Allergy Unknown Verified 08/24/19 15:49 Antibiotics) Physical Examination Right upper extremity: Patient utilizing arm sling, there is no ecchymosis or soft tissue swelling, this no open lesions or areas of erythema Range of motion was assessed, she is able to forward elevate and abduct past 90, after 90 some pain is reproduced over the anterolateral aspect. Strength decreased noted also with [place] elevation and abduction above 90 Sensation to light touch with extremities intact, radial pulses 2+ Range of motion at the elbow and hand wrist are intact with no strength deficit appreciated Results - Labs Labs: H & H 08/25/19 Range/Units 07: Hgb 13.0 (11.4-16.0) gm/dL Hct 39.3 (34.0-46.0) % Result Diagrams: 08/25/19 07:08/25/19 07:20 - Diagnostic results Shoulder x-ray: report reviewed, image reviewed (Images demonstrate previous proximal humerus fracture involving the humeral neck. Difficult to determine if there is in no acute process present. ) Assessment and Plan Assessment: Right shoulder pain Old right proximal humerus/humeral head fracture Possible subacute proximal humerus fracture Other medical comorbidities Plan: I was able to discuss the case, including with physical exam findings and imaging studies my attending Dr. Gonzalez. No orthopedic surgical intervention recommended at this time We will continue with conservative management, this to include use of an arm sling along with icing and elevating. Discussed the patient she will continue with this treatment plan for the next couple weeks, she will avoid any excess lifting with the right upper extremity. After discharge from hospital, plan for follow-up with Dr. Gonzalez in the outpatient setting in 2 weeks for x-ray and clinical evaluation We'll be available for any further questions regarding this patient Time with Patient: Less than 30
[2019-08-27] MEDS: traZODone HCL 50 MG TAB PO PRN (21:02)
[2019-08-27] MEDS: PARoxetine 20 MG TAB PO SCH (21:02)
[2019-08-28] MEDS: ACETAMINOPHEN TAB 325 MG TAB PO PRN ×3 (04:46→21:02)
[2019-08-28] MEDS: CYCLOBENZAPRINE 5 MG TAB PO PRN ×3 (04:46→23:34)
[2019-08-28] MEDS: IBUPROFEN 800 MG TAB PO PRN ×3 (07:51→23:25)
[2019-08-28] MEDS: LORATADINE 10 MG TAB PO SCH (09:18)
[2019-08-28] MEDS: amLODIPine 2.5 MG TAB PO SCH (09:19)
[2019-08-28] MEDS: MULTIVITAMINS, THERA 1 EACH TAB PO SCH (09:19)
--- NOTE | 2019-08-28 14:58 | P.PN ---
Progress Note - Text Progress Note Date: 08/28/19 Clinical Problems: Suicidal ideation, unspecified depressive disorder, rule out major depressive disorder severe recurrent without psychotic features, alcohol use disorder severe, alcohol withdrawal, employment problems, financial problems Interim history: I reviewed the medical record, interviewed the patient and discussed her treatment and treatment plan during team meeting. She is less distressed than yesterday. She is decided to reenter a residential substance abuse treatment program and plans to speak with the socially responsible investment adviser about referral to [place]. She remains concerns about her multiple financial and social issues in particular not having the money to pay for rent. Mental status exam: She presented as a casually groomed 59-year-old female who had her right arm in a sling. She made eye contact and attended to the interview. She had no prominent physical abnormalities. She had a sad facial expression. She had psychomotor retardation but no abnormal movements. Her speech was spontaneous with normal rate and rhythm. Her affect was depressed. She denied current suicidal ideation or wishes. She expressed feelings of hopelessness and helplessness but denied worthlessness. She ruminated about her financial and employment problems. She did not express ideas reference, paranoid ideation or delusions. Her thinking was abstract and associations were coherent and logical. She denied hallucinations did not appear to be responding to internal stimuli. Assessment: She has not alcohol withdrawal symptoms. She has signs and symptoms of a depressive disorder as well as severe and ongoing financial and social issues. Plan: Continue hospitalization. Continue safety precautions. Augment antidepressant with Wellbutrin continue at 75 mg daily and titrated to clinical response and tolerance. Continue Paxil 60 mg daily and trazodone 150 mg at bedtime when necessary for sleep. Continue Ativan when necessary for alcohol withdrawal symptoms. Continue Motrin 800 mg 3 times a day when necessary for pain and continue Flexeril 5 mg by mouth 3 times a day when necessary. Consider depression augmentation strategies. Discuss a referral for another substance abuse treatment episode. Refer for outpatient mental health services after discharge. Review of her treatment history. Encourage participation in therapeutic groups and activities. Evaluate clinical status response to treatment daily basis.
[2019-08-28] MEDS: LORazepam 1 MG TAB PO PRN (15:19)
[2019-08-28] MEDS: NICOTINE 7MG/24HR PATCH TRANSDERM SCH (17:03)
[2019-08-28] MEDS: PARoxetine 20 MG TAB PO SCH (20:59)
[2019-08-28] MEDS: traZODone HCL 50 MG TAB PO PRN (21:01)
[2019-08-29] MEDS: ACETAMINOPHEN TAB 325 MG TAB PO PRN ×3 (03:31→18:43)
[2019-08-29] MEDS: LORazepam 1 MG TAB PO PRN ×2 (03:32→18:43)
[2019-08-29] MEDS: amLODIPine 2.5 MG TAB PO SCH (09:21)
[2019-08-29] MEDS: MULTIVITAMINS, THERA 1 EACH TAB PO SCH (09:21)
[2019-08-29] MEDS: buPROPion 75 MG TAB PO SCH (09:22)
[2019-08-29] MEDS: NICOTINE 7MG/24HR PATCH TRANSDERM SCH (09:22)
[2019-08-29] MEDS: LORATADINE 10 MG TAB PO SCH (09:22)
--- NOTE | 2019-08-29 12:07 | P.PN ---
Progress Note - Text Progress Note Date: 08/29/19 Clinical Problems: Suicidal ideation, unspecified depressive disorder, rule out major depressive disorder severe recurrent without psychotic features, alcohol use disorder severe, alcohol withdrawal, employment problems, financial problems Interim history: I reviewed the medical record, interviewed the patient and discussed her treatment and treatment plan during team meeting. She denied alcohol withdrawal symptoms. She denied feeling depressed or having thoughts of or suicide. She completed the [facility] telephone interviewed yesterday and the social welfare clerk reported during team that we completed the application packet. She denied side effects to the initial dose of Wellbutrin. Trace's primary concern was pain and dysfunction from her shoulder injury. She would like to be discharged home before admission to [facility] to complete her reapplication for unemployment, negotiated August rent payment with management and scheduled an appointment with the orthopedic surgeon. She doesn't anticipate the shoulder injury interfering with her ability to participate and the [facility] recovery program. Mental status exam: She presented as a casually groomed 59-year-old female who had her right arm in a sling. She made eye contact and attended to the interview. She had her right arm in a sling. She had a blunted but bright facial expression. She had no abnormality of psychomotor activity. Her speech was spontaneous with normal rate and rhythm. Her affect was blunted but reactive. She denied current suicidal ideation or wishes. She denied feelings of hopelessness and helplessness but denied worthlessness. She ruminated about her financial and employment problems. She did not express ideas reference, paranoid ideation or delusions. Her thinking was abstract and associations were coherent and logical. She denied hallucinations did not appear to be responding to internal stimuli. Assessment: She feels minimally mentally ill much improved from admission. At no signs and symptoms of alcohol withdrawal. She is denying feelings depressions or thoughts of or suicide. Plan: Continue hospitalization. Continue safety precautions. Continue Wellbutrin continue at 75 mg daily and titrated to clinical response and tolerance. Continue Paxil 60 mg daily and trazodone 150 mg at bedtime when necessary for sleep. Continue Ativan when necessary for alcohol withdrawal symptoms. Continue Motrin 800 mg 3 times a day when necessary for pain and continue Flexeril 5 mg by mouth 3 times a day when necessary. Discharge when we have a admission date to the [facility] rehabilitation program.
[2019-08-29] MEDS: IBUPROFEN 800 MG TAB PO PRN (14:27)
[2019-08-29] MEDS: CYCLOBENZAPRINE 5 MG TAB PO PRN (14:28)
[2019-08-29] MEDS: PARoxetine 20 MG TAB PO SCH (21:27)
[2019-08-29] MEDS: traZODone HCL 50 MG TAB PO PRN (21:27)
[2019-08-30] MEDS: IBUPROFEN 800 MG TAB PO PRN ×3 (03:59→16:26)
[2019-08-30] MEDS: NICOTINE 7MG/24HR PATCH TRANSDERM SCH (08:50)
[2019-08-30] MEDS: MULTIVITAMINS, THERA 1 EACH TAB PO SCH (08:50)
[2019-08-30] MEDS: buPROPion 75 MG TAB PO SCH (08:50)
[2019-08-30] MEDS: amLODIPine 2.5 MG TAB PO SCH (08:50)
[2019-08-30] MEDS: LORATADINE 10 MG TAB PO SCH (08:50)
[2019-08-30] MEDS: ACETAMINOPHEN TAB 325 MG TAB PO PRN ×2 (10:55→20:03)
[2019-08-30] MEDS: CYCLOBENZAPRINE 5 MG TAB PO PRN ×2 (11:17→20:03)
--- NOTE | 2019-08-30 13:08 | P.PN ---
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 She denied alcohol withdrawal symptoms. She denied feeling depressed or having thoughts of or suicide. She is committed to reentering substance abuse treatment but requests to return home in order to address personal and financial issues. She is experiencing less pain and discomfort and shoulder. Mental status exam: She presented as a casually groomed 59-year-old female who had her right arm in a sling. She made eye contact and attended to the interview. She had her right arm in a sling. She had a bright facial expression. She had no abnormality of psychomotor activity. Her speech was spontaneous with normal rate and rhythm. Her affect was bright and reactive. She denied current suicidal ideation or wishes. She denied feelings of ho pelessness and helplessness but denied worthlessness. She ruminated about her financial and employment problems. She did not express ideas reference, paranoid ideation or delusions. Her thinking was abstract and associations were coherent and logical. She denied hallucinations did not appear to be responding to internal stimuli. Assessment: She is much improved from admission. Plan: She is safe for discharge. Continue safety precautions. Continue Wellbutrin continue at 75 mg daily and titrated to clinical response and tolerance. Continue Paxil 60 mg daily and trazodone 150 mg at bedtime when necessary for sleep. Continue Ativan when necessary for alcohol withdrawal symptoms. Continue Motrin 800 mg 3 times a day when necessary for pain and continue Flexeril 5 mg by mouth 3 times a day when necessary. Discharge when we have a admission date to the [facility] program.
[2019-08-30] MEDS: traZODone HCL 50 MG TAB PO PRN (21:03)
[2019-08-30] MEDS: PARoxetine 20 MG TAB PO SCH (21:03)
[2019-08-31] MEDS: CYCLOBENZAPRINE 5 MG TAB PO PRN (04:52)
[2019-08-31] MEDS: IBUPROFEN 800 MG TAB PO PRN ×2 (04:52→10:52)
[2019-08-31 06:34] VITALS: BP 115/66; PULSE 101; RESP 16
[2019-08-31] MEDS: MULTIVITAMINS, THERA 1 EACH TAB PO SCH (09:29)
[2019-08-31] MEDS: LORATADINE 10 MG TAB PO SCH (09:29)
[2019-08-31] MEDS: amLODIPine 2.5 MG TAB PO SCH (09:29)
[2019-08-31] MEDS: NICOTINE 7MG/24HR PATCH TRANSDERM SCH (09:29)
[2019-08-31] MEDS: buPROPion 75 MG TAB PO SCH (09:29)
[2019-08-31] MEDS: MAG HYDROX/AL HYDROX/SIMETH 30 ML CUP PO PRN (09:31)
[2019-08-31 11:15] VITALS: BMI 26.4
[2019-08-31 13:54] VITALS: TEMP 98.7
--- NOTE | 2019-08-31 14:46 | P.DS ---
Providers Date of admission: 08/24/19 23:07 Attending physician: Horace Vargas MD Consults: 08/25/19 00:41 Consult Physician Routine Consulting Provider: Darion Ramirez Consult Reason/Comments: H&P Do you want consulting provider notified?: Yes 08/26/19 13:09 Consult Physician Routine Consulting Provider: Canelo Gonzalez Consult Reason/Comments: Right Shoulder Do you want consulting provider notified?: Yes Primary care physician: Darion Ramirez - Discharge Diagnosis(es) (1) Suicidal ideation Current Visit: Yes Status: Resolved Priority: Low (2) Alcohol use disorder, severe, dependence Current Visit: Yes Status: Chronic Priority: High (3) Alcohol withdrawal Current Visit: Yes Status: Resolved Priority: Low (4) Alcohol-induced mood disorder Current Visit: Yes Status: Chronic Priority: Medium Hospital Course: HISTORY: She is a 59-year-old female known to this service from prior admissions. We discharge her in February 2019 with a diagnosis of suicidal ideation, alcohol use disorder and a depressive disorder. She described a 4 day rodriguez during which she developed increasing depression and suicidal ideation. She talked about "becoming frightened" by the suicidal thoughts and calling emergency services. She described relapsed to alcohol in context of mounting interpersonal and financial difficulties. 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 She is concerned that she will no longer be receiving unemployment income and may face eviction. She talked about the frustration with finding employment alleging that she was suspended "multiple" applications to no success. She also talked about the difficulties he had with the loss of friends many of whom have distanced themselves from her because of her alcohol use problems and the lack of Alcoholics Anonymous meetings as result of the pandemic. HOSPITAL COURSE: We admitted her to psychiatric unit under care of this sba underwriter. We provided a comprehensive biopsychosocial assessment. The storage management consultant command and control systems integrator completed initial physical exam and medical history of diagnosed depression, left shoulder pain and hypertension. He recommended x-ray of the shoulder and orthopedic consult. The shoulder x-ray showed an old right proximal humerus/humeral head fracture but the orthopedic storage management consultant could not rule out a subacute proximal humerus fracture. He recommended conservative management including an arm sling, icing elevation as well as a follow-up appointment and orthopedic outpatient clinic in 2 weeks for x-ray clinical evaluation. He treated the shoulder pain with Motrin 800 mg every 8 when necessary and Flexeril 5 mg 3 times a day when necessary. She retreated the alcohol withdrawal symptoms with Ativan using the CIWA protocol. She had minimal alcohol withdrawal symptoms. We continued her outpatient dose of Paxil 60 mg at bedtime and Desyrel 150 mg at bedtime. We admitted her antidepressant with Wellbutrin 75 mg daily. She eventually decided to reenter residential substance abuse treatment. She has a intake appointment scheduled with [facility] mary carmen. She posed no management problems had no episodes of behavioral dyscontrol. She reported a marked improvement in her mood at discharge. MENTAL STATUS ON DISCHARGE: She presented as a casually groomed 59-year-old female who was pleasant on approach. She made eye contact and attended to the interview. She had her right arm in a sling. She had a blunted but bright facial expression. She is alert and oriented to person, place and time. She showed no abnormality of psychomotor activity. Her speech was spontaneous with normal rate, rhythm and volume. His affect was blunted but stable and appropriate. She denied suicidal ideation or wishes. She denied homicidal ideation. She denied feeling hopeless, helpless or worthless. She did not express ideas reference, paranoid ideation or delusions. Her thinking was abstract and associations were coherent and logical. She denied hallucinations did not appear to be responding to internal stimuli. DISPOSITION: Continue outpatient prescriptions of Paxil 60 mg at bedtime and Desyrel 150 mg at bedtime. We provided a 30 day supply of bupropion 75 mg daily. Continue other medications including Norvasc 2.5 mg daily, Flexeril 5 mg by mouth 3 times a day when necessary and Motrin 800 mg 3 times a day when necessary. She has a intake appointment scheduled with [facility] and admission intake appointment at [facility]. Patient Condition at Discharge: Stable Plan - Discharge Summary New Discharge Prescriptions: New Cyclobenzaprine [Flexeril] 5 mg PO TID PRN #45 tab PRN Reason: Muscle Spasm Nicotine 7Mg/24Hr Patch [Habitrol] 1 patch TRANSDERM DAILY patch Ibuprofen [Motrin] 800 mg PO TID PRN #45 tab PRN Reason: Pain buPROPion [Wellbutrin] 75 mg PO DAILY #30 tab Continue Vitamin B Complex 2 cap PO DAILY Multivitamins, Thera [Multivitamin (formulary)] 2 tab PO DAILY amLODIPine [Norvasc] 2.5 mg PO DAILY 30 Days #30 tab traZODone HCL 150 mg PO HS PRN PRN Reason: Insomnia PARoxetine HCL 40 mg PO DAILY EPINEPHrine (Auto Inject) [Epipen] 0.3 mg IM ONCE PRN PRN Reason: Anaphylaxis PARoxetine [Paxil] 20 mg PO DAILY Loratadine 10 mg PO DAILY Discharge Medication List Multivitamins, Thera [Multivitamin (formulary)] 2 tab PO DAILY 10/25/18 [History] Vitamin B Complex 2 cap PO DAILY 10/25/18 [History] amLODIPine [Norvasc] 2.5 mg PO DAILY 30 Days #30 tab 03/12/19 [Rx] EPINEPHrine (Auto Inject) [Epipen] 0.3 mg IM ONCE PRN 08/24/19 [History] Loratadine 10 mg PO DAILY 08/24/19 [History] PARoxetine HCL 40 mg PO DAILY 08/24/19 [History] PARoxetine [Paxil] 20 mg PO DAILY 08/24/19 [History] traZODone HCL 150 mg PO HS PRN 08/24/19 [History] Cyclobenzaprine [Flexeril] 5 mg PO TID PRN #45 tab 08/31/19 [Rx] Ibuprofen [Motrin] 800 mg PO TID PRN #45 tab 08/31/19 [Rx] Nicotine 7Mg/24Hr Patch [Habitrol] 1 patch TRANSDERM DAILY patch 08/31/19 [Rx] buPROPion [Wellbutrin] 75 mg PO DAILY #30 tab 08/31/19 [Rx] Follow up Appointment(s)/Referral(s): intake, intake [Other] - 09/04/19 12:30 pm Intake, Intake [Other] - 1 Week Darion Ramirez MD [Primary Care Provider] - 1-2 days Canelo Gonzalez DO [Doctor of Osteopathic Medicine] - 2 Weeks (Follow up for right shoulder pain) Patient Instructions/Handouts: Depression (DC), Alcohol Intoxication (DC), Help Prevent Suicide (DC) Activity/Diet/Wound Care/Special Instructions: Activity and diet as tolerated. Avoid the use of street drugs and alcohol. Take all medications as prescribed. When you are in need of refills on your medications please contact your medical provider and/or outpatient psychiatrist to have this done. Please go to scheduled outpatient appointment for aftercare treatment. If symptoms return or become worse, call the crisis line at and/or go to the nearest emergency room for evaluation Discharge Disposition: HOME SELF-CARE
== END 2019-08-31 14:51 | disposition home or self-care (01) | DRG 897 ==
LOC: EC 14:16 → 3MHU 23:07
PROVIDERS: ADMIT Psychiatry & Neurology Psychiatry; ATTEND Psychiatry & Neurology Psychiatry
DX: F10.24 Alcohol dependence with alcohol-induced mood disorder (principal); R45.851 Suicidal ideations; F10.239 Alcohol dependence with withdrawal, unspecified; F10.229 Alcohol dependence with intoxication, unspecified; F41.9 Anxiety disorder, unspecified; I10 Essential (primary) hypertension; M25.511 Pain in right shoulder; F17.211 Nicotine dependence, cigarettes, in remission; G47.00 Insomnia, unspecified; Z79.899 Other long term (current) drug therapy; Z59.9 Problem related to housing and economic circumstances, unspecified; Z56.0 Unemployment, unspecified; Z98.84 Bariatric surgery status; Z90.710 Acquired absence of both cervix and uterus; Z98.1 Arthrodesis status; Z98.891 History of uterine scar from previous surgery; Z90.49 Acquired absence of other specified parts of digestive tract; Z87.81 Personal history of (healed) traumatic fracture; Z98.890 Other specified postprocedural states; Z88.2 Allergy status to sulfonamides; Z88.8 Allergy status to other drugs, medicaments and biological substances; Z91.040 Latex allergy status; Z88.5 Allergy status to narcotic agent; Z91.013 Allergy to seafood; W01.0XXA Fall on same level from slipping, tripping and stumbling without subsequent striking against object, initial encounter; Z80.9 Family history of malignant neoplasm, unspecified; Z83.3 Family history of diabetes mellitus; Z81.8 Family history of other mental and behavioral disorders; Z82.49 Family history of ischemic heart disease and other diseases of the circulatory system
CPT/HCPCS: 80053; 80061; 80306; 82075; 83036; 84443; 85025; 93005; 99285